=== PATIENT | female | born 1945 | race Caucasian/White ===

== ENCOUNTER 2016-06-11 08:23 | Observation (INO) | payer MEDICARE ==
[2016-06-11] MEDS ORDERED: ASPIRIN 81 MG TABLET, CHEWABLE PO ONE (09:11)
[2016-06-11 10:10] LABS: ABSOLUTE BASOPHILS # (AUTO) 0.1 10^3/uL (0.0-0.2); ABSOLUTE EOSINOPHILS # (AUTO) 0.3 10^3/uL (0.0-0.6); ABSOLUTE LYMPHOCYTES (AUTO) 1.6 10^3/uL (0.5-4.7); ABSOLUTE MONOCYTES (AUTO) 0.4 10^3/uL (0.1-1.4); ABSOLUTE NEUT (AUTO) 3.9 10^3/uL (1.7-8.2); BASOPHILS % (AUTO) 0.9 % (0-2); HEMATOCRIT 35.3 % (36.0-47.0); HEMOGLOBIN 11.9 g/dL (12.0-15.5); HGB HCT DIFFERENCE 0.4; LYMPHOCYTES % (AUTO) 25.2 % (13-45); MEAN CORPUSCULAR HEMOGLOBIN 30.1 pg (27.0-33.4); MEAN CORPUSCULAR HGB CONC 33.7 g/dL (32.0-36.0); MEAN CORPUSCULAR VOLUME 89 fl (80-97); MONOCYTES % (AUTO) 6.3 % (3-13); RED BLOOD COUNT 3.95 10^6/uL (3.72-5.28); RED CELL DISTRIBUTION WIDTH 13.8 % (11.5-14.0); SEGMENTED NEUTROPHILS % (AUTO) 62.6 % (42-78); WHITE BLOOD COUNT 6.2 10^3/uL (4.0-10.5)
[2016-06-11 10:24] LABS: ALANINE AMINOTRANSFERASE 32 U/L (9-52); ALBUMIN 3.8 g/dL (3.5-5.0); ALKALINE PHOSPHATASE 78 U/L (38-126); ANION GAP 12 (5-19); ASPARTATE AMINO TRANSFERASE 30 U/L (14-36); BILIRUBIN,TOTAL 0.4 mg/dL (0.2-1.3); BLOOD UREA NITROGEN 14 mg/dL (7-20); CALCIUM 8.8 mg/dL (8.4-10.2); CARBON DIOXIDE 27 mmol/L (22-30); CHLORIDE 106 mmol/L (98-107); CREATINE KINASE 48 U/L (30-135); CREATININE RESULT 1.03 mg/dL (0.52-1.25); GLUCOSE 160 mg/dL (75-110); POTASSIUM 4.3 mmol/L (3.6-5.0); SODIUM 144.9 mmol/L (137-145); TOTAL PROTEIN 6.8 g/dL (6.3-8.2)
[2016-06-11 10:36] LABS: CREATINE KINASE MB 0.69 ng/mL (<4.55); TROPONIN I 0.013 ng/mL
--- NOTE | 2016-06-11 11:02 | ER Document Report ---
ED General - General Chief Complaint: Palpitations Stated Complaint: CHEST PAIN Mode of Arrival: Ambulatory Information source: Patient Notes: Patient presents to the emergency department with complaints of chest pain. Patient reports she was walking up with right shoulder pain at 6:30. She reports at that time she felt her heart beating very hard she began to sweat profusely and became nauseated. She denies fever vomiting diarrhea. She denies history of cardiac disease but reports that she has had this symptom before and has scheduled an appointment with Dr. Bates in [place] next Wednesday. Patient is a diabetic, with history of high cholesterol, HTN. TRAVEL OUTSIDE OF THE [place] IN LAST 30 DAYS: No - HPI Onset: This morning Onset/Duration: Sudden Severity: Mild - shoulder pain very minimal Associated symptoms: Nausea, Sweating Exacerbated by: Denies Relieved by: Denies Similar symptoms previously: Yes Recently seen / treated by doctor: No - Related Data Allergies/Adverse Reactions: No Known Allergies Allergy (Verified 07/04/14 10:23) Home Medications: Current Home Medications Aspirin [Aspirin EC] 81 mg PO DAILY 06/11/16 [History] Metoprolol Succinate [Toprol Xl 50 mg Tab.sr] 50 mg PO DAILY 06/11/16 [History] Omeprazole 20 mg PO DAILY 06/11/16 [History] Past Medical History - General Information source: Patient Last Menstrual Period: susana - Social History Smoking Status: Never Smoker Chew tobacco use (# tins/day): No Frequency of alcohol use: None Drug Abuse: None Lives with: Alone Family History: Reviewed & Not Pertinent Patient has suicidal ideation: No Patient has homicidal ideation: No - Past Medical History Cardiac Medical History: Reports: Hx Hypercholesterolemia, Hx Hypertension Denies: Hx Atrial Fibrillation, Hx Congestive Heart Failure, Hx Coronary Artery Disease, Hx Heart Attack Pulmonary Medical History: Reports: Hx Pneumonia Denies: Hx Asthma, Hx Bronchitis, Hx COPD, Hx Tuberculosis Neurological Medical History: Denies: Hx Cerebrovascular Accident, Hx Migraine, Hx Seizures Endocrine Medical History: Reports: Hx Diabetes Mellitus Type 1, Hx Diabetes Mellitus Type 2 Renal/ Medical History: Denies: Hx Peritoneal Dialysis Musculoskeltal Medical History: Denies Hx Arthritis, Denies Hx Gout, Denies Hx Multiple Sclerosis, Denies Hx Muscular Dystrophy Traumatic Medical History: Denies: Hx Traumatic Brain Injury Past Surgical History: Reports: Hx Bowel Surgery, Hx Breast Surgery, Hx Orthopedic Surgery - left arm, collar bone. Denies: Hx Appendectomy, Hx Section, Hx Cholecystectomy, Hx Coronary Artery Bypass Graft, Hx Gastric Bypass Surgery, Hx Herniorrhaphy, Hx Hysterectomy, Hx Mastectomy, Hx Pacemaker, Hx Tonsillectomy, Hx Tubal Ligation - Immunizations Hx Diphtheria, Pertussis, Tetanus Vaccination: - unsure Hx Pneumococcal Vaccination: 03/31/11 Review of Systems - Review of Systems Notes: Review HPI for review of systems., All other systems negative Physical Exam - Vital signs Vitals: Temp Pulse Resp BP Pulse Ox 97.5 F 56 L 20 149/54 H 97 06/11/16 08:40 06/11/16 08:40 06/11/16 08:40 06/11/16 08:40 06/11/16 08:40 - Notes Notes: PHYSICAL EXAMINATION: GENERAL: Patient looks good, nontoxic looking, Well-appearing and in no acute distress smiles easily, INAJA HEAD: Atraumatic, normocephalic. EYES: Pupils equal round extraocular movements intact, sclera anicteric, conjunctiva are normal. ENT: nares patent, oropharynx clear without exudates. Moist mucous membranes. NECK: Normal range of motion, supple without lymphadenopathy LUNGS: CTAB and equal. No wheezes rales or rhonchi. HEART: Regular rate and rhythm without murmurs ABDOMEN: Soft, no tenderness. No guarding, no rebound EXTREMITIES: Normal range of motion, no pitting edema. No cyanosis. NEUROLOGICAL: Cranial nerves grossly intact. Normal sensory/motor exams. PSYCH: Normal mood, normal affect. SKIN: Warm, Dry, normal turgor, no rashes or lesions noted Course - Re-evaluation Re-evalutation: 06/11/16 11:00 Dr. Amos consult ed for admission. Patient admitted to telemetry for chest pain. Patient updated on plan of care. She verbalized understanding no distress denies chest pain at this time - Vital Signs Vital signs: Temp Pulse Resp BP Pulse Ox 97.9 F 56 L 13 127/56 H 98 06/11/16 13:29 06/11/16 08:40 06/11/16 15:02 06/11/16 15:02 06/11/16 15:02 - Laboratory Result Diagrams: 06/11/16 09:36 06/11/16 09:36 Laboratory results interpreted by me: 06/11/16 06/11/16 06/11/16 09:36 09:36 13:00 Hgb 11.9 L Hct 35.3 L Est GFR (Non-Af Amer) 53 L Glucose 160 H Urine Blood SMALL H - Diagnostic Test Radiology reviewed: Image reviewed, Reports reviewed - IMPRESSION: CARDIAC ENLARGEMENT. MILD VASCULAR CONGESTION. - EKG Interpretation by Me EKG shows normal: Sinus rhythm Rate: Bradycardia When compared to previous EKG there are: No significant change Discharge - Discharge Clinical Impression: Chest pain Qualifiers: Chest pain type: unspecified Qualified Code(s): R07.9 - Chest pain, unspecified Condition: Stable Disposition: ADMITTED INPATIENT Admitting Provider: Hospitalist - [facility] Unit Admitted: Telemetry
[2016-06-11 13:41] LABS: APPEARANCE,URINE CLEAR; BILIRUBIN,URINE NEGATIVE (NEGATIVE); GLUCOSE, URINE NEGATIVE (NEGATIVE); KETONES,URINE NEGATIVE (NEGATIVE); LEUKOCYTE ESTERASE,URINE NEGATIVE (NEGATIVE); NITRITE,URINE NEGATIVE (NEGATIVE); PROTEIN,URINE NEGATIVE (NEGATIVE); URINE SPECIFIC GRAVITY 1.006; UROBILINOGEN,URINE NEGATIVE mg/dL (<2.0)
[2016-06-11] MEDS ORDERED: ACETAMINOPHEN 325 MG TABLET PO PRN (13:45)
[2016-06-11] MEDS ORDERED: ONDANSETRON HCL INJ/PF 4 MG/2 ML SDV IV PRN (13:53)
[2016-06-11] MEDS ORDERED: NITROGLYCERIN 0.4 MG/TAB 25 TAB/BOTTLE SL PRN (13:55)
[2016-06-11] MEDS ORDERED: DEXTROSE 50%-WATER 25 GM/50 ML DISP.SYRIN IV PRN ×2 (13:56)
[2016-06-11] MEDS ORDERED: GLUCAGON,HUMAN RECOMB 1 MG INJ IM PRN (13:56)
[2016-06-11] MEDS ORDERED: INSULIN REG, HUMAN 100 UNIT/ML 3 ML VIAL (PYX) SUBCUT PRN (13:56)
[2016-06-11] MEDS ORDERED: DEXTROSE 40% GEL 15 GM TUBE PO PRN ×2 (13:56)
--- NOTE | 2016-06-11 14:09 | PDOC H&P ---
History of Present Illness Admission Date/PCP: 06/11/16 11:08 RONEN VILLASEÑOR PA-C Patient complains of: Chest pain History of Present Illness: CECY RUIZ is a 71 year old female, diabetes mellitus, hypertension, hypercholesterolemia presents to the hospital with chest pain upon waking up this morning. Earlier today she woke up with shoulder pain on the right side. Patient has been dealing with arthritic pains in the shoulder for quite a while. Patient was having a lot of discomfort and eventually patient started to feel lightheaded with some sweating. This was subsequently followed by palpitation and chest tightness on the precordium without radiation. Patient also aspirated and partially relieved the symptoms. Patient went to the emergency room for evaluation. She had a recent stress test performed by his conveyor line battery charger last year. She was then referred for observation. The patient's chest pain eventually resolved. Past Medical History Past Medical History: Medications reconciliation pending verification from the patient's pharmacist Cardiac Medical History: Reports: Hyperlipidema, Hypertension Denies: Atrial Fibrillation, Congestive Heart Failure, Coronary Artery Disease, Myocardial Infarction Pulmonary Medical History: Reports: Pneumonia Denies: Asthma, Bronchitis, Chronic Obstructive Pulmonary Disease (COPD), Tuberculosis Neurological Medical History: Denies: Migraine, Seizures Endocrine Medical History: Reports: Diabetes Mellitus Type 1, Diabetes Mellitus Type 2 Musculoskeltal Medical History: Denies: Arthritis, Gout Traumatic Medical History: Denies: Traumatic Brain Injury Hematology: Denies: Anemia Past Surgical History Past Surgical History: Reports: Orthopedic Surgery - left arm, collar bone Denies: Appendectomy, Section, Cholecystectomy, Coronary Artery Bypass Graft, Gastric Bypass Surgery, Herniorrhaphy, Hysterectomy, Mastectomy, Pacemaker, Tonsillectomy, Tubal Ligation Social History Lives with: Alone Smoking Status: Never Smoker Frequency of Alcohol Use: None Hx Recreational Drug Use: No Drugs: None Hx Prescription Drug Abuse: No Family History Family History: DM Parental Family History Reviewed: Yes Children Family History Reviewed: Yes Sibling(s) Family History Reviewed.: Yes Medication/Allergy Home Medications: Metoprolol Tartrate [Lopressor 25 mg Tablet] 50 mg PO BID 11/08/12 Aspirin [Aspirin 81 mg Chewable Tablet] 1 tab PO DAILY 07/04/14 Glimepiride [Amaryl] 3 tab PO QHS 07/04/14 Simvastatin [Zocor 20 mg Tablet] 1 tab PO QHS 07/04/14 Vitamin D3/Vitamin K2 [D3 + K2 Dots 1,000 Units Tab] 1 tab PO DAILY 07/04/14 Omeprazole 20 mg PO DAILY 06/11/16 Allergies/Adverse Reactions: No Known Allergies Allergy (Verified 07/04/14 10:23) Review of Systems Constitutional: ABSENT: chills, fever(s), headache(s), weight gain, weight loss Eyes: ABSENT: visual disturbances Ears: ABSENT: hearing changes Nose, Mouth, and Throat: ABSENT: mouth pain, sore throat Cardiovascular: PRESENT: chest pain, palpitations. ABSENT: dyspnea on exertion , edema, orthropnea Respiratory: ABSENT: cough, hemoptysis, sputum Gastrointestinal: PRESENT: nausea. ABSENT: abdominal pain, bloating, constipation, diarrhea, hematemesis, hematochezia, melena, vomiting Genitourinary: ABSENT: dysuria, hematuria Musculoskeletal: ABSENT: joint swelling Integumentary: ABSENT: pruritus, rash, wounds Neurological: PRESENT: dizziness - More on lightheadedness. ABSENT: abnormal gait, abnormal speech, confusion, focal weakness, syncope Psychiatric: ABSENT: anxiety, depression, homidical ideation, suicidal ideation Endocrine: ABSENT: cold intolerance, heat intolerance, polydipsia, polyuria Hematologic/Lymphatic: ABSENT: easy bleeding, easy bruising Physical Exam Vital Signs: Temp Pulse Resp BP Pulse Ox 97.9 F 56 L 19 132/62 H 98 06/11/16 13:29 06/11/16 08:40 06/11/16 13:04 06/11/16 13:04 06/11/16 13:04 General appearance: PRESENT: no acute distress, well-developed, well-nourished Head exam: PRESENT: atraumatic, normocephalic Eye exam: PRESENT: conjunctiva pink, EOMI, PERRLA. ABSENT: scleral icterus Ear exam: PRESENT: normal external ear exam. ABSENT: drainage Mouth exam: PRESENT: moist, neck supple, tongue midline Throat exam: ABSENT: post pharyngeal erythema, tonsillar erythema Neck exam: ABSENT: carotid bruit, JVD, lymphadenopathy, thyromegaly Respiratory exam: PRESENT: clear to auscultation faby. ABSENT: rales, rhonchi, wheezes Cardiovascular exam: PRESENT: RRR, systolic murmur - Left sternal border. ABSENT: diastolic murmur, rubs Pulses: PRESENT: normal dorsalis pedis pul Vascular exam: PRESENT: normal capillary refill GI/Abdominal exam: PRESENT: normal bowel sounds, soft. ABSENT: distended, guarding, mass, organolmegaly, rebound, tenderness Rectal exam: PRESENT: deferred Extremities exam: PRESENT: full ROM. ABSENT: calf tenderness, clubbing, pedal edema Neurological exam: PRESENT: alert, awake, oriented to person, oriented to place , oriented to time, oriented to situation Psychiatric exam: PRESENT: appropriate affect, normal mood. ABSENT: homicidal ideation, suicidal ideation Skin exam: PRESENT: dry, intact, warm. ABSENT: cyanosis, rash Results Laboratory Results: 06/11/16 13:00 Urine Color STRAW Urine Appearance CLEAR Urine pH 5.0 Ur Specific [place] 1.006 Urine Protein NEGATIVE Urine Glucose (UA) NEGATIVE Urine Ketones NEGATIVE Urine Blood SMALL H Urine Nitrite NEGATIVE Ur Leukocyte Esterase NEGATIVE Urine WBC (Auto) 1 Urine RBC (Auto) 0 06/11/16 13:00 Troponin I 0.016 Impressions: Chest X-Ray 06/11/16 09:11 IMPRESSION: CARDIAC ENLARGEMENT. MILD VASCULAR CONGESTION. Assessment & Plan - Diagnosis (1) Chest pain Qualifiers: Chest pain type: unspecified Qualified Code(s): R07.9 - Chest pain, unspecified Is this a current diagnosis for this admission?: Yes (2) Hypercholesterolemia Is this a current diagnosis for this admission?: Yes (3) Diabetes mellitus type 2, controlled Qualifiers: Diabetes mellitus complication status: with unspecified complications Diabetes mellitus jail insulin use: without jail use Qualified Code(s): E11.8 - Type 2 diabetes mellitus with unspecified complications Is this a current diagnosis for this admission?: Yes (4) Hypertension Qualifiers: Hypertension type: essential hypertension Qualified Code(s): I10 - Essential (primary) hypertension Is this a current diagnosis for this admission?: Yes - Time Time Spent: 30 to 50 Minutes Anticipated discharge: Home Within: within 24 hours - Plan Summary Plan Summary: Patient will be admitted to observation. I will put the patient on aspirin and nitroglycerin. We will obtain serial cardiac enzymes. If negative patient can be discharged home. Patient have a cardiology appointment in 1 week in [place]. She will be on sliding scale insulin and her diabetic medication will be continued. She will be on supplemental oxygen and DVT prophylaxis.
[2016-06-11] MEDS: NITROGLYCERIN 2% OINTMENT 1 GM PACKET TP SCH (18:19)
[2016-06-11] MEDS: DOCUSATE SODIUM 100 MG CAPSULE PO SCH (18:19)
[2016-06-11] MEDS ORDERED: GLIMEPIRIDE 4 MG TABLET PO SCH (22:00)
[2016-06-11] MEDS ORDERED: SIMVASTATIN PO SCH (22:00)
[2016-06-11] MEDS ORDERED: GLIMEPIRIDE PO SCH (22:00)
[2016-06-11] MEDS ORDERED: SIMVASTATIN 10 MG TABLET PO SCH (22:00)
[2016-06-11] MEDS: METOPROLOL TARTRATE 50 MG TABLET PO SCH (22:29)
[2016-06-12] MEDS: NITROGLYCERIN 2% OINTMENT 1 GM PACKET TP SCH ×2 (00:19→06:37)
[2016-06-12] MEDS ORDERED: LANSOPRAZOLE 30 MG TAB.RAP.DR PO SCH (06:00)
[2016-06-12] MEDS ORDERED: ENOXAPARIN SODIUM INJ 40 MG/0.4 ML DISP.SYRIN SUBCUT SCH (08:00)
[2016-06-12] MEDS: DOCUSATE SODIUM 100 MG CAPSULE PO SCH (09:02)
[2016-06-12] MEDS: METOPROLOL TARTRATE 50 MG TABLET PO SCH (09:02)
[2016-06-12] MEDS ORDERED: VITAMIN K2 PO SCH (10:00)
[2016-06-12] MEDS ORDERED: CHOLECALCIFEROL (D3) 1,000 UNIT TABLET PO SCH (10:00)
[2016-06-12] MEDS ORDERED: VITAMIN D3 PO SCH (10:00)
[2016-06-12] MEDS ORDERED: ASPIRIN 81 MG TABLET, CHEWABLE PO SCH (10:00)
[2016-06-12 13:34] VITALS: BP 121/43
--- NOTE | 2016-06-12 13:38 | PDOC DISCHARGE SUMMARY ---
General - Admit/Disc Date/PCP Admission Date/Primary Care Provider: 06/11/16 13:45 RONEN VILLASEÑOR PA-C Discharge Date: 06/12/16 - Discharge Diagnosis (1) Chest pain Is this a current diagnosis for this admission?: Yes (2) Hypercholesterolemia Is this a current diagnosis for this admission?: Yes (3) Diabetes mellitus type 2, controlled Is this a current diagnosis for this admission?: Yes (4) Hypertension Is this a current diagnosis for this admission?: Yes - Additional Information Resuscitation Status: Full Code Discharge Diet: Cardiac - low-fat low-salt Discharge Activity: Activity As Tolerated, Balance Activity w/Rest Home Medications: Glimepiride [Amaryl] 3 mg PO QHS 07/04/14 Simvastatin [Zocor 20 mg Tablet] 20 mg PO QHS 07/04/14 Vitamin D3/Vitamin K2 [D3 + K2 Dots 1,000 Units Tab] 1 tab PO DAILY 07/04/14 Aspirin [Aspirin EC] 81 mg PO DAILY 06/11/16 Metoprolol Succinate [Toprol Xl 50 mg Tab.sr] 50 mg PO DAILY 06/11/16 Omeprazole 20 mg PO DAILY 06/11/16 Nitroglycerin [Nitrostat 0.4 mg (1/150 Gr) Tabs 25/Bottle] 1 tab SL Q5MP PRN #2 bottle 06/12/16 Additional Information: Return to the emergency room if symptoms recur. History of Present Illness Patient complains of: Chest pain History of Present Illness: CECY RUIZ is a 71 year old female, diabetes mellitus, hypertension, hypercholesterolemia presents to the hospital with chest pain upon waking up this morning. Earlier today she woke up with shoulder pain on the right side. Patient has been dealing with arthritic pains in the shoulder for quite a while. Patient was having a lot of discomfort and eventually patient started to feel lightheaded with some sweating. This was subsequently followed by palpitation and chest tightness on the precordium without radiation. Patient also aspirated and partially relieved the symptoms. Patient went to the emergency room for evaluation. She had a recent stress test performed by his block paver last year. She was then referred for observation. The patient's chest pain eventually resolved. Hospital Course Hospital Course: The patient was admitted to telemetry. The patient was placed on aspirin and nitroglycerin as well as oxygen. Patient has been chest pain-free all throughout. Serial cardiac enzymes were obtained and were negative. EKGs did not reveal any evolutionary changes. There is anterior T-wave abnormalities which were old and likewise first-degree AV block which were likewise old findings. The patient remains stable and wanted to go home and continue workup on an outpatient basis. Patient reports that she already has an appointment with her block paver in 5 days. The rest of the hospital stay is unremarkable. She was advised to return to the emergency room if symptoms recur. Physical Exam Vital Signs: Temp Pulse Resp BP Pulse Ox 97.9 F 52 L 18 128/50 H 100 06/12/16 07:56 06/12/16 07:56 06/12/16 07:56 06/12/16 07:56 06/12/16 07:56 Intake & Output 06/11/16 06/12/16 06/13/16 06:59 06:59 06:59 Intake Total 0 Balance 0 Weight 89 kg General appearance: PRESENT: no acute distress, cooperative Head exam: PRESENT: normocephalic Eye exam: PRESENT: EOMI, PERRLA Mouth exam: PRESENT: moist, neck supple Neck exam: ABSENT: JVD Respiratory exam: PRESENT: clear to auscultation faby. ABSENT: crackles, rales, rhonchi, wheezes Cardiovascular exam: PRESENT: RRR. ABSENT: gallop GI/Abdominal exam: PRESENT: normal bowel sounds, soft. ABSENT: distended, tenderness Extremities exam: PRESENT: other - Nonpitting edema Neurological exam: PRESENT: alert, awake, oriented to situation Skin exam: PRESENT: dry, warm. ABSENT: cyanosis Results Laboratory Results: 06/11/16 06/11/16 06/11/16 14:38 14:38 19:12 Creatine Kinase 41 41 Troponin I 0.015 06/11/16 06/12/16 19:12 01:34 Creatine Kinase Troponin I < 0.012 < 0.012 Impressions: Chest X-Ray 06/11/16 09:11 IMPRESSION: CARDIAC ENLARGEMENT. MILD VASCULAR CONGESTION. Qualifiers PATEINT BEING DISCHARGED WITH ANY OF THE FOLLOWING DIAGNOSIS?: No Plan Discharge Plan: Follow-up with primary care physician in one week to 2 weeks. Follow-up with block paver in 5 days. Return to the emergency room if symptoms recur. Time Spent: Less than 30 Minutes
--- NOTE | 2016-06-12 14:51 | EKG REPORT ---
SEVERITY:- ABNORMAL ECG - SINUS BRADYCARDIA LEFT AXIS DEVIATION ABNORMAL T, CONSIDER ISCHEMIA, ANTERIOR LEADS : Confirmed by: Yomi Diallo 12-Jun-2016 14:50:11
== END 2016-06-12 13:55 | disposition home or self-care (01) ==
LOC: ER 08:23 → EH 11:08 → UNDOADMOB 11:08 → EH 13:45 → 4S 06-12 01:15
DX: R07.9 Chest pain, unspecified (principal); E78.00 Pure hypercholesterolemia, unspecified; E11.9 Type 2 diabetes mellitus without complications; I10 Essential (primary) hypertension; Z79.84 Long term (current) use of oral hypoglycemic drugs; E78.5 Hyperlipidemia, unspecified
CPT/HCPCS: 93005; 99285; 36415 ×2; 82553; 82962 ×2; 82550; 85025; 80053; 81001; 84484 ×2; 71010; 93010; G0378 ×3; A9270 ×14; J1650; J3490 ×2; J1815

== ENCOUNTER 2016-06-23 06:37 | Day surgery (SDC) | payer MEDICARE ==
[2016-06-23] MEDS ORDERED: NA PHOS,M-B/NA PHOS,DI-BA (ADULT) 133 ML ENEMA PR ONE (07:09)
[2016-06-23] MEDS ORDERED: ONDANSETRON HCL INJ/PF 4 MG/2 ML SDV ONE (07:35)
[2016-06-23] MEDS ORDERED: NALOXONE HCL INJ/PF 0.4 MG/1 ML SDV ONE (07:35)
[2016-06-23] MEDS ORDERED: FLUMAZENIL INJ 0.5 MG/5 ML VIAL IV ONE (07:36)
[2016-06-23] MEDS ORDERED: FENTANYL CITRATE INJ/PF 100 MCG/2 ML AMPUL ONE (07:36)
[2016-06-23] MEDS ORDERED: MIDAZOLAM 2 MG/2 ML INJ ONE (07:36)
[2016-06-23] MEDS ORDERED: GLYCOPYRROLATE INJ 0.4 MG/2 ML VIAL ONE (07:36)
[2016-06-23] MEDS ORDERED: PROMETHAZINE HCL INJ 25 MG/1 ML VIAL ONE (07:36)
[2016-06-23] MEDS ORDERED: EPINEPHRINE INJ 1 MG/10 ML DISP.SYRIN ONE (07:37)
[2016-06-23] MEDS ORDERED: GLUCAGON,HUMAN RECOMB 1 MG INJ ONE (07:37)
[2016-06-23 07:40] LABS: HEMATOCRIT 35.7 % (36.0-47.0); HEMOGLOBIN 11.8 g/dL (12.0-15.5); HGB HCT DIFFERENCE -0.3; MEAN CORPUSCULAR VOLUME 91 fl (80-97); RED BLOOD COUNT 3.92 10^6/uL (3.72-5.28); RED CELL DISTRIBUTION WIDTH 13.8 % (11.5-14.0); WHITE BLOOD COUNT 7.1 10^3/uL (4.0-10.5)
--- NOTE | 2016-06-23 08:56 | Operative Report ---
Operative Report DATE OF SURGERY: 06/23/16 PREOPERATIVE DIAGNOSIS: History of colon polyps POSTOPERATIVE DIAGNOSIS: History of colon polyps, sigmoid diverticulosis, inadequate bowel prep. OPERATION: Flexible sigmoidoscopy SURGEON: ILANA BALBUENA ANESTHESIA: Moderate Sedation TISSUE REMOVED OR ALTERED: None COMPLICATIONS: None ESTIMATED BLOOD LOSS: none INTRAOPERATIVE FINDINGS: Multiple sigmoid diverticulosis. Inadequate bowel prep with solid and liquid stool throughout the sigmoid and left colon. PROCEDURE: Informed consent was obtained. Patient was brought to the endoscopy suite IV sedation with Versed and fentanyl was administered digital rectal exam revealed no palpable perianal masses. Endoscope was passed via the patient's anus the bowel prep was inadequate with solid and liquid stool throughout the sigmoid and the left colon. Scope was passed to the splenic flexure but I encountered more solid stool therefore the procedure was stopped with plans for having the patient undergo a different bowel prep and rescheduling of her colonoscopy. Visualization was not adequate due to the amount of stool in the colon however no large obstructive lesions were seen in the left colon nor the sigmoid colon nor the rectum. There were multiple large diverticuli of the sigmoid colon. Patient tolerated procedure well with no apparent complications and was taken to the recovery area in stable condition. Sigmoid diverticulosis. Inadequate bowel prep. Will have the patient undergo a different bowel prep and reschedule her for a colonoscopy.
[2016-06-23 10:14] VITALS: BP 125/52
== END 2016-06-23 09:45 | disposition home or self-care (01) ==
LOC: END 06:37
PROVIDERS: ATTEND Surgery
PROC: 0DJD8ZZ Inspection of Lower Intestinal Tract, Via Natural or Artificial Opening Endoscopic (ICD-10-PCS; principal; 2016-06-23 08:45)
DX: K57.30 Diverticulosis of large intestine without perforation or abscess without bleeding (principal); Z86.010 Personal history of colon polyps; E11.9 Type 2 diabetes mellitus without complications; I10 Essential (primary) hypertension; K21.9 Gastro-esophageal reflux disease without esophagitis; M19.90 Unspecified osteoarthritis, unspecified site; R01.1 Cardiac murmur, unspecified; H91.90 Unspecified hearing loss, unspecified ear; Z79.899 Other long term (current) drug therapy; Z79.82 Long term (current) use of aspirin
CPT/HCPCS: 45330; 36415; 82962; 85027; J2250; J3010; A9270; J0171; J1610; J2310; J2405; J2550; J3490

== ENCOUNTER 2016-08-18 09:06 | Day surgery (SDC) | payer MEDICARE ==
[2016-08-18] MEDS ORDERED: NALOXONE HCL INJ/PF 0.4 MG/1 ML SDV ONE (09:50)
[2016-08-18] MEDS ORDERED: PROMETHAZINE HCL INJ 25 MG/1 ML VIAL ONE (09:50)
[2016-08-18] MEDS ORDERED: ONDANSETRON HCL INJ/PF 4 MG/2 ML SDV ONE (09:50)
[2016-08-18] MEDS ORDERED: GLYCOPYRROLATE INJ 0.4 MG/2 ML VIAL ONE (09:51)
[2016-08-18] MEDS ORDERED: FLUMAZENIL INJ 0.5 MG/5 ML VIAL IV ONE (09:52)
[2016-08-18] MEDS ORDERED: FENTANYL CITRATE INJ/PF 100 MCG/2 ML AMPUL ONE (09:52)
[2016-08-18] MEDS ORDERED: EPINEPHRINE INJ 1 MG/10 ML DISP.SYRIN ONE (09:52)
[2016-08-18] MEDS ORDERED: GLUCAGON,HUMAN RECOMB 1 MG INJ ONE (09:52)
[2016-08-18 09:56] LABS: HEMATOCRIT 34.7 % (36.0-47.0); HEMOGLOBIN 11.5 g/dL (12.0-15.5); HGB HCT DIFFERENCE -0.2; MEAN CORPUSCULAR HEMOGLOBIN 29.6 pg (27.0-33.4); MEAN CORPUSCULAR HGB CONC 33.2 g/dL (32.0-36.0); MEAN CORPUSCULAR VOLUME 89 fl (80-97); RED BLOOD COUNT 3.89 10^6/uL (3.72-5.28); RED CELL DISTRIBUTION WIDTH 13.5 % (11.5-14.0); WHITE BLOOD COUNT 7.4 10^3/uL (4.0-10.5)
[2016-08-18 10:14] LABS: ANION GAP 13 (5-19); BLOOD UREA NITROGEN 15 mg/dL (7-20); CALCIUM 9.6 mg/dL (8.4-10.2); CARBON DIOXIDE 28 mmol/L (22-30); CHLORIDE 103 mmol/L (98-107); CREATININE RESULT 1.13 mg/dL (0.52-1.25); GLUCOSE 143 mg/dL (75-110); POTASSIUM 4.4 mmol/L (3.6-5.0); SODIUM 143.7 mmol/L (137-145)
[2016-08-18] MEDS: MIDAZOLAM 2 MG/2 ML INJ ONE ×2 (10:22→10:26)
--- NOTE | 2016-08-18 10:46 | Operative Report ---
Operative Report DATE OF SURGERY: 08/18/16 PREOPERATIVE DIAGNOSIS: History of colon polyps POSTOPERATIVE DIAGNOSIS: Poor bowel prep OPERATION: Flexible sigmoidoscopy. SURGEON: ILANA BALBUENA ANESTHESIA: Moderate Sedation TISSUE REMOVED OR ALTERED: None COMPLICATIONS: None ESTIMATED BLOOD LOSS: none INTRAOPERATIVE FINDINGS: Solid stool in the rectum and the sigmoid colon and the descending colon precluding adequate visualization of the colon PROCEDURE: Informed consent was obtained. Patient was brought to the endoscopy suite. IV sedation with Versed and fentanyl was administered. Digital rectal exam revealed no palpable perianal masses. Endoscope was passed via the patient's anus. The rectum was partially filled with the solid stool. The scope was able to be passed into the sigmoid colon where I encounter more stool and diverticuli. The scope was passed to the descending colon where encountered more solid stool. At this point I stopped the procedure due to inadequate bowel prep. The parts of the sigmoid colon and the rectum that I did visualize the was all unremarkable other than scattered diverticuli of the sigmoid colon. Patient tolerated procedure well with no apparent complications. Inadequate bowel prep. Will have the patient stay on clear liquids today and have her take another gallon of GoLYTELY and will plan to attempt another colonoscopy tomorrow.
--- NOTE | 2016-08-18 10:51 | PDOC DISCHARGE SUMMARY ---
Discharge Summary (SDC) - Discharge Final Diagnosis: Inadequate bowel prep. Date of Surgery: 08/18/16 Discharge Date: 08/18/16 Condition: Good Treatment or Instructions: Flexible sigmoidoscopy. Colonoscopy unable to be performed due to inadequate bowel prep. May discharge patient home when met discharge criteria. Have patient stay on clear liquids today. Nothing by mouth post midnight except for medications. Have patient take gallon of GoLYTELY this evening. Patient to return tomorrow for colonoscopy. Please schedule patient for colonoscopy for tomorrow morning. Prescriptions: Peg 3350/Na Sulf,Bicarb,Cl/KCl [Golytely Solution 4000 ml] 4,000 ml PO DAILY #1 bottle Discharge Diet: Clear Liquids - Stay on clear liquids today. Nothing by mouth after midnight except for medications. 1 gallon GoLYTELY this evening. Discharge Activity: Activity As Tolerated
[2016-08-18 11:48] VITALS: BP 133/53
== END 2016-08-18 12:00 | disposition home or self-care (01) ==
LOC: END 09:06
PROVIDERS: ATTEND Surgery
PROC: 0DJD8ZZ Inspection of Lower Intestinal Tract, Via Natural or Artificial Opening Endoscopic (ICD-10-PCS; principal; 2016-08-18 10:15)
DX: K57.30 Diverticulosis of large intestine without perforation or abscess without bleeding (principal); R11.2 Nausea with vomiting, unspecified; T81.89XA Other complications of procedures, not elsewhere classified, initial encounter; Y83.8 Other surgical procedures as the cause of abnormal reaction of the patient, or of later complication, without mention of misadventure at the time of the procedure; Y92.530 Ambulatory surgery center as the place of occurrence of the external cause; Z86.010 Personal history of colon polyps; I10 Essential (primary) hypertension; E78.5 Hyperlipidemia, unspecified; E10.9 Type 1 diabetes mellitus without complications; Z79.82 Long term (current) use of aspirin; Z79.899 Other long term (current) drug therapy
CPT/HCPCS: 45330; 36415; 82962; 85027; 80048; J2250; J3010; J0171; J1610; J2310; J2405; J2550; J3490

== ENCOUNTER 2016-08-19 09:11 | Day surgery (SDC) | payer MEDICARE ==
[2016-08-19] MEDS ORDERED: PROMETHAZINE HCL INJ 25 MG/1 ML VIAL ONE (11:14)
[2016-08-19] MEDS ORDERED: ONDANSETRON HCL INJ/PF 4 MG/2 ML SDV ONE (11:14)
[2016-08-19] MEDS ORDERED: NALOXONE HCL INJ/PF 0.4 MG/1 ML SDV ONE (11:14)
[2016-08-19] MEDS ORDERED: GLUCAGON,HUMAN RECOMB 1 MG INJ ONE (11:15)
[2016-08-19] MEDS ORDERED: EPINEPHRINE INJ 1 MG/10 ML DISP.SYRIN ONE (11:15)
[2016-08-19] MEDS ORDERED: FLUMAZENIL INJ 0.5 MG/5 ML VIAL IV ONE (11:15)
[2016-08-19] MEDS ORDERED: GLYCOPYRROLATE INJ 0.4 MG/2 ML VIAL ONE (11:15)
[2016-08-19] MEDS ORDERED: FENTANYL CITRATE INJ/PF 100 MCG/2 ML AMPUL ONE (11:15)
[2016-08-19] MEDS: MIDAZOLAM 2 MG/2 ML INJ ONE ×2 (11:29→11:33)
--- NOTE | 2016-08-19 11:56 | Operative Report ---
Operative Report DATE OF SURGERY: 08/19/16 PREOPERATIVE DIAGNOSIS: History of colon polyps. POSTOPERATIVE DIAGNOSIS: History of colon polyps OPERATION: Flexible sigmoidoscopy. SURGEON: ILANA BALBUENA ANESTHESIA: Moderate Sedation TISSUE REMOVED OR ALTERED: None COMPLICATIONS: None ESTIMATED BLOOD LOSS: none INTRAOPERATIVE FINDINGS: Still with poor prep with liquid thick stool throughout the colon, multiple large diverticuli throughout the colon PROCEDURE: Informed consent was obtained. Patient was brought to the endoscopy suite. IV sedation with Versed and fentanyl was administered. Digital rectal exam revealed no palpable perianal masses. Endoscope was passed via the patient's anus it was fed to probable bleed the descending colon. There was thick liquid stool throughout the colon making visualization very difficult. Furthermore she had multiple very large diverticuli that made the procedure very difficult with difficulty being able to see the lumen versus diverticuli especially with the thick liquid stool. With the bowel prep not getting better as I went more proximally into the colon, and the hazard that I was encountering with the diverticuli, I did not feel it safe to proceed with the current bowel prep. Procedure was stopped the scope was withdrawn. I did not see any obvious large masses but the visualization was poor. Assessment: Multiple large diverticuli of the colon. Combine with still a poor prep made for too hazardous of a colonoscopy. Will have her go 1 more day of the clear liquids with a GoLYTELY and reschedule her for colonoscopy tomorrow.
--- NOTE | 2016-08-19 11:59 | PDOC DISCHARGE SUMMARY ---
Discharge Summary (SDC) - Discharge Final Diagnosis: Diverticulosis of the colon. Inadequate bowel prep. Date of Surgery: 08/19/16 Discharge Date: 08/19/16 Condition: Good Treatment or Instructions: Attempted colonoscopy. May discharge patient home when met discharge criteria. We scheduled for colonoscopy tomorrow. Stay on clear liquids today. Taken another bottle of GoLYTELY this evening. Prescriptions: Peg 3350/Na Sulf,Bicarb,Cl/KCl [Golytely Solution 4000 ml] 4,000 ml PO DAILY #1 bottle Discharge Diet: Clear Liquids Discharge Activity: Activity As Tolerated Report the Following to Your Physician Immediately: Increase in Pain, Fever over 101 Degrees, Unusual Bleeding
[2016-08-19 12:38] VITALS: BP 153/55
== END 2016-08-19 12:42 | disposition home or self-care (01) ==
LOC: END 09:11
PROVIDERS: ATTEND Surgery
PROC: 0DJD8ZZ Inspection of Lower Intestinal Tract, Via Natural or Artificial Opening Endoscopic (ICD-10-PCS; principal; 2016-08-19 10:00)
DX: K57.30 Diverticulosis of large intestine without perforation or abscess without bleeding (principal); Z86.010 Personal history of colon polyps; E11.9 Type 2 diabetes mellitus without complications; I10 Essential (primary) hypertension; K21.9 Gastro-esophageal reflux disease without esophagitis; M19.90 Unspecified osteoarthritis, unspecified site; R01.1 Cardiac murmur, unspecified; H91.90 Unspecified hearing loss, unspecified ear; Z79.82 Long term (current) use of aspirin; Z79.899 Other long term (current) drug therapy
CPT/HCPCS: 45330; 82962; J2250; J3010; J1610; J0171; J2310; J2405; J2550; J3490

== ENCOUNTER 2016-08-20 09:50 | Observation (INO) | payer MEDICARE ==
[2016-08-20] MEDS ORDERED: ONDANSETRON HCL INJ/PF 4 MG/2 ML SDV ONE ×3 (10:38→15:33)
[2016-08-20] MEDS ORDERED: PROMETHAZINE HCL INJ 25 MG/1 ML VIAL ONE (10:38)
[2016-08-20] MEDS ORDERED: NALOXONE HCL INJ/PF 0.4 MG/1 ML SDV ONE (10:38)
[2016-08-20] MEDS ORDERED: FLUMAZENIL INJ 0.5 MG/5 ML VIAL IV ONE (10:39)
[2016-08-20] MEDS ORDERED: GLYCOPYRROLATE INJ 0.4 MG/2 ML VIAL ONE (10:39)
[2016-08-20] MEDS ORDERED: GLUCAGON,HUMAN RECOMB 1 MG INJ ONE (10:40)
[2016-08-20] MEDS ORDERED: EPINEPHRINE INJ 1 MG/10 ML DISP.SYRIN ONE (10:40)
[2016-08-20] MEDS: MIDAZOLAM 2 MG/2 ML INJ ONE ×3 (11:16→11:37)
[2016-08-20] MEDS: FENTANYL CITRATE INJ/PF 100 MCG/2 ML AMPUL ONE ×4 (11:18→11:42)
--- NOTE | 2016-08-20 12:35 | PDOC DISCHARGE SUMMARY ---
Discharge Summary (SDC) - Discharge Final Diagnosis: Diverticulosis of the colon. History of colon polyps. Date of Surgery: 08/20/16 Discharge Date: 08/20/16 Condition: Good Treatment or Instructions: Underwent colonoscopy. Inadequate visualization of the colon however. Please ordered double contrast barium enema through radiology today. Follow-up with me in 1-2 weeks. Discharge Diet: As Tolerated Discharge Activity: Activity As Tolerated Report the Following to Your Physician Immediately: Increase in Pain, Fever over 101 Degrees, Unusual Bleeding
--- NOTE | 2016-08-20 12:36 | Operative Report ---
Operative Report DATE OF SURGERY: 08/20/16 PREOPERATIVE DIAGNOSIS: History of Colon polyps POSTOPERATIVE DIAGNOSIS: History of colon polyps, diverticulosis of the colon. OPERATION: Colonoscopy SURGEON: ILANA BALBUENA ANESTHESIA: Moderate Sedation TISSUE REMOVED OR ALTERED: None COMPLICATIONS: None ESTIMATED BLOOD LOSS: none INTRAOPERATIVE FINDINGS: Multiple large diverticuli of the sigmoid and left colon. Markedly markedly markedly redundant colon precluding good visualization of the colon. PROCEDURE: Informed consent was obtained. Patient was brought to the endoscopy suite. IV sedation with Versed and fentanyl was administered. Digital rectal exam revealed no palpable perianal masses. Endoscope was passed via the patient's anus it was fed to the cecum. The procedure was extremely difficult due to the marked redundancies of her colon as well as multiple large diverticuli in the left and sigmoid colon. After multiple technical measures the scope was able to be passed to the cecum. However due to the marked redundancies of her colon adequately visualization was not able to be obtained. No obvious masses were identified. No obstructive lesions were seen. Multiple large diverticuli was encountered in the left and the sigmoid colon. The rectum appeared normal. Patient tolerated procedure well with no apparent complications and was taken to the recovery area in stable condition. Assessment: No obvious abnormalities other than extensive diverticulosis noted. However I am not confident at all that I have visualize the colon adequately. Her marked redundancies preclude adequate visualization of her colon. Her bowel prep was finally adequate at this time. I will order a double contrast barium enema. Follow-up with the patient after this study.
[2016-08-20] MEDS ORDERED: ONDANSETRON HCL INJ/PF 4 MG/2 ML SDV IV ONE ×2 (13:00→16:00)
[2016-08-20] MEDS ORDERED: GLUCAGON,HUMAN RECOMB 1 MG INJ IM PRN (16:27)
[2016-08-20] MEDS ORDERED: DEXTROSE 40% GEL 15 GM TUBE PO PRN ×2 (16:27)
[2016-08-20] MEDS ORDERED: ONDANSETRON HCL INJ/PF 4 MG/2 ML SDV IV PRN (16:27)
[2016-08-20] MEDS ORDERED: DEXTROSE 50%-WATER 25 GM/50 ML DISP.SYRIN IV PRN ×2 (16:27)
[2016-08-20] MEDS ORDERED: NORMAL SALINE 1000 ML 1,000 ML IV PRN (16:27)
[2016-08-20] MEDS ORDERED: (PENDING PHARMACY ID) (Cholecalciferol (Vitamin D3) [Vitamin D3] 50,000 UNIT) PO PRN (16:32)
[2016-08-20] MEDS ORDERED: NITROGLYCERIN 0.4 MG/TAB 25 TAB/BOTTLE SL PRN (16:32)
--- NOTE | 2016-08-20 16:39 | PDOC H&P ---
History of Present Illness Admission Date/PCP: RONEN VILLASEÑOR PA-C Patient complains of: Nausea History of Present Illness: CECY RUIZ is a 71 year old female who underwent colonoscopy today followed by double contrast barium enema. She had the a lot of difficulty obtaining adequate bowel prep for colonoscopy and has been on clear liquids for the past 5 days with multiple doses of GoLYTELY. This was her third colonoscopy attempt this week due to inadequate bowel prep. Her bowel prep was finally adequate this time however due to the marked redundancies of her bowel it was not adequate visualization of the colon therefore she underwent the double contrast barium enema today. We did not want to reschedule her for double contrast barium enema because it was so difficult to obtain adequate prep. She has the been having nausea and vomiting after her procedures today although it has the markedly improved. With the patient's generalized weakness the due to the difficulties of this week and her nausea, will admit the patient for observation and IV fluids. Patient denies any abdominal pain. Past Medical History Cardiac Medical History: Reports: Hyperlipidema, Hypertension Denies: Atrial Fibrillation, Congestive Heart Failure, Coronary Artery Disease, Myocardial Infarction Pulmonary Medical History: Reports: Pneumonia Denies: Asthma, Bronchitis, Chronic Obstructive Pulmonary Disease (COPD), Tuberculosis Neurological Medical History: Denies: Migraine, Seizures Endocrine Medical History: Reports: Diabetes Mellitus Type 1, Diabetes Mellitus Type 2 Musculoskeltal Medical History: Denies: Arthritis, Gout Psychiatric Medical History: Reports: Depression Traumatic Medical History: Denies: Traumatic Brain Injury Hematology: Denies: Anemia Past Surgical History Past Surgical History: Reports: Orthopedic Surgery - left arm, collar bone Denies: Appendectomy, Section, Cholecystectomy, Coronary Artery Bypass Graft, Gastric Bypass Surgery, Herniorrhaphy, Hysterectomy, Mastectomy, Pacemaker, Tonsillectomy, Tubal Ligation Social History Smoking Status: Unknown if Ever Smoked Frequency of Alcohol Use: None Hx Recreational Drug Use: No Drugs: None Hx Prescription Drug Abuse: No Family History Family History: Reviewed & Not Pertinent Parental Family History Reviewed: No Children Family History Reviewed: No Sibling(s) Family History Reviewed.: No Medication/Allergy Home Medications: Glimepiride [Amaryl] 3 mg PO QHS 07/04/14 Simvastatin [Zocor 20 mg Tablet] 20 mg PO QHS 07/04/14 Aspirin [Aspirin EC] 81 mg PO DAILY 06/11/16 Metoprolol Succinate [Toprol Xl 50 mg Tab.sr] 25 mg PO DAILY 06/11/16 Omeprazole 20 mg PO DAILY 06/11/16 Nitroglycerin [Nitrostat 0.4 mg (1/150 Gr) Tabs 25/Bottle] 1 tab SL Q5MP PRN #2 bottle 06/12/16 Calcium Carb & Citrate/Vit D3 [Calcium + D3 ER Tablet] 1 each PO DAILY 08/17/16 Cholecalciferol (Vitamin D3) [Vitamin D3] 50,000 unit PO ASDIR PRN 08/17/16 Ibandronate Sodium [Boniva] 150 mg PO ASDIR PRN 08/17/16 Losartan Potassium [Cozaar 100 mg Tablet] 100 mg PO DAILY 08/17/16 Ferrous Sulfate [Iron] 325 mg PO DAILY 08/18/16 Allergies/Adverse Reactions: No Known Allergies Allergy (Verified 08/20/16 10:14) Physical Exam Vital Signs: Temp Pulse Resp BP Pulse Ox 97.3 F 47 L 16 140/50 H 93 08/20/16 13:10 08/20/16 13:10 08/20/16 13:10 08/20/16 13:10 08/20/16 13:10 Intake & Output 08/19/16 08/20/16 08/21/16 06:59 06:59 06:59 Intake Total 750 Balance 750 Weight 77.11 kg General appearance: PRESENT: no acute distress, cooperative Respiratory exam: PRESENT: clear to auscultation faby Cardiovascular exam: PRESENT: RRR GI/Abdominal exam: PRESENT: other - Soft, mildly distended with no significant tenderness to palpation. Extremities exam: PRESENT: +2 edema - Bilateral lower extremities. Results Impressions: Barium Enema w/ Air Contrast, therapeutic 08/20/16 13:08 IMPRESSION: Limited study due to redundant loops of colon. No annular constricting lesions or large polypoid masses. Colonic diverticulosis. Assessment & Plan - Diagnosis (1) Nausea & vomiting Qualifiers: Vomiting type: unspecified Is this a current diagnosis for this admission?: YesPlan: Postprocedure nausea. Will admit the patient for IV fluids and observation. If she feels better will advance her diet tonight. Will likely discharge patient home tomorrow.
[2016-08-20] MEDS ORDERED: GLIMEPIRIDE PO SCH (22:00)
[2016-08-20] MEDS ORDERED: SIMVASTATIN 10 MG TABLET PO SCH (22:00)
[2016-08-20] MEDS ORDERED: GLIMEPIRIDE 1 MG TABLET PO SCH (22:00)
[2016-08-21] MEDS ORDERED: ENOXAPARIN SODIUM INJ 30 MG/0.3 ML DISP.SYRIN SUBCUT SCH (08:00)
--- NOTE | 2016-08-21 08:56 | PDOC PROGRESS REPORT ---
Subjective Progress Note for:: 08/21/16 Subjective:: feels well. no dizziness. tolerating diet well. no abdominal pain Physical Exam Vital Signs: Temp Pulse Resp BP Pulse Ox 98.1 F 49 L 20 147/51 H 100 08/21/16 08:31 08/21/16 08:31 08/21/16 08:31 08/21/16 08:31 08/21/16 08:31 Intake & Output 08/20/16 08/21/16 08/22/16 06:59 06:59 06:59 Intake Total 1497 Balance 1497 Weight 77.11 kg General appearance: PRESENT: no acute distress, cooperative Respiratory exam: PRESENT: clear to auscultation faby Cardiovascular exam: PRESENT: RRR - hr 60 GI/Abdominal exam: PRESENT: other - soft, nd ntp Results Impressions: Barium Enema w/ Air Contrast, therapeutic 08/20/16 13:08 IMPRESSION: Limited study due to redundant loops of colon. No annular constricting lesions or large polypoid masses. Colonic diverticulosis. Assessment & Plan - Diagnosis (1) Nausea & vomiting Qualifiers: Vomiting type: unspecified Is this a current diagnosis for this admission?: YesPlan: resolved. pt looks good. d/c home
[2016-08-21 09:02] VITALS: BP 147/63
--- NOTE | 2016-08-21 09:08 | DISCHARGE SUMMARY E ---
Discharge Summary NAME: CECY RUIZ : 1945 AGE: 71Y ADMITTED: 08/20/2016 DISCHARGED: 08/21/2016 DISCHARGE DIAGNOSIS: Postprocedure nausea and vomiting. HOSPITAL COURSE: The patient was admitted for observation after her colonoscopy and double contrast barium enema. She had some lightheadedness and some nausea and vomiting. She did well in the hospital. She was tolerating a diet well and was feeling quite well with no further episodes of nausea or vomiting. Her abdominal exam looked good. Patient is now being discharged to home in good condition. Of note, her heart rate did run low with a heart rate around 49-56 but at the time of discharge she was asymptomatic. She is on a beta leon. Her blood pressure looked good with pressures running anywhere between 112/50 to 147/51. Patient is now being discharged to home in good condition. She will follow up with me next week. Of note, her barium enema demonstrated multiple large diverticuli of the descending and sigmoid colon, markedly redundant colon, but no suspicious lesions. This study was done after a colonoscopy due to the fact that adequate visualization was not able to be obtained due to her anatomy during the colonoscopy. The colonoscopy findings were consistent with the barium enema findings. Patient may resume all of her home medications. She may resume her home diet as well. DICTATING PHYSICIAN: ESEQUIEL BALBUENA M.D. [id number] Y#: [id number] ID: [id number] JOB#: [id number] ACCT: [id number] cc:ESEQUIEL BALBUENA M.D. >
[2016-08-21] MEDS ORDERED: ASPIRIN 81 MG TABLET, ENT COATED PO SCH (10:00)
[2016-08-21] MEDS ORDERED: FERROUS SULFATE 325 MG TABLET PO SCH (10:00)
[2016-08-21] MEDS ORDERED: METOPROLOL SUCCINATE 50 MG TAB.SR.24H PO SCH (10:00)
[2016-08-21] MEDS ORDERED: LANSOPRAZOLE 15 MG TAB.RAP.DR PO SCH (10:00)
[2016-08-21] MEDS ORDERED: (PENDING PHARMACY ID) (Calcium Carb & Citrate/Vit D3 [Calcium + D3 Er Tablet] 1 EACH) PO SCH (10:00)
[2016-08-21] MEDS ORDERED: LOSARTAN POTASSIUM 50 MG TABLET PO SCH (10:00)
[2016-08-21] MEDS ORDERED: (PENDING PHARMACY ID) (Ferrous Sulfate [Iron] 325 MG) PO SCH (10:00)
== END 2016-08-21 11:37 | disposition home or self-care (01) ==
LOC: END 09:50 → 4W 16:27
PROVIDERS: ADMIT Surgery; ATTEND Surgery
PROC: 0DJD8ZZ Inspection of Lower Intestinal Tract, Via Natural or Artificial Opening Endoscopic (ICD-10-PCS; principal; 2016-08-20 10:30)
DX: R11.2 Nausea with vomiting, unspecified (principal); K57.30 Diverticulosis of large intestine without perforation or abscess without bleeding; Z86.010 Personal history of colon polyps; I10 Essential (primary) hypertension; E11.9 Type 2 diabetes mellitus without complications
CPT/HCPCS: 45378; 82962 ×2; 74280; G0378 ×2; G0379; A9270 ×2; J2250; J3010; J3490; J2405; J0171; J1610; J2310; J2550

== ENCOUNTER 2016-12-31 07:21 | Day surgery (SDC) | payer MEDICARE ==
[~2016-12-31 07:21] MED LIST: KETOROLAC TROMETHAMINE 0.45% 4 DROP/0.4 ML DROPERETTE OS PRN; MIDAZOLAM 2 MG/2 ML INJ ONE
[2016-12-31] MEDS ORDERED: EPINEPHRINE INJ/PF 1 MG/1 ML AMPULE ONE (07:44)
[2016-12-31] MEDS ORDERED: LIDOCAINE 1% INJ-PF (10 MG/ML) 30 ML SDV ONE (07:45)
[2016-12-31] MEDS ORDERED: CHONDR SU A NA/HYALUR INTRAOC KIT (SURGICARE) ONE (07:45)
[2016-12-31] MEDS: TROPICAMIDE 1% OPH SOLN 3 ML OS PRN ×3 (07:55→08:15)
[2016-12-31] MEDS: CYCLOPENTOLATE 0.2%/PHENYLEPHRINE 1% OPH SOLN 2 ML OS PRN ×3 (07:55→08:15)
[2016-12-31] MEDS: BESIFLOXACIN HCL 0.6% OPH SUSP 5 ML BOTTLE OS PRN ×3 (07:56→09:02)
[2016-12-31] MEDS: TETRACAINE HCL 0.5% OPH SOLN 2 ML OS PRN ×3 (07:57→08:30)
[2016-12-31] MEDS ORDERED: MIDAZOLAM 2 MG/2 ML INJ ONE (08:18)
--- NOTE | 2017-01-01 12:58 | [facility] OPERATIVE REPORT E ---
[facility] Operative Report NAME: CECY RUIZ AGE: 71Y DATE OF SURGERY: 12/31/2016 ROOM: PREOPERATIVE DIAGNOSIS: CATARACT, LEFT EYE. POSTOPERATIVE DIAGNOSIS: CATARACT, LEFT EYE. OPERATION: Cataract extraction with intraocular lens implant of the left eye. SURGEON: IVETH SCHAFFER M.D. ANESTHESIA: Topical. PROCEDURE: After obtaining appropriate consent, the patient's left eye was prepped and draped in sterile fashion as well as the surgeon in a sterile manner and cataract surgery was started. First a paracentesis blade was used to make a small side-port incision. Viscoelastic was used to inflate the anterior chamber. Next a 2.4 mm incision was made with the paracentesis blade. A continuous capsulorrhexis incision was made using a cystotome and Utrata forceps. Following this hydrodissection was carried out to make the lens fully loose and mobile and it was rotated 90 degrees. Following this, a cxegbz-bto-ielnjwk technique was used to phacoemulsify the lens with a CDE of 11.19. The remaining cortex was removed with irrigation/aspiration. Provisc was instilled into the capsular bag to inflate the bag. A SN60WF, 20.0 diopter lens was placed. The remaining viscoelastic material was removed with irrigation/aspiration. Following this, a 10-0 nylon suture was used to close the incision and it was found to be watertight. Vigamox was instilled in the eye and a protective shield was placed over the eye. The patient returned to the postoperative recovery in stable condition. DICTATING PHYSICIAN: IVETH SCHAFFER M.D. 1211M [id number] PHY#: [id number] ID: [id number] JOB#: [id number] ACCT: [id number] cc:IVETH SCHAFFER M.D. >
--- NOTE | 2017-01-01 12:58 | [facility] DISCHARGE SUMMARY E ---
[facility] Discharge Summary NAME: CECY RUIZ AGE: 71Y ADMITTED: 12/31/2016 DISCHARGED: 12/31/2016 HOSPITAL COURSE: This is a 71-year-old female who underwent cataract extraction of her left eye. DIAGNOSIS: Cataract, left eye. INDICATIONS: She underwent surgery because she was having glare from headlights at night making it difficult to drive. DISCHARGE INSTRUCTIONS: She should be on a regular diet. No bending at her waist. No heavy lifting. She should use her Besivance, Ilevro, and Durezol at 3 p.m. and 8 p.m. and sleep with a rigid shield. I will see her for her 1 day postoperative tomorrow. DICTATING PHYSICIAN: IVETH SCHAFFER M.D. [id number] [id number] PHY#: [id number] ID: [id number] JOB#: [id number] ACCT: [id number] cc:IVETH SCHAFFER M.D. >
== END 2016-12-31 09:52 | disposition home or self-care (01) ==
LOC: SC 07:21
PROVIDERS: ATTEND Internal Medicine
PROC: 08RK3JZ Replacement of Left Lens with Synthetic Substitute, Percutaneous Approach (ICD-10-PCS; principal; 2016-12-31 08:30)
DX: H25.813 Combined forms of age-related cataract, bilateral (principal); E11.3291 Type 2 diabetes mellitus with mild nonproliferative diabetic retinopathy without macular edema, right eye; H04.123 Dry eye syndrome of bilateral lacrimal glands; H43.813 Vitreous degeneration, bilateral; E11.9 Type 2 diabetes mellitus without complications; I10 Essential (primary) hypertension; K21.9 Gastro-esophageal reflux disease without esophagitis; E78.00 Pure hypercholesterolemia, unspecified; G43.109 Migraine with aura, not intractable, without status migrainosus; D64.9 Anemia, unspecified; R01.1 Cardiac murmur, unspecified; Z79.82 Long term (current) use of aspirin; Z79.1 Long term (current) use of non-steroidal anti-inflammatories (NSAID); Z79.899 Other long term (current) drug therapy; Z79.84 Long term (current) use of oral hypoglycemic drugs
CPT/HCPCS: 82962; 66984; V2632; J2250; J3490 ×2; A9270; J0171; 142

== ENCOUNTER 2017-01-21 08:30 | Day surgery (SDC) | payer MEDICARE ==
[~2017-01-21 08:30] MED LIST changes: -KETOROLAC TROMETHAMINE 0.45% 4 DROP/0.4 ML DROPERETTE OS PRN; +LIDOCAINE 3.5% OPH GEL/PF 1 ML/TUBE OD PRN; -MIDAZOLAM 2 MG/2 ML INJ ONE
[2017-01-21] MEDS: CYCLOPENTOLATE 0.2%/PHENYLEPHRINE 1% OPH SOLN 2 ML OD PRN ×3 (09:13→09:33)
[2017-01-21] MEDS: TETRACAINE HCL 0.5% OPH SOLN 2 ML OD PRN ×4 (09:13→09:46)
[2017-01-21] MEDS: KETOROLAC TROMETHAMINE 0.45% 4 DROP/0.4 ML DROPERETTE OD PRN ×2 (09:13→09:14)
[2017-01-21] MEDS: TROPICAMIDE 1% OPH SOLN 3 ML OD PRN ×3 (09:13→09:33)
[2017-01-21] MEDS: BESIFLOXACIN HCL 0.6% OPH SUSP 5 ML BOTTLE OD PRN ×3 (09:14→10:08)
[2017-01-21] MEDS ORDERED: CHONDR SU A NA/HYALUR INTRAOC KIT (SURGICARE) ONE (09:24)
[2017-01-21] MEDS ORDERED: EPINEPHRINE INJ/PF 1 MG/1 ML AMPULE ONE (09:24)
[2017-01-21] MEDS ORDERED: LIDOCAINE 1% INJ-PF (10 MG/ML) 30 ML SDV ONE (09:24)
[2017-01-21] MEDS ORDERED: MIDAZOLAM 2 MG/2 ML INJ ONE (09:34)
--- NOTE | 2017-01-21 22:22 | [facility] OPERATIVE REPORT E ---
[facility] Operative Report NAME: CECY RUIZ AGE: 71Y DATE OF SURGERY: 01/21/2017 ROOM: PREOPERATIVE DIAGNOSIS: CATARACT, RIGHT EYE. POSTOPERATIVE DIAGNOSIS: CATARACT, RIGHT EYE. OPERATION: Cataract extraction with intraocular lens implant of the right eye. SURGEON: IVETH SCHAFFER M.D. ANESTHESIA: Topical. PROCEDURE: After obtaining appropriate consent, the patient's right eye was prepped and draped in sterile fashion as well as the surgeon in a sterile manner and cataract surgery was started. First a paracentesis blade was used to make a small side-port incision. Viscoelastic was used to inflate the anterior chamber. Next a 2.4 mm incision was made with the paracentesis blade. A continuous capsulorrhexis incision was made using a cystotome and Utrata forceps. Following this hydrodissection was carried out to make the lens fully loose and mobile and it was rotated 90 degrees. Following this, a lronyw-mhp-vjftshy technique was used to phacoemulsify the lens with a CDE of 8.78. The remaining cortex was removed with irrigation/aspiration. Provisc was instilled into the capsular bag to inflate the bag. A SN60WF, 19.0 diopter lens was placed. The remaining viscoelastic material was removed with irrigation/aspiration. Following this, a 10-0 nylon suture was used to close the incision and it was found to be watertight. Vigamox was instilled in the eye and a protective shield was placed over the eye. The patient returned to the postoperative recovery in stable condition. DICTATING PHYSICIAN: IVETH SCHAFFER M.D. [id number] PHY#: [id number] ID: [id number] JOB#: [id number] ACCT: [id number] cc:IVETH SCHAFFER M.D. >
--- NOTE | 2017-01-21 22:27 | DISCHARGE SUMMARY E ---
Discharge Summary NAME: CECY RUIZ : 1945 AGE: 71Y ADMITTED: 01/21/2017 DISCHARGED: This is a 71-year-old female who underwent cataract extraction of the right eye. DIAGNOSIS: Cataract, right eye. HOSPITAL COURSE: She underwent surgery because she was having difficulty reading and watching TV. DISCHARGE INSTRUCTIONS: 1. She should be on a regular diet. 2. No bending at the waist. 3. No heavy lifting. 4. She should use her Besivance, Ilevro, and Durezol at 3 p.m. and 8 p.m. and sleep with a rigid shield. 5. I will see her for her 1 day postoperative tomorrow. DICTATING PHYSICIAN: IVETH SCHAFFER M.D. [id number] Y#: [id number] ID: [id number] JOB#: [id number] ACCT: [id number] cc:IVETH SCHAFFER M.D. >
== END 2017-01-21 10:45 | disposition home or self-care (01) ==
LOC: SC 08:30
PROVIDERS: ATTEND Internal Medicine
PROC: 08RJ3JZ Replacement of Right Lens with Synthetic Substitute, Percutaneous Approach (ICD-10-PCS; principal; 2017-01-21 10:00)
DX: H25.811 Combined forms of age-related cataract, right eye (principal); Z96.1 Presence of intraocular lens; Z98.42 Cataract extraction status, left eye; I10 Essential (primary) hypertension; E11.9 Type 2 diabetes mellitus without complications; I49.9 Cardiac arrhythmia, unspecified; R01.1 Cardiac murmur, unspecified; Z79.82 Long term (current) use of aspirin; Z79.899 Other long term (current) drug therapy
CPT/HCPCS: 66984; 82962; V2632; J2250; J3490 ×2; A9270; J0171; 142

== ENCOUNTER 2017-06-04 11:32 | Emergency (ER) | payer MEDICARE, OTHER ==
[2017-06-04] MEDS ORDERED: ASPIRIN 81 MG TABLET, CHEWABLE PO ONE (13:22)
--- NOTE | 2017-06-04 13:23 | ER Document Report ---
ED Medical Screen (RME) - General Chief Complaint: Chest Pain Stated Complaint: STOMACH RIB BACK PAIN Time Seen by Provider: 06/04/17 13:18 Mode of Arrival: Ambulatory Information source: Patient Notes: 72-year-old female who is to have a stress test next few days presents with complaints of chest pain abdominal pain and the nasal infection. I have greeted and performed a rapid initial assessment of this patient. A comprehensive ED assessment and evaluation of the patient, analysis of test results and completion of the medical decision making process will be conducted by additional ED providers. PHYSICAL EXAMINATION: GENERAL: Well-appearing, well-nourished and in no acute distress. HEAD: Atraumatic, normocephalic. EYES: Pupils equal round extraocular movements intact, conjunctiva are normal. ENT: Dry scab left nostril with erythema NECK: Normal range of motion LUNGS: No respiratory distress Musculoskeletal: Normal range of motion NEUROLOGICAL: Normal speech, normal gait. PSYCH: Normal mood, normal affect. SKIN: Warm, Dry, normal turgor, no rashes or lesions noted. Inverted T waves noted similar to previous study from one year ago TRAVEL OUTSIDE OF THE [place] IN LAST 30 DAYS: No - Related Data Allergies/Adverse Reactions: kiwi Allergy (Verified 01/19/17 14:30) Facial edema and rash Home Medications: Current Home Medications Losartan Potassium [Cozaar 50 mg Tablet] 50 mg PO DAILY 06/04/17 [History] Omeprazole Magnesium [Prilosec Otc] 20 mg PO DAILY 06/04/17 [History] Past Medical History - Past Medical History Cardiac Medical History: Reports: Hx Hypercholesterolemia, Hx Hypertension Denies: Hx Atrial Fibrillation, Hx Congestive Heart Failure, Hx Coronary Artery Disease, Hx Heart Attack Pulmonary Medical History: Reports: Hx Pneumonia Denies: Hx Asthma, Hx Bronchitis, Hx COPD, Hx Tuberculosis Neurological Medical History: Denies: Hx Cerebrovascular Accident, Hx Migraine, Hx Seizures Endocrine Medical History: Reports: Hx Diabetes Mellitus Type 1, Hx Diabetes Mellitus Type 2 Renal/ Medical History: Denies: Hx Peritoneal Dialysis GI Medical History: Denies: Hx Hepatitis, Hx Hiatal Hernia, Hx Ulcer Musculoskeltal Medical History: Denies Hx Arthritis, Denies Hx Gout, Denies Hx Multiple Sclerosis, Denies Hx Muscular Dystrophy Psychiatric Medical History: Reports: Hx Depression Traumatic Medical History: Denies: Hx Traumatic Brain Injury Infectious Medical History: Denies: Hx Hepatitis Past Surgical History: Reports: Hx Bowel Surgery, Hx Breast Surgery, Hx Orthopedic Surgery - left arm, collar bone. Denies: Hx Appendectomy, Hx Section, Hx Cholecystectomy, Hx Coronary Artery Bypass Graft, Hx Gastric Bypass Surgery, Hx Herniorrhaphy, Hx Hysterectomy, Hx Mastectomy, Hx Open Heart Surgery, Hx Pacemaker, Hx Tonsillectomy, Hx Tubal Ligation - Immunizations Hx Diphtheria, Pertussis, Tetanus Vaccination: No - unsure Physical Exam - Vital signs Vitals: Temp Pulse Resp BP Pulse Ox 98.5 F 76 18 186/77 H 96 06/04/17 11:54 06/04/17 11:54 06/04/17 11:54 06/04/17 11:54 06/04/17 11:54 Course - Vital Signs Vital signs: Temp Pulse Resp BP Pulse Ox 98.5 F 76 18 186/77 H 96 06/04/17 11:54 06/04/17 11:54 06/04/17 11:54 06/04/17 11:54 06/04/17 11:54
[2017-06-04 14:07] LABS: ABSOLUTE LYMPHOCYTES (AUTO) 0.6 10^3/uL (0.5-4.7); ABSOLUTE MONOCYTES (AUTO) 0.4 10^3/uL (0.1-1.4); ABSOLUTE NEUT (AUTO) 7.7 10^3/uL (1.7-8.2); BASOPHILS % (AUTO) 0.4 % (0-2); EOSINOPHILS % (AUTO) 0.5 % (0-6); HEMATOCRIT 38.6 % (36.0-47.0); LYMPHOCYTES % (AUTO) 6.5 % (13-45); MEAN CORPUSCULAR HEMOGLOBIN 30.2 pg (27.0-33.4); MEAN CORPUSCULAR HGB CONC 33.7 g/dL (32.0-36.0); MEAN CORPUSCULAR VOLUME 90 fl (80-97); MONOCYTES % (AUTO) 4.4 % (3-13); PLATELET COUNT 194 10^3/uL (150-450); RED BLOOD COUNT 4.31 10^6/uL (3.72-5.28); RED CELL DISTRIBUTION WIDTH 13.6 % (11.5-14.0); SEGMENTED NEUTROPHILS % (AUTO) 88.2 % (42-78); TOTAL CELLS COUNTED % (AUTO) 100 %; WHITE BLOOD COUNT 8.8 10^3/uL (4.0-10.5)
--- NOTE | 2017-06-04 14:13 | RADIOLOGY REPORT (SQ) ---
EXAM DESCRIPTION: CHEST SINGLE VIEW COMPLETED DATE/TIME: 06/04/2017 2:03 pm REASON FOR STUDY: chest pain COMPARISON: 06/11/2016. EXAM PARAMETERS: NUMBER OF VIEWS: One view. TECHNIQUE: Single frontal radiographic view of the chest acquired. RADIATION DOSE: NA LIMITATIONS: None. FINDINGS: LUNGS AND PLEURA: No opacities, masses or pneumothorax. No pleural effusion. MEDIASTINUM AND HILAR STRUCTURES: No masses. Contour normal. HEART AND VASCULAR STRUCTURES: Mild cardiomegaly. Normal vasculature. BONES: No acute findings. HARDWARE: None in the chest. OTHER: No other significant finding. IMPRESSION: MILD CARDIOMEGALY. OTHERWISE NO ACUTE RADIOGRAPHIC FINDING IN THE CHEST. TECHNICAL DOCUMENTATION: JOB ID: [id number] [employer]- All Rights Reserved
[2017-06-04 14:20] LABS: ALANINE AMINOTRANSFERASE 109 U/L (9-52); ALBUMIN 4.2 g/dL (3.5-5.0); ALKALINE PHOSPHATASE 149 U/L (38-126); ANION GAP 12 (5-19); ASPARTATE AMINO TRANSFERASE 191 U/L (14-36); BILIRUBIN,DIRECT 0.6 mg/dL (0.0-0.4); BILIRUBIN,TOTAL 1.1 mg/dL (0.2-1.3); BLOOD UREA NITROGEN 15 mg/dL (7-20); CALCIUM 9.9 mg/dL (8.4-10.2); CARBON DIOXIDE 28 mmol/L (22-30); CHLORIDE 104 mmol/L (98-107); CREATINE KINASE 37 U/L (30-135); GLUCOSE 168 mg/dL (75-110); POTASSIUM 4.5 mmol/L (3.6-5.0); SODIUM 143.7 mmol/L (137-145); TOTAL PROTEIN 6.8 g/dL (6.3-8.2)
[2017-06-04 14:32] LABS: CREATINE KINASE MB 0.83 ng/mL (<4.55); TROPONIN I 0.022 ng/mL
[2017-06-04] MEDS ORDERED: ONDANSETRON HCL INJ/PF 4 MG/2 ML SDV IV ONE (14:45)
--- NOTE | 2017-06-04 14:50 | ER Document Report ---
ED General - General Chief Complaint: Chest Pain Stated Complaint: STOMACH RIB BACK PAIN Time Seen by Provider: 06/04/17 13:18 Mode of Arrival: Ambulatory Notes: The patient is a 72-year-old female, past medical history hypertension, diabetes , presents with 2 days of nausea, dysuria and right posterior rib pain. She said that she has cardiac angina symptoms for the past several months and is scheduled for a stress test in [address] Bates at [facility]. She was worried today because her right back pain would not resolve. SHe is also having redness and cracking of her left nostril after she has been wiping it multiple times this winter. She is using Neosporin cream. Patient denies vomiting, diarrhea, fevers, rash, hematuria, shortness of breath, numbness, tingling, fevers or exertional chest pain. TRAVEL OUTSIDE OF THE [place] IN LAST 30 DAYS: No - Related Data Allergies/Adverse Reactions: kiwi Allergy (Verified 01/19/17 14:30) Facial edema and rash Home Medications: Current Home Medications Losartan Potassium [Cozaar 50 mg Tablet] 50 mg PO DAILY 06/04/17 [History] Omeprazole Magnesium [Prilosec Otc] 20 mg PO DAILY 06/04/17 [History] Past Medical History - General Information source: Patient - Social History Smoking Status: Never Smoker Chew tobacco use (# tins/day): No Frequency of alcohol use: None Drug Abuse: None Family History: Reviewed & Not Pertinent Patient has suicidal ideation: No Patient has homicidal ideation: No - Past Medical History Cardiac Medical History: Reports: Hx Hypercholesterolemia, Hx Hypertension Denies: Hx Atrial Fibrillation, Hx Congestive Heart Failure, Hx Coronary Artery Disease, Hx Heart Attack Pulmonary Medical History: Reports: Hx Pneumonia Denies: Hx Asthma, Hx Bronchitis, Hx COPD, Hx Tuberculosis Neurological Medical History: Denies: Hx Cerebrovascular Accident, Hx Migraine, Hx Seizures Endocrine Medical History: Reports: Hx Diabetes Mellitus Type 1, Hx Diabetes Mellitus Type 2 Renal/ Medical History: Denies: Hx Peritoneal Dialysis GI Medical History: Denies: Hx Hepatitis, Hx Hiatal Hernia, Hx Ulcer Musculoskeltal Medical History: Denies Hx Arthritis, Denies Hx Gout, Denies Hx Multiple Sclerosis, Denies Hx Muscular Dystrophy Psychiatric Medical History: Reports: Hx Depression Traumatic Medical History: Denies: Hx Traumatic Brain Injury Infectious Medical History: Denies: Hx Hepatitis Past Surgical History: Reports: Hx Bowel Surgery, Hx Breast Surgery, Hx Orthopedic Surgery - left arm, collar bone. Denies: Hx Appendectomy, Hx Section, Hx Cholecystectomy, Hx Coronary Artery Bypass Graft, Hx Gastric Bypass Surgery, Hx Herniorrhaphy, Hx Hysterectomy, Hx Mastectomy, Hx Open Heart Surgery, Hx Pacemaker, Hx Tonsillectomy, Hx Tubal Ligation - Immunizations Hx Diphtheria, Pertussis, Tetanus Vaccination: No - unsure Hx Pneumococcal Vaccination: 03/31/11 Review of Systems - Review of Systems Notes: REVIEW OF SYSTEMS: CONSTITUTIONAL: -fevers, -chills EENT: -eye pain, -difficulty swallowing, -nasal congestion CARDIOVASCULAR: +chest pain, -syncope. RESPIRATORY: -cough, -SOB GASTROINTESTINAL: -abdominal pain, +nausea, -vomiting, -diarrhea GENITOURINARY: +dysuria, -hematuria MUSCULOSKELETAL: +back pain, -neck pain SKIN: -rash or skin lesions. HEMATOLOGIC: -easy bruising or bleeding. LYMPHATIC: -swollen, enlarged glands. NEUROLOGICAL: -altered mental status or loss of consciousness, -headache, - neurologic symptoms PSYCHIATRIC: -anxiety, -depression. ALL OTHER SYSTEMS REVIEWED AND NEGATIVE. Physical Exam - Vital signs Vitals: Temp Pulse Resp BP Pulse Ox 98.5 F 76 18 186/77 H 96 06/04/17 11:54 06/04/17 11:54 06/04/17 11:54 06/04/17 11:54 06/04/17 11:54 - Notes Notes: PHYSICAL EXAMINATION: GENERAL: Well-appearing, well-nourished and in no acute distress. HEAD: Atraumatic, normocephalic. EYES: Pupils equal round and reactive to light, extraocular movements intact, sclera anicteric, conjunctiva are normal. ENT: nares patent, oropharynx clear without exudates. Moist mucous membranes. Mild erythema and dried skin at distal tip of left nostril. NECK: Normal range of motion, supple without lymphadenopathy LUNGS: Breath sounds clear to auscultation bilaterally and equal. No wheezes rales or rhonchi. HEART: Regular rate and rhythm without murmurs ABDOMEN: Soft, nontender, normoactive bowel sounds. No guarding, no rebound. No masses appreciated. EXTREMITIES: Normal range of motion, no pitting or edema. No cyanosis. NEUROLOGICAL: Cranial nerves grossly intact. Normal speech, normal gait. Normal sensory and motor exams. PSYCH: Normal mood, normal affect. SKIN: Warm, Dry, normal turgor, no rashes or lesions noted. Course - Re-evaluation Re-evalutation: Patient's chest pain is ongoing for several months and she has a stress test scheduled in [place] in 3 days. EKGs did not show any acute changes and 2 sets of troponins are also negative. Patient with right flank pain and no acute changes on CT scan other than marked constipation. She has LFT elevation and right upper quadrant ultrasound ordered, which showed GB sludge and mild distention. No RUQ tenderness and negative Taurus's sign. On final reevaluation, patient feels much better and is having no symptoms at this time. Instructed her to follow-up with her primary care physician for further evaluation and treatment. Also provided her with GI and surgery follow-up with very strict return precautions, especially about cholecystitis. Told her that she must follow-up for her stress test and to return at any time. - Vital Signs Vital signs: Temp Pulse Resp BP Pulse Ox 98.5 F 76 27 H 144/50 H 94 06/04/17 11:54 06/04/17 11:54 06/04/17 18:01 06/04/17 18:01 06/04/17 18:01 - Laboratory Result Diagrams: 06/04/17 13:39 06/04/17 13:39 Laboratory results interpreted by me: 06/04/17 06/04/17 06/04/17 13:39 13:39 15:23 Seg Neutrophils % 88.2 H Lymphocytes % 6.5 L Est GFR (Non-Af Amer) 56 L Glucose 168 H Direct Bilirubin 0.6 H AST 191 H ALT 109 H Alkaline Phosphatase 149 H Urine Protein 30 H Urine Glucose (UA) 50 H Urine Blood MODERATE H Urine Urobilinogen 4.0 H - Diagnostic Test Radiology reviewed: Image reviewed, Reports reviewed Radiology results interpreted by me: CT A/P: marked constipation, no other acute findings RUQ US: GB sludge, mild distention, no stones or CBD dilation - EKG Interpretation by Me EKG shows normal: Sinus rhythm, [place], Intervals, QRS Complexes When compared to previous EKG there are: No significant change Additional EKG results interpreted by me: Old T-wave changes in anterior leads Discharge - Discharge Clinical Impression: Flank pain, Elevated LFTs Hematuria Qualifiers: Hematuria type: unspecified type Qualified Code(s): R31.9 - Hematuria, unspecified Chest pain Qualifiers: Chest pain type: unspecified Qualified Code(s): R07.9 - Chest pain, unspecified Condition: Stable Disposition: HOME, SELF-CARE Additional Instructions: Follow-up with your product support representative for further evaluation and treatment of your chest pain as scheduled this week. Your liver blood tests are also elevated today and your ultrasound shows possible gallbladder sludge, but no evidence of acute gallbladder infection. Eat a low-fat diet and return to the ER if you have worsening pain. Continue to stay hydrated and return to the ER if you have any new concerns. CHEST PAIN OF UNCLEAR CAUSE: The exact cause of your chest pain isn't clear. Fortunately, there is no evidence of a dangerous medical condition. Further testing may be required to find the source of the pain. Most often, we find that this pain is coming from the chest wall -- the muscles or rib joints in the chest. But chest pain can come from the lung and lung lining, the esophagus, the heart valves or heart lining, and even the stomach or gallbladder. Rest. Eat lightly until the pain is gone. We may prescribe medicine for pain and inflammation. You should call the physician immediately if the pain radiates to the shoulder, jaw or arms; if you start to run a fever or develop a cough; or if you develop shortness of breath, or other new or alarming symptoms. NORMAL EXAM AND WORKUP: At this time, your examination and workup show no significant abnormality. No significant abnormal physical findings were noted. All laboratory, EKG, and imaging (x-ray, CT scans, ultrasound) studies that were ordered show no significant abnormality. Although your examination and all studies that were ordered showed no significant abnormal finding, there are no examinations and no studies that are 100% accurate. There is always the possibility that some abnormality could exist and not be detected with physical examination or within the limits and capabilities of laboratory and other studies. You should return or follow up as you were instructed on your visit today for further evaluation if your symptoms do not resolve. CHEST WALL PAIN: Your chest pain may be coming from the chest wall. This is often caused by straining the muscles or joints in the chest during physical activity, direct trauma, coughing, or vigorous vomiting. Persons with arthritis are especially prone to this type of pain, due to inflammation of the cartilage joints near the breast bone. Occasionally, no cause can be found. Rest from strenuous physical activity. This kind of chest pain is usually made worse by movement of the chest. Depending on the symptoms, we may prescribe medicine for pain, muscle relaxation, and antiinflammatory effects. If the pain is new, and seems to be due to muscle strain, cold packs can help. Otherwise, apply gentle warmth to the painful area for 15 minutes every hour or two. You should call contact the doctor immediately if things change. Further evaluation is needed if you develop a fever or cough, if the nature of the pain changes, or if you become short of breath. ANGINA EPISODE: Your physician has diagnosed the pain you experienced as an episode of angina. Angina occurs when a portion of the heart muscle temporarily lacks oxygen. It does not cause any permanent heart damage, but serves as a warning. Hospitalization is not necessary now. Evaluation of your cardiac condition , and medical therapy for angina will be necessary. It's important you be sure to keep all appointments and take medication exactly as prescribed. Angina is usually treated with a type of "nitrate" medication. This is available as ointment, pills, or sublingual (under the tongue) tablets. Depending on your clinical situation, other medications may be added to help control angina. These may include beta blockers or calcium blockers. If episodes of angina are occurring with increased frequency, or if chest pain lasts longer than 15 minutes or does not respond to nitroglycerin, you must seek emergency medical care immediately. ASPIRIN: Aspirin has been shown to have a beneficial effect on blood circulation by reducing the clotting effect of platelets in the blood. These beneficial effects can be achieved by taking just a single baby (81 mg) aspirin a day. It is recommended that any person over the age of forty take a single baby aspirin every day for heart and brain circulation, unless you are allergic to aspirin or have some significant bleeding disorder. It is strongly recommended that people who have proven cardiac or blood circulation disturbances should take a baby aspirin every day. NITRATES: Nitroglycerin and related longer-acting nitrate medications are used to prevent or treat attacks of angina. These medicines dilate blood vessels, decreasing the work of the heart, and improving its supply of oxygen. Many different forms are available, including sublingual tablets (used under the tongue), sprays, skin patches, and long-acting pills. If the particular form of medication you have been given is not working well for you, contact your doctor. Long-acting forms: Take exactly as prescribed. Sudden stopping of medication can provoke increased attacks. Sublingual tabs or spray: A headache will usually occur with use. Sit or lie while waiting for the pain to go away. If angina doesn't respond to three doses (five minutes apart), call for emergency assistance. FOLLOW-UP CARE: If you have been referred to a physician for follow-up care, call the physician s office for an appointment as you were instructed or within the next two days. If you experience worsening or a significant change in your symptoms, notify the physician immediately or return to the Emergency Department at any time for re-evaluation. Flank Pain We weren't able to prove an exact cause for your flank pain. Pain in the flank can be caused by a muscle strain or spasm. Sometimes a kidney stone causes pain, but can't be found on our tests. Infection in the kidney should be evident on a urine test. Early shingles can occasionally cause flank pain, without the rash that proves the diagnosis. On rare occasions, disease of the pancreas, aorta, spleen, or colon can create pain in the flank. At this time, there's no evidence of a dangerous condition, and it seems safe for you to be at home. If the pain goes away and does not come back, no further testing will be needed. If pain persists, or becomes more severe, we may need to repeat some tests or order additional new testing. Blood in the urine, urgency to urinate frequently, and pain that radiates to the groin can indicate a kidney stone. Fever may mean that the pain is due to infection, either of the kidney or the colon (diverticulitis). If your pain is early shingles, you should develop an eruption of blisters in the painful area within a few days. Call the doctor or return if you have pain that is spreading or becoming more severe, pain that does not resolve with time, fever, or any other new symptoms. Forms: Elevated Blood Pressure Referrals: LAY RODRIGUEZ MD [GERONTOLOGY AIDE] - Follow up as needed PATRICIO BERGER MD [ACTIVE STAFF] - Follow up as needed
[2017-06-04 15:47] LABS: APPEARANCE,URINE CLEAR; BILIRUBIN,URINE NEGATIVE (NEGATIVE); COLOR,URINE YELLOW; GLUCOSE, URINE 50 mg/dL (NEGATIVE); KETONES,URINE NEGATIVE (NEGATIVE); LEUKOCYTE ESTERASE,URINE NEGATIVE (NEGATIVE); NITRITE,URINE NEGATIVE (NEGATIVE); PROTEIN,URINE 30 mg/dL (NEGATIVE); URINE SPECIFIC GRAVITY 1.012
--- NOTE | 2017-06-04 16:14 | RADIOLOGY REPORT (SQ) ---
EXAM DESCRIPTION: U/S ABDOMEN LIMITED W/O DOP COMPLETED DATE/TIME: 06/04/2017 3:56 pm REASON FOR STUDY: elevated LFTs, RUQ tenderness COMPARISON: None. TECHNIQUE: Dynamic and static grayscale images acquired of the abdomen and recorded on PACS. Additio nal selected color Doppler and spectral images recorded. LIMITATIONS: None. FINDINGS: PANCREAS: No masses. Visualized pancreatic duct normal caliber. LIVER: No masses. Echotexture normal. LIVER VASCULATURE: Normal directional flow of the main portal vein and hepatic veins. GALLBLADDER: Mildly distended. Mild sludge. ULTRASOUND-DETECTED ANDERSEN'S SIGN: Negative. INTRAHEPATIC DUCTS AND COMMON DUCT: CBD and intrahepatic ducts normal caliber. No filling defects. INFERIOR VENA CAVA: Normal flow. AORTA: No aneurysm. RIGHT KIDNEY: Normal size. Normal echogenicity. No solid or suspicious masses. No hydronephrosis. No calcifications. PERITONEAL AND RIGHT PLEURAL SPACE: No ascites or effusions. OTHER: No other significant findings. IMPRESSION: Mildly distended gallbladder with sludge. TECHNICAL DOCUMENTATION: JOB ID: [id number] [employer]- All Rights Reserved
--- NOTE | 2017-06-04 16:30 | RADIOLOGY REPORT (SQ) ---
EXAM DESCRIPTION: CT LTD RENAL STONE PROTOCOL ON COMPLETED DATE/TIME: 06/04/2017 4:19 pm REASON FOR STUDY: right flank pain, hematuria COMPARISON: 12/18/2013 TECHNIQUE: CT scan of the abdomen and pelvis performed without intravenous or oral contrast. Images reviewed with lung, soft tissue, and bone windows. Reconstructed coronal and sagittal MPR images revi ewed. All images stored on PACS. All CT scanners at this facility use dose modulation, iterative reconstruction, and/or weight based d osing when appropriate to reduce radiation dose to as low as reasonably achievable (ALARA). [facility]: Dose Right [facility]: CareDose [facility]: Dose Right [facility]: Teradose 4D [facility]: Smart Vestiage RADIATION DOSE: CT Rad equipment meets quality standard of care and radiation dose reduction techniq ues were employed. CTDIvol: 9.5 mGy. DLP: 501 mGy-cm.mGy. LIMITATIONS: Beam hardening artifact from prior oral contrast in the colon. FINDINGS: LOWER CHEST: No significant findings. No nodules or infiltrates. NON-CONTRASTED LIVER, SPLEEN, ADRENALS: Evaluation limited by lack of IV contrast. No identified sign ificant masses. PANCREAS: No masses. No peripancreatic inflammatory changes. GALLBLADDER: No identified stones by CT criteria. No inflammatory changes to suggest cholecystitis. RIGHT KIDNEY AND URETER: No suspicious masses. Assessment limited by lack of IV contrast. No signif icant calcifications. No hydronephrosis or hydroureter. LEFT KIDNEY AND URETER: No suspicious masses. Assessment limited by lack of IV contrast. No signifi cant calcifications. No hydronephrosis or hydroureter. AORTA AND RETROPERITONEUM: No aneurysm. No retroperitoneal masses or adenopathy. BOWEL AND PERITONEAL CAVITY: No obvious masses or inflammatory changes. No free fluid. Marked consti pation. APPENDIX: Normal PELVIS, BLADDER, AND ABDOMINAL WALL:No abnormal masses. No free fluid. Bladder normal. BONES: L3-4 degenerative disc. OTHER: No other significant finding. IMPRESSION: NO SIGNIFICANT OR ACUTE PROCESS IN THE ABDOMEN OR PELVIS. Marked constipation. COMMENT: Quality ID # [id number]: Final reports with documentation of one or more dose reduction techniques (e.g., Automated exposure control, adjustment of the mA and/or kV according to patient size, use of iterative reconstruction technique) TECHNICAL DOCUMENTATION: JOB ID: [id number]- All Rights Reserved
[2017-06-04 18:38] VITALS: BP 144/50
--- NOTE | 2017-06-05 11:36 | EKG REPORT ---
SEVERITY:- ABNORMAL ECG - SINUS RHYTHM BORDERLINE LEFT AXIS DEVIATION CONSIDER ANTERIOR INFARCT ABNORMAL T, CONSIDER ISCHEMIA, ANT-LAT LEADS : Confirmed by: Yomi Diallo 05-Jun-2017 11:36:04
--- NOTE | 2017-06-05 11:37 | EKG REPORT ---
SEVERITY:- ABNORMAL ECG - SINUS RHYTHM LEFT AXIS DEVIATION ABNORMAL T, CONSIDER ISCHEMIA, ANTERIOR LEADS : Confirmed by: Yomi Diallo 05-Jun-2017 11:36:31
[2017-06-06 07:38] LABS: HEPATITIS A AB IGM Negative (Negative); HEPATITIS B CORE AB IGM Negative (Negative); HEPATITS B SURFACE ANTIGEN Negative (Negative)
[2017-06-06 08:16] LABS: HEPATITIS C VIRUS ANTIBODY 0.1 s/co ratio (0.0-0.9)
== END 2017-06-04 19:34 | disposition home or self-care (01) ==
LOC: ER 11:32
DX: R07.9 Chest pain, unspecified (principal); R31.9 Hematuria, unspecified; R10.9 Unspecified abdominal pain; R79.89 Other specified abnormal findings of blood chemistry; R07.81 Pleurodynia; M54.9 Dorsalgia, unspecified; I10 Essential (primary) hypertension; E11.9 Type 2 diabetes mellitus without complications; R11.0 Nausea; R30.0 Dysuria; Z79.899 Other long term (current) drug therapy
CPT/HCPCS: 93005; 99285; 96374; 36415; 82553; 82550; 83690; 85025; 80053; 81001; 84484; 80074; 71045; 76705; 76380; 93010; J2405

== ENCOUNTER 2017-07-03 12:00 | Emergency (ER) | payer OTHER ==
[2017-07-03] MEDS ORDERED: ONDANSETRON 4 MG TAB.RAPDIS PO ONE (12:21)
[2017-07-03] MEDS ORDERED: NORMAL SALINE 500 ML IV ONE (12:22)
--- NOTE | 2017-07-03 12:43 | ER Document Report ---
ED Medical Screen (RME) - General Chief Complaint: Flu Symptoms Stated Complaint: VOMITING Time Seen by Provider: 07/03/17 12:21 Mode of Arrival: Ambulatory Information source: Patient TRAVEL OUTSIDE OF THE [place] IN LAST 30 DAYS: No - HPI Patient complains to provider of: vomiting Notes: 07/03/17 12:43 Vomiting this morning several times and unable to keep anything down. She is lightheaded. She states she did not have any fevers she did get the flu shot. She does have a monitor and storage bin tender she has been wearing for 30 days. History of diabetes, hypercholesterolemia, hypertension and wears CPAP at night. 07/03/17 12:44 07/03/17 12:45 I have greeted and performed a rapid initial assessment of this patient. A comprehensive ED assessment and evaluation of the patient, analysis of test results and completion of the medical decision making process will be conducted by additional ED providers. PHYSICAL EXAMINATION: GENERAL:ill appearing, well-nourished and in no acute distress. HEAD: Atraumatic, normocephalic. EYES: Pupils equal round extraocular movements intact, conjunctiva are normal. ENT: Nares patent NECK: Normal range of motion LUNGS: No respiratory distress lungs clear to auscultation bilaterally Musculoskeletal: Normal range of motion NEUROLOGICAL: Normal speech, normal gait. PSYCH: Normal mood, normal affect. SKIN: Warm, Dry, normal turgor, no rashes or lesions noted. - Related Data Allergies/Adverse Reactions: kiwi Allergy (Verified 07/03/17 12:02) Facial edema and rash Past Medical History - Social History Chew tobacco use (# tins/day): No Frequency of alcohol use: Rare Drug Abuse: None - Past Medical History Cardiac Medical History: Reports: Hx Hypercholesterolemia, Hx Hypertension Denies: Hx Atrial Fibrillation, Hx Congestive Heart Failure, Hx Coronary Artery Disease, Hx Heart Attack Pulmonary Medical History: Reports: Hx Pneumonia Denies: Hx Asthma, Hx Bronchitis, Hx COPD, Hx Tuberculosis Neurological Medical History: Denies: Hx Cerebrovascular Accident, Hx Migraine, Hx Seizures Endocrine Medical History: Reports: Hx Diabetes Mellitus Type 1, Hx Diabetes Mellitus Type 2 Renal/ Medical History: Denies: Hx Peritoneal Dialysis GI Medical History: Denies: Hx Hepatitis, Hx Hiatal Hernia, Hx Ulcer Musculoskeltal Medical History: Denies Hx Arthritis, Denies Hx Gout, Denies Hx Multiple Sclerosis, Denies Hx Muscular Dystrophy Psychiatric Medical History: Reports: Hx Depression Traumatic Medical History: Denies: Hx Traumatic Brain Injury Infectious Medical History: Denies: Hx Hepatitis Past Surgical History: Reports: Hx Bowel Surgery, Hx Breast Surgery, Hx Orthopedic Surgery - left arm, collar bone. Denies: Hx Appendectomy, Hx Section, Hx Cholecystectomy, Hx Coronary Artery Bypass Graft, Hx Gastric Bypass Surgery, Hx Herniorrhaphy, Hx Hysterectomy, Hx Mastectomy, Hx Open Heart Surgery, Hx Pacemaker, Hx Tonsillectomy, Hx Tubal Ligation - Immunizations Hx Diphtheria, Pertussis, Tetanus Vaccination: No - unsure Physical Exam - Vital signs Vitals: Temp Pulse Resp BP Pulse Ox 97.9 F 83 16 144/70 H 97 07/03/17 12:10 07/03/17 12:10 07/03/17 12:10 07/03/17 12:10 07/03/17 12:10 Course - Vital Signs Vital signs: Temp Pulse Resp BP Pulse Ox 97.9 F 83 16 144/70 H 97 07/03/17 12:10 07/03/17 12:10 07/03/17 12:10 07/03/17 12:10 07/03/17 12:10
[2017-07-03 12:55] LABS: ABSOLUTE EOSINOPHILS # (AUTO) 0.1 10^3/uL (0.0-0.6); ABSOLUTE LYMPHOCYTES (AUTO) 0.4 10^3/uL (0.5-4.7); ABSOLUTE MONOCYTES (AUTO) 0.2 10^3/uL (0.1-1.4); ABSOLUTE NEUT (AUTO) 6.8 10^3/uL (1.7-8.2); BASOPHILS % (AUTO) 0.2 % (0-2); EOSINOPHILS % (AUTO) 1.1 % (0-6); HEMOGLOBIN 13.7 g/dL (12.0-15.5); LYMPHOCYTES % (AUTO) 5.4 % (13-45); MEAN CORPUSCULAR HEMOGLOBIN 30.6 pg (27.0-33.4); MEAN CORPUSCULAR HGB CONC 34.2 g/dL (32.0-36.0); MEAN CORPUSCULAR VOLUME 89 fl (80-97); MONOCYTES % (AUTO) 2.9 % (3-13); PLATELET COUNT 193 10^3/uL (150-450); RED BLOOD COUNT 4.48 10^6/uL (3.72-5.28); RED CELL DISTRIBUTION WIDTH 13.5 % (11.5-14.0); SEGMENTED NEUTROPHILS % (AUTO) 90.4 % (42-78); TOTAL CELLS COUNTED % (AUTO) 100 %; WHITE BLOOD COUNT 7.6 10^3/uL (4.0-10.5)
[2017-07-03 13:13] LABS: ALANINE AMINOTRANSFERASE 21 U/L (9-52); ALBUMIN 4.4 g/dL (3.5-5.0); ALKALINE PHOSPHATASE 100 U/L (38-126); ANION GAP 13 (5-19); ASPARTATE AMINO TRANSFERASE 18 U/L (14-36); BILIRUBIN,DIRECT 0.2 mg/dL (0.0-0.4); BILIRUBIN,TOTAL 0.7 mg/dL (0.2-1.3); BLOOD UREA NITROGEN 16 mg/dL (7-20); CALCIUM 9.4 mg/dL (8.4-10.2); CARBON DIOXIDE 27 mmol/L (22-30); CHLORIDE 103 mmol/L (98-107); GLUCOSE 219 mg/dL (75-110); POTASSIUM 4.5 mmol/L (3.6-5.0); SODIUM 143.4 mmol/L (137-145)
[2017-07-03 13:27] LABS: A TYPE INFLUENZA AG NEGATIVE (NEGATIVE); B INFLUENZA AG NEGATIVE (NEGATIVE)
--- NOTE | 2017-07-03 13:36 | ER Document Report ---
ED General - General Chief Complaint: Flu Symptoms Stated Complaint: VOMITING Time Seen by Provider: 07/03/17 12:21 Mode of Arrival: Ambulatory Information source: Patient Notes: Patient is a 72-year-old female who presents today with the onset around 2:45 in the morning of multiple episodes of nonbilious nonbloody vomiting. She denies any diarrhea, abdominal pain, fevers, body aches, or congestion. Patient is wearing a heart monitor to check for some intermittent palpitations. She denies any palpitations today. Patient does state only on review of systems that she had to 1-2 second transient episodes of some left chest "pressure" in between the vomiting episodes. TRAVEL OUTSIDE OF THE [place] IN LAST 30 DAYS: No - HPI Onset: Other - See above Onset/Duration: Gradual Quality of pain: Other - See above Severity: Moderate Pain Level: Denies Associated symptoms: Other - See above Exacerbated by: Denies Relieved by: Denies Similar symptoms previously: No Recently seen / treated by doctor: Yes - Related Data Allergies/Adverse Reactions: kiwi Allergy (Verified 07/03/17 12:02) Facial edema and rash Past Medical History - General Information source: Patient - Social History Smoking Status: Never Smoker Cigarette use (# per day): No Chew tobacco use (# tins/day): No Smoking Education Provided: No Frequency of alcohol use: Rare Drug Abuse: None Family History: Reviewed & Not Pertinent Patient has suicidal ideation: No Patient has homicidal ideation: No - Past Medical History Cardiac Medical History: Reports: Hx Hypercholesterolemia, Hx Hypertension Denies: Hx Atrial Fibrillation, Hx Congestive Heart Failure, Hx Coronary Artery Disease, Hx Heart Attack Pulmonary Medical History: Reports: Hx Pneumonia Denies: Hx Asthma, Hx Bronchitis, Hx COPD, Hx Tuberculosis Neurological Medical History: Denies: Hx Cerebrovascular Accident, Hx Migraine, Hx Seizures Endocrine Medical History: Reports: Hx Diabetes Mellitus Type 1, Hx Diabetes Mellitus Type 2 Renal/ Medical History: Denies: Hx Peritoneal Dialysis GI Medical History: Denies: Hx Hepatitis, Hx Hiatal Hernia, Hx Ulcer Musculoskeltal Medical History: Denies Hx Arthritis, Denies Hx Gout, Denies Hx Multiple Sclerosis, Denies Hx Muscular Dystrophy Psychiatric Medical History: Reports: Hx Depression Traumatic Medical History: Denies: Hx Traumatic Brain Injury Infectious Medical History: Denies: Hx Hepatitis Past Surgical History: Reports: Hx Bowel Surgery, Hx Breast Surgery, Hx Orthopedic Surgery - left arm, collar bone. Denies: Hx Appendectomy, Hx Section, Hx Cholecystectomy, Hx Coronary Artery Bypass Graft, Hx Gastric Bypass Surgery, Hx Herniorrhaphy, Hx Hysterectomy, Hx Mastectomy, Hx Open Heart Surgery, Hx Pacemaker, Hx Tonsillectomy, Hx Tubal Ligation - Immunizations Hx Diphtheria, Pertussis, Tetanus Vaccination: No - unsure Hx Pneumococcal Vaccination: 03/31/11 Review of Systems - Review of Systems Constitutional: denies: Fever EENT: denies: Eye discharge, Nose discharge Cardiovascular: denies: Palpitations Respiratory: denies: Short of breath Gastrointestinal: Vomiting. denies: Abdomen distended, Diarrhea Genitourinary: denies: Dysuria Musculoskeletal: denies: Leg swelling Skin: Other - no hives. denies: Rash Neurological/Psychological: Other - no slurred speech -: Yes All other systems reviewed and negative Physical Exam - Vital signs Vitals: Temp Pulse Resp BP Pulse Ox 97.9 F 83 16 144/70 H 97 07/03/17 12:10 07/03/17 12:10 07/03/17 12:10 07/03/17 12:10 07/03/17 12:10 Notes: Reviewed vital signs and nursing note as charted by RN. CONSTITUTIONAL: Alert and oriented and responds appropriately to questions. Well -appearing; well-nourished HEAD: Normocephalic; atraumatic EYES: PERRL CARD: Regular rate and rhythm; 4 out of 6 holosystolic murmur heard best at the left sternal apex RESP: Normal chest excursion without splinting or tachypnea; breath sounds clear and equal bilaterally; no wheezes, no rhonchi, no rales ABD/GI: Normal bowel sounds; non-distended; soft, non-tender to deep palpation of all 4 quadrants of the abdomen. No palpable masses or abdominal bruits BACK: The back appears normal and is non-tender to palpation, there is no CVA tenderness EXT: Normal ROM in all joints; non-tender to palpation; no edema SKIN: No acute lesions noted NEURO: Moves all extremities equally; Motor and sensory function intact PSYCH: The patient's mood and manner are appropriate. Grooming and personal hygiene are appropriate. Course - Re-evaluation Re-evalutation: 07/03/17 13:36 Given the above history and physical examination we will obtain basic labs, and EKG, troponin, provide fluids and Zofran, and reassess. Patient currently has no chest or abdominal pain. Patient currently is afebrile. is concerned because the patient ate [place] food last evening and he is worried about possible food poisoning. EKG shows a heart of 76, normal sinus rhythm, left axis deviation, minimal LVH, inverted T waves in leads V2 and V3 as well as 3, no obvious ST elevation or depression 07/03/17 15:02 Labs as recorded. Patient still denies any abdominal pain. Feels "much better ". X-ray of the abdomen is recorded showing widespread stool without any obvious air-fluid levels or signs of bowel obstruction. Initial troponin is unremarkable. 07/03/17 17:57 Repeat troponin as recorded. Patient still denies any tenderness to the abdomen. She denies any chest pain at this time. 2 troponins are unremarkable. EKG as recorded above. Patient has no tenderness to repeat abdominal examination. Given the above history, physical, repeat labs, no vomiting here at this facility, vital signs stable, I believe is reasonable to discharge the patient home at this time with strict return precautions and follow-up. - Vital Signs Vital signs: Temp Pulse Resp BP Pulse Ox 98.9 F 63 18 119/48 L 96 07/03/17 16:37 07/03/17 16:37 07/03/17 16:37 07/03/17 16:37 07/03/17 16:37 - Laboratory Result Diagrams: 07/03/17 12:43 07/03/17 12:43 Laboratory results interpreted by me: 07/03/17 07/03/17 12:43 12:43 Seg Neutrophils % 90.4 H Lymphocytes % 5.4 L Monocytes % 2.9 L Absolute Lymphocytes 0.4 L Est GFR (Non-Af Amer) 54 L Glucose 219 H Discharge - Discharge Clinical Impression: Vomiting Qualifiers: Vomiting type: unspecified Vomiting Intractability: non-intractable Nausea presence: with nausea Qualified Code(s): R11.2 - Nausea with vomiting, unspecified Chest pain Qualifiers: Chest pain type: unspecified Qualified Code(s): R07.9 - Chest pain, unspecified Condition: Good Disposition: HOME, SELF-CARE Additional Instructions: Come back immediately with any repeat episodes of vomiting, any and all chest discomfort, abdominal pain or discomfort, fevers, shortness of breath, or any other acute problems. Please make sure that you follow-up with your primary care physician as we have discussed Prescriptions: Ondansetron [Zofran Odt 4 mg Tablet] 1 tab PO Q6H #15 tab.rapdis Referrals: RONEN VILLASEÑOR PA-C [Primary Care Provider] - Follow up as needed
[2017-07-03] MEDS ORDERED: ONDANSETRON HCL INJ/PF 4 MG/2 ML SDV IV ONE (13:44)
--- NOTE | 2017-07-03 14:40 | RADIOLOGY REPORT (SQ) ---
EXAM DESCRIPTION: ACUTE ABDOMEN SERIES COMPLETED DATE/TIME: 07/03/2017 2:30 pm REASON FOR STUDY: 19, vomiting COMPARISON: None. NUMBER OF VIEWS: Three views. TECHNIQUE: Frontal chest, supine abdomen and upright/decubitus abdomen radiographic images acquired. LIMITATIONS: None. FINDINGS: CHEST: Chronic interstitial changes. FREE AIR: None. No abnormal gas collections. BOWEL GAS PATTERN: Abundant fecal material throughout the colon. Diverticula in the sigmoid colon. CALCIFICATIONS: No suspicious calcifications. HARDWARE: None in the abdomen. SOFT TISSUES: No gross mass or suggestion of organomegaly. BONES: No acute fracture. No worrisome bone lesions. OTHER: No other significant finding. IMPRESSION: Fecal retention. Diverticulosis. TECHNICAL DOCUMENTATION: JOB ID: [id number] [facility]- All Rights Reserved
--- NOTE | 2017-07-03 17:31 | EKG REPORT ---
SEVERITY:- ABNORMAL ECG - SINUS RHYTHM LEFT AXIS DEVIATION = LAFB LEFT VENTRICULAR HYPERTROPHY VS OLD ANTERIOR MO, CLINICAL CORRELATION NEEDED. ABNORMAL T, CONSIDER ISCHEMIA, ANTERIOR LEADS : Confirmed by: Compa Richardson MD 03-Jul-2017 17:31:00
[2017-07-03] MEDS ORDERED: ASPIRIN 325 MG TABLET PO ONE (19:06)
[2017-07-03] MEDS ORDERED: LIDOCAINE 2% VISCOUS SOLN 20 ML UDCUP PO ONE (19:07)
[2017-07-03] MEDS ORDERED: MAG HYDROX/AL HYDROX/SIMETH SUSP 30 ML UDCUP PO ONE (19:07)
[2017-07-03] MEDS ORDERED: METOCLOPRAMIDE HCL ORAL SOLN 10 MG/10 ML UDCUP PO ONE (19:07)
[2017-07-03 19:48] VITALS: BP 116/51
--- NOTE | 2017-07-04 08:31 | EKG REPORT ---
SEVERITY:- ABNORMAL ECG - SINUS RHYTHM FIRST DEGREE AV BLOCK LEFT AXIS DEVIATION ABNORMAL T, CONSIDER ISCHEMIA, ANTERIOR AND INFERIOR LEADS , MIN. SENIOR CONSULTANT TIME FROM 2014 : Confirmed by: Compa Richardson MD 04-Jul-2017 08:31:19
== END 2017-07-03 19:42 | disposition home or self-care (01) ==
LOC: ER 12:00
DX: R11.2 Nausea with vomiting, unspecified (principal); R07.9 Chest pain, unspecified; E78.00 Pure hypercholesterolemia, unspecified; I10 Essential (primary) hypertension; E11.9 Type 2 diabetes mellitus without complications
CPT/HCPCS: 93005; 99284; 96361; 96374; 36415; 85025; 80053; 84484; 87804; 74022; 93010; A9270 ×3; J3490; J2405; J7040; S0119

== ENCOUNTER 2017-07-05 07:47 | Emergency (ER) | payer OTHER ==
[2017-07-05] MEDS ORDERED: ONDANSETRON HCL INJ/PF 4 MG/2 ML SDV IV ONE (08:02)
[2017-07-05] MEDS ORDERED: NORMAL SALINE 1000 ML 1,000 ML IV ONE (08:02)
--- NOTE | 2017-07-05 08:10 | ER Document Report ---
ED General Pain - General Stated Complaint: BLOOD SUGAR PROBLEM Time Seen by Provider: 07/05/17 08:01 TRAVEL OUTSIDE OF THE [place] IN LAST 30 DAYS: No - HPI Patient complains to provider of: hypoglycemia Notes: Elderly diabetic female presents with episode of hypoglycemia this morning and altered mental status that is now resolved. Patient has been fighting some gastroenteritis over the whole weekend with nausea vomiting diarrhea. Patient was not eating oral intake but continued to take her glipizide. Patient denies all symptoms outside of some mild nausea - Related Data Allergies/Adverse Reactions: kiwi Allergy (Verified 07/03/17 12:02) Facial edema and rash Past Medical History - Social History Smoking Status: Unknown if Ever Smoked Family History: Reviewed & Not Pertinent - Past Medical History Cardiac Medical History: Reports: Hx Hypercholesterolemia, Hx Hypertension Denies: Hx Atrial Fibrillation, Hx Congestive Heart Failure, Hx Coronary Artery Disease, Hx Heart Attack Pulmonary Medical History: Reports: Hx Pneumonia Denies: Hx Asthma, Hx Bronchitis, Hx COPD, Hx Tuberculosis Neurological Medical History: Denies: Hx Cerebrovascular Accident, Hx Migraine, Hx Seizures Endocrine Medical History: Reports: Hx Diabetes Mellitus Type 1, Hx Diabetes Mellitus Type 2 Renal/ Medical History: Denies: Hx Peritoneal Dialysis GI Medical History: Denies: Hx Hepatitis, Hx Hiatal Hernia, Hx Ulcer Musculoskeltal Medical History: Denies Hx Arthritis, Denies Hx Gout, Denies Hx Multiple Sclerosis, Denies Hx Muscular Dystrophy Psychiatric Medical History: Reports: Hx Depression Traumatic Medical History: Denies: Hx Traumatic Brain Injury Infectious Medical History: Denies: Hx Hepatitis Past Surgical History: Reports: Hx Bowel Surgery, Hx Breast Surgery, Hx Orthopedic Surgery - left arm, collar bone. Denies: Hx Appendectomy, Hx Section, Hx Cholecystectomy, Hx Coronary Artery Bypass Graft, Hx Gastric Bypass Surgery, Hx Herniorrhaphy, Hx Hysterectomy, Hx Mastectomy, Hx Open Heart Surgery, Hx Pacemaker, Hx Tonsillectomy, Hx Tubal Ligation - Immunizations Hx Diphtheria, Pertussis, Tetanus Vaccination: No - unsure Hx Pneumococcal Vaccination: 03/31/11 Review of Systems - Review of Systems Constitutional: No symptoms reported EENT: No symptoms reported Cardiovascular: No symptoms reported Respiratory: No symptoms reported Gastrointestinal: Diarrhea, Nausea, Vomiting Genitourinary: No symptoms reported Female Genitourinary: No symptoms reported Musculoskeletal: No symptoms reported Skin: No symptoms reported Hematologic/Lymphatic: No symptoms reported Neurological/Psychological: No symptoms reported Physical Exam - Vital signs Interpretation: Normal - General General appearance: Appears well, Alert - HEENT Head: Normocephalic, Atraumatic Eyes: Normal Pupils: PERRL - Respiratory Respiratory status: No respiratory distress Chest status: Nontender Breath sounds: Normal Chest palpation: Normal - Cardiovascular Rhythm: Regular Heart sounds: Normal auscultation Murmur: No - Abdominal Inspection: Normal Distension: No distension Bowel sounds: Normal Tenderness: Nontender Organomegaly: No organomegaly - Back Back: Normal, Nontender - Extremities General upper extremity: Normal inspection, Nontender, Normal color, Normal ROM , Normal temperature General lower extremity: Normal inspection, Nontender, Normal color, Normal ROM , Normal temperature, Normal weight bearing. No: Lee's sign - Neurological Neuro grossly intact: Yes Cognition: Normal Orientation: AAOx4 [place] Coma Scale Eye Opening: Spontaneous [place] Coma Scale Verbal: Oriented [place] Coma Scale Motor: Obeys Commands [place] Coma Scale Total: 15 Speech: Normal Motor strength normal: LUE, RUE, LLE, RLE Sensory: Normal - Psychological Associated symptoms: Normal affect, Normal mood - Skin Skin Temperature: Warm Skin Moisture: Dry Skin Color: Normal Course - Re-evaluation Re-evalutation: 07/05/17 08:09 Well-appearing female no acute distress resolved hypoglycemia. Patient had been continuing to take her diabetic medication without enough oral intake. Given fluid resuscitation and antiemetics. 07/05/17 10:32 Well-appearing female not eating drinking appropriately. All labs unremarkable. Patient feels much improved fluid resuscitation given. Patient was given prescription for oral antiemetics and loperamide. Patient scheduled to see her family doctor at 5 PM today. I encouraged her to keep that appointment. Return if anything changes - Laboratory Result Diagrams: 07/05/17 08:45 07/05/17 08:45 Laboratory results interpreted by me: 07/05/17 07/05/17 07/05/17 08:45 08:45 09:30 Hct 35.6 L Seg Neutrophils % 79.6 H Lymphocytes % 11.5 L Potassium 3.3 L Est GFR ( Amer) 58 L Est GFR (Non-Af Amer) 48 L Glucose 60 L POC Glucose 58 L Calcium 8.0 L Urine Blood Urine Urobilinogen 07/05/17 10:00 Hct Seg Neutrophils % Lymphocytes % Potassium Est GFR ( Amer) Est GFR (Non-Af Amer) Glucose POC Glucose Calcium Urine Blood SMALL H Urine Urobilinogen 2.0 H - Diagnostic Test Radiology reviewed: Reports reviewed - EKG Interpretation by Me Additional EKG results interpreted by me: 07/05/17 08:43 Normal sinus rhythm 56 bpm, no ST elevations or depressions, normal QRS. Discharge - Discharge Clinical Impression: Hypoglycemia Disposition: HOME, SELF-CARE Prescriptions: Ondansetron [Zofran Odt 4 mg Tablet] 1 - 2 tab PO Q4HP PRN #10 tab.rapdis PRN Reason: Loperamide HCl [Loperamide] 2 mg PO Q6H #15 capsule Referrals: HARJEET CARROLL MD [Primary Care Provider] - Follow up as needed
[2017-07-05 09:07] LABS: ABSOLUTE EOSINOPHILS # (AUTO) 0.1 10^3/uL (0.0-0.6); ABSOLUTE LYMPHOCYTES (AUTO) 0.8 10^3/uL (0.5-4.7); ABSOLUTE MONOCYTES (AUTO) 0.5 10^3/uL (0.1-1.4); ABSOLUTE NEUT (AUTO) 5.8 10^3/uL (1.7-8.2); BASOPHILS % (AUTO) 0.4 % (0-2); EOSINOPHILS % (AUTO) 1.3 % (0-6); HEMATOCRIT 35.6 % (36.0-47.0); LYMPHOCYTES % (AUTO) 11.5 % (13-45); MEAN CORPUSCULAR HEMOGLOBIN 30.2 pg (27.0-33.4); MEAN CORPUSCULAR HGB CONC 33.8 g/dL (32.0-36.0); MEAN CORPUSCULAR VOLUME 89 fl (80-97); MONOCYTES % (AUTO) 7.2 % (3-13); PLATELET COUNT 173 10^3/uL (150-450); RED BLOOD COUNT 3.98 10^6/uL (3.72-5.28); RED CELL DISTRIBUTION WIDTH 13.7 % (11.5-14.0); SEGMENTED NEUTROPHILS % (AUTO) 79.6 % (42-78); TOTAL CELLS COUNTED % (AUTO) 100 %; WHITE BLOOD COUNT 7.2 10^3/uL (4.0-10.5)
[2017-07-05 09:19] LABS: ANION GAP 9 (5-19); BLOOD UREA NITROGEN 17 mg/dL (7-20); CARBON DIOXIDE 26 mmol/L (22-30); CHLORIDE 105 mmol/L (98-107); GLUCOSE 60 mg/dL (75-110); POTASSIUM 3.3 mmol/L (3.6-5.0); SODIUM 140.1 mmol/L (137-145)
--- NOTE | 2017-07-05 09:50 | EKG REPORT ---
SEVERITY:- ABNORMAL ECG - SINUS RHYTHM LEFT AXIS DEVIATION CONSIDER ANTERIOR INFARCT BORDERLINE T ABNORMALITIES, DIFFUSE LEADS : Confirmed by: Yomi Diallo 05-Jul-2017 09:50:08
[2017-07-05 10:15] LABS: APPEARANCE,URINE CLEAR; BILIRUBIN,URINE NEGATIVE (NEGATIVE); COLOR,URINE YELLOW; GLUCOSE, URINE NEGATIVE (NEGATIVE); KETONES,URINE NEGATIVE (NEGATIVE); LEUKOCYTE ESTERASE,URINE NEGATIVE (NEGATIVE); NITRITE,URINE NEGATIVE (NEGATIVE); PROTEIN,URINE NEGATIVE (NEGATIVE)
[2017-07-05 12:21] VITALS: BP 138/45
== END 2017-07-05 12:30 | disposition home or self-care (01) ==
LOC: ER 07:47
DX: E11.649 Type 2 diabetes mellitus with hypoglycemia without coma (principal); R19.7 Diarrhea, unspecified; R11.2 Nausea with vomiting, unspecified; E78.00 Pure hypercholesterolemia, unspecified; I10 Essential (primary) hypertension
CPT/HCPCS: 93005; 99285; 96374; 36415; 82962; 85025; 80048; 81001; 93010; J2405

== ENCOUNTER 2017-10-24 05:20 | Emergency (ER) | payer OTHER ==
--- NOTE | 2017-10-24 05:55 | RADIOLOGY REPORT (SQ) ---
EXAM DESCRIPTION: XR CHEST 2 VIEWS CLINICAL HISTORY: 72 years Female, sob COMPARISON: 1.5.18 FINDINGS: Adequate lung volume, clear parenchyma, prominent interstitium, normal cardiac silhouette, and intact bony thorax. IMPRESSION: No acute cardiopulmonary findings.
[2017-10-24] MEDS ORDERED: IPRATROPIUM/ALBUTEROL 0.5-2.5 MG/3 ML AMPUL NEB ONE (06:45)
[2017-10-24 07:40] LABS: HEMATOCRIT 35.6 % (36.0-47.0); HEMOGLOBIN 12.1 g/dL (12.0-15.5); MEAN CORPUSCULAR HEMOGLOBIN 30.6 pg (27.0-33.4); MEAN CORPUSCULAR VOLUME 90 fl (80-97); PLATELET COUNT 188 10^3/uL (150-450); RED BLOOD COUNT 3.97 10^6/uL (3.72-5.28); RED CELL DISTRIBUTION WIDTH 14.1 % (11.5-14.0); WHITE BLOOD COUNT 5.5 10^3/uL (4.0-10.5)
[2017-10-24 07:56] LABS: ANION GAP 11 (5-19); BLOOD UREA NITROGEN 14 mg/dL (7-20); CALCIUM 9.5 mg/dL (8.4-10.2); CARBON DIOXIDE 29 mmol/L (22-30); CHLORIDE 109 mmol/L (98-107); GLUCOSE 96 mg/dL (75-110); POTASSIUM 5.1 mmol/L (3.6-5.0); SODIUM 149.2 mmol/L (137-145)
--- NOTE | 2017-10-24 08:38 | EKG REPORT ---
SEVERITY:- ABNORMAL ECG - SINUS RHYTHM LEFT AXIS DEVIATION LEFT VENTRICULAR HYPERTROPHY ABNORMAL T, PROBABLE ISCHEMIA, ANTERIOR LEADS , UNCHANGED FROM 07/05/17 EKG : Confirmed by: Compa Richardson MD 24-Oct-2017 08:38:21
[2017-10-24] MEDS ORDERED: ALBUTEROL SULFATE HFA (90 MCG/PUFF) 8 GM MDI (1 MDI/ER DISP) IH ONE (09:38)
--- NOTE | 2017-10-24 09:45 | ER Document Report ---
ED General - General Chief Complaint: Shortness Of Breath Stated Complaint: SHORTNESS OF BREATH Time Seen by Provider: 10/24/17 06:37 TRAVEL OUTSIDE OF THE [place] IN LAST 30 DAYS: No - HPI Patient complains to provider of: Shortness of breath Notes: Patient coming in for shortness of breath ongoing for last few days. Patient denies any recent travel denies any fevers chills nausea vomiting diarrhea denies any chest pain or abdominal pain. Patient states having postnasal drainage and cough causing shortness of breath. Denies a history of smoking denies any medications taken at home for her symptoms. - Related Data Allergies/Adverse Reactions: kiwi Allergy (Verified 10/24/17 06:34) Facial edema and rash Past Medical History - Social History Smoking Status: Never Smoker Frequency of alcohol use: None Drug Abuse: None Family History: Reviewed & Not Pertinent Patient has suicidal ideation: No Patient has homicidal ideation: No - Past Medical History Cardiac Medical History: Reports: Hx Hypercholesterolemia, Hx Hypertension Denies: Hx Atrial Fibrillation, Hx Congestive Heart Failure, Hx Coronary Artery Disease, Hx Heart Attack Pulmonary Medical History: Reports: Hx Pneumonia Denies: Hx Asthma, Hx Bronchitis, Hx COPD, Hx Tuberculosis Neurological Medical History: Denies: Hx Cerebrovascular Accident, Hx Migraine, Hx Seizures Endocrine Medical History: Reports: Hx Diabetes Mellitus Type 1, Hx Diabetes Mellitus Type 2 Renal/ Medical History: Denies: Hx Peritoneal Dialysis GI Medical History: Denies: Hx Hepatitis, Hx Hiatal Hernia, Hx Ulcer Musculoskeltal Medical History: Denies Hx Arthritis, Denies Hx Gout, Denies Hx Multiple Sclerosis, Denies Hx Muscular Dystrophy Psychiatric Medical History: Reports: Hx Depression Traumatic Medical History: Denies: Hx Traumatic Brain Injury Infectious Medical History: Denies: Hx Hepatitis Past Surgical History: Reports: Hx Bowel Surgery, Hx Breast Surgery, Hx Orthopedic Surgery - left arm, collar bone. Denies: Hx Appendectomy, Hx Section, Hx Cholecystectomy, Hx Coronary Artery Bypass Graft, Hx Gastric Bypass Surgery, Hx Herniorrhaphy, Hx Hysterectomy, Hx Mastectomy, Hx Open Heart Surgery, Hx Pacemaker, Hx Tonsillectomy, Hx Tubal Ligation - Immunizations Hx Diphtheria, Pertussis, Tetanus Vaccination: No - unsure Hx Pneumococcal Vaccination: 03/31/11 Review of Systems - Review of Systems Constitutional: No symptoms reported EENT: No symptoms reported Cardiovascular: No symptoms reported Respiratory: Cough, Short of breath, Wheezing Gastrointestinal: No symptoms reported Genitourinary: No symptoms reported Female Genitourinary: No symptoms reported Musculoskeletal: No symptoms reported Skin: No symptoms reported Hematologic/Lymphatic: No symptoms reported Neurological/Psychological: No symptoms reported -: Yes All other systems reviewed and negative Physical Exam - Vital signs Vitals: Temp Pulse Resp BP Pulse Ox 98.5 F 51 L 24 H 145/48 H 97 10/24/17 05:28 10/24/17 05:28 10/24/17 05:28 10/24/17 05:28 10/24/17 05:28 Interpretation: Normal - General General appearance: Appears well, Alert - HEENT Head: Normocephalic, Atraumatic Eyes: Normal Conjunctiva: Normal Cornea: Normal Pupils: PERRL Pharynx: Post nasal drainage Neck: Normal - Respiratory Respiratory status: No respiratory distress Chest status: Nontender Breath sounds: Wheezing Chest palpation: Normal - Cardiovascular Rhythm: Regular Heart sounds: Normal auscultation Murmur: No - Abdominal Inspection: Normal Distension: No distension Bowel sounds: Normal Tenderness: Nontender Organomegaly: No organomegaly - Back Back: Normal, Nontender - Extremities General upper extremity: Normal inspection, Nontender, Normal color, Normal ROM , Normal temperature General lower extremity: Normal inspection, Nontender, Normal color, Normal ROM , Normal temperature, Normal weight bearing. No: Lee's sign - Neurological Neuro grossly intact: Yes Cognition: Normal Orientation: AAOx4 [place] Coma Scale Eye Opening: Spontaneous [place] Coma Scale Verbal: Oriented [place] Coma Scale Motor: Obeys Commands [place] Coma Scale Total: 15 Speech: Normal Motor strength normal: LUE, RUE, LLE, RLE Sensory: Normal - Psychological Associated symptoms: Normal affect, Normal mood - Skin Skin Temperature: Warm Skin Moisture: Dry Skin Color: Normal Course - Re-evaluation Re-evalutation: 10/24/17 14:42 Patient coming in for cough shortness of breath EKG does not show any acute changes with a negative troponin. Patient's chest x-ray did not show any signs of pneumonia. More likely patient has underlying bronchitis due to postnasal drip. Patient was recommended to start an H2 leon. Patient was given bronchodilator therapy here in ER states improvement of her symptoms. Patient will be discharged home to follow-up with her primary care physician 10/24/17 14:43 Laboratory studies showed hypernatremia more likely due to underlying dehydration patient was encouraged to drink more water. Patient states she drinks a lot of crystal light - Vital Signs Vital signs: Temp Pulse Resp BP Pulse Ox 98.5 F 54 L 20 160/60 H 96 10/24/17 05:28 10/24/17 09:55 10/24/17 09:55 10/24/17 09:55 10/24/17 09:55 - Laboratory Result Diagrams: 10/24/17 07:11 10/24/17 07:11 Laboratory results interpreted by me: 10/24/17 10/24/17 07:11 07:11 Hct 35.6 L RDW 14.1 H Sodium 149.2 H Potassium 5.1 H Chloride 109 H Est GFR (Non-Af Amer) 53 L Discharge - Discharge Clinical Impression: Bronchitis with wheezing, Sinus drainage, Hypernatremia due to dehydration Disposition: HOME, SELF-CARE Instructions: Bronchitis With Bronchospasm (Wheezing) ([facility]) Additional Instructions: Chest x-ray today does not show any signs of pneumonia. Laboratory studies also not show any signs of significant pathology. Your cardiac studies not showing signs cardiac ischemia. I do believe your symptoms is caused by some postnasal drainage which is inflaming her lungs causing the cough and causing the shortness of breath. The care will be to decrease the postnasal drainage I would recommend starting a antihistamine Zyrtec as prescribed. Also using the inhaler that we gave you or the inhaler as prescribed 2 puffs every 4 hours for shortness of breath. He may try [id number] cough medication I will also recommend using honey for cough elevate the head of your bed increase the humidity in your house with humidifier or by boiling water or by getting to a hot shower. If you develop a fever return to the ER for further evaluation Prescriptions: Albuterol Sulfate [Proair HFA Inhalation Aerosol 8.5 gm MDI] 2 puff IH Q4H PRN # 1 mdi PRN Reason: Cetirizine HCl [Zyrtec] 10 mg PO DAILY #30 tablet Forms: Return to Work
[2017-10-24 10:04] VITALS: BP 160/60
== END 2017-10-24 10:02 | disposition home or self-care (01) ==
LOC: ER 05:20
DX: J40 Bronchitis, not specified as acute or chronic (principal); E87.0 Hyperosmolality and hypernatremia; E86.0 Dehydration; R09.82 Postnasal drip; E78.00 Pure hypercholesterolemia, unspecified; I10 Essential (primary) hypertension
CPT/HCPCS: 93005; 94640; 99285; 36415; 85027; 80048; 84484; 71046; 93010; J3490; A9270; J7620

== ENCOUNTER → 2018-05-10 | Outpatient (CLI) | payer OTHER ==
--- NOTE | 2018-05-10 12:20 | WOMENS IMAGING REPORT ---
EXAM DESCRIPTION: BONE DENSITY HIP/SPINE COMPLETED DATE/TIME: 05/10/2018 11:18 am REASON FOR STUDY: BONE DENSITY TEST/M81.0 M81.0 AGE-RELATED OSTEOPOROSIS W/O CURRENT PATHOLOGICAL F RAC Z12.31 ENCNTR SCREEN MAMMOGRAM FOR MALIGNANT NEOPLASM OF MARTHA COMPARISON: None. TECHNIQUE: Dual-Energy X-ray Absorptiometry (DEXA) of the AP Spine and Hip. LIMITATIONS: None. FINDINGS: LUMBAR SPINE: The bone mineral density (BMD) measured from L1-L4 in the AP projection correlates with a T-score of -0.6, which is normal as defined by the World Health Organization. HIP: The bone mineral density (BMD) measured in the left hip correlates with a T-score of -0.5, which is n ormal as defined by the World Health Organization. IMPRESSION: 1. LUMBAR SPINE: NORMAL. 2. HIP: NORMAL. COMMENT: The World Health Organization defines low BMD as follows: T-score: Normal: Greater than -1.0 Osteopenia: Between -1.0 and -2.5 Osteoporosis: Less than -2.5 without fractures Established osteoporosis: Less than -2.5 with fractures In general, you may wish to consider: Diagnosis Treatment Follow-up DEXA Normal BMD Prevention 2-3 years Osteopenia Prevention/Therapy 1-2 years Osteoporosis Therapy Yearly TECHNICAL DOCUMENTATION: JOB ID: [id number] All Rights Reserved Reading location - IP/workstation name: [email or web address]
--- NOTE | 2018-05-10 16:13 | WOMENS IMAGING REPORT ---
EXAM DESCRIPTION: BILAT SCREENING MAMMO W/CAD COMPLETED DATE/TIME: 05/10/2018 11:18 am REASON FOR STUDY: BILATERAL SCREENING MAMMO/Z12.31 M81.0 AGE-RELATED OSTEOPOROSIS W/O CURRENT PATHO LOGICAL FRAC Z12.31 ENCNTR SCREEN MAMMOGRAM FOR MALIGNANT NEOPLASM OF MARTHA COMPARISON: Multiple since 2009 TECHNIQUE: Standard craniocaudal and mediolateral oblique views of each breast recorded using digita l acquisition. LIMITATIONS: None. FINDINGS: Findings present which are benign by mammographic criteria. No suspicious masses, calcifi cations or architectural distortion. Pertinent benign findings: Benign bilateral breast parenchymal calcifications Read with the assistance of CAD. .[facility] - R2 Cenova Version 1.3 .[facility] - R2 Cenova Version 1.3 .[facility] - R2 Cenova Version 2.4 .[facility] - R2 Cenova Version 2.4 .[facility] - R2 Skydiving Instructor Version 9.2 Benign mammographic findings may include one or more of the following: Smooth masses, popcorn/rim/co arse calcifications, asymmetries, post-procedure changes, and lesions with long-standing stability. IMPRESSION: BENIGN MAMMOGRAPHIC FINDINGS. BIRADS 2 BREAST DENSITY: b. There are scattered areas of fibroglandular density. BIRAD: 2 BENIGN FINDING(S) RECOMMENDATION: ROUTINE SCREENING Please continue yearly bilateral screening tomosynthesis/mammography April 2019 COMMENT: The patient has been notified of the results by letter per [place] requirements. Additional no tification policies are in place for contacting patient with suspicious or incomplete findings. Quality ID #[id number]: The [employer] recommends an annual screening mammogram for women aged 40 years or over. This facility utilizes a reminder system to ensure that all patients receive reminder letters, and/or direct phone calls for appointments. This includes reminders for routine scr eening mammograms, diagnostic mammograms, or other Breast Imaging Interventions when appropriate. Th is patient will be placed in the appropriate reminder system. The [employer] (A[employer]) has developed recommendations for screening MRI of the breast s in certain patient populations, to be used in conjunction with mammography. Breast MRI surveillanc e may be appropriate for women with more than 20% lifetime risk of developing breast cancer as deter mined by genetic testing, significant family history of the disease, or history of mantle radiation f or Hodgkins Disease. ACR Practice Guidelines 2008. TECHNICAL DOCUMENTATION: FINDING NUMBER: (1) ASSESSMENT: (1) JOB ID: [id number] [email or web address]- All Rights Reserved Reading location - IP/workstation name: [email or web address]
== END ==
LOC: WI 10:10
PROVIDERS: ATTEND Physician Assistant
DX: M81.0 Age-related osteoporosis without current pathological fracture (principal); Z12.31 Encounter for screening mammogram for malignant neoplasm of breast
CPT/HCPCS: 77067; 77080

== ENCOUNTER 2018-11-05 15:11 | Emergency (ER) | payer OTHER ==
[2018-11-05] MEDS ORDERED: ONDANSETRON HCL INJ/PF 4 MG/2 ML SDV IV ONE (15:37)
--- NOTE | 2018-11-05 15:39 | ER Document Report ---
ED Medical Screen (RME) - General Chief Complaint: Chest Pain Stated Complaint: CHEST PAIN Time Seen by Provider: 11/05/18 15:37 Primary Care Provider: ERICA LANGSTON PA-C [Primary Care Provider] - Follow up as needed TRAVEL OUTSIDE OF THE [place] IN LAST 30 DAYS: No - HPI Notes: 11/05/18 15:38 Patient is a 73-year-old female with a history of hypertension, type 2 diabetes, hypercholesterolemia, chronic edema to lower extremities who presents complaining of epigastric/lower sternal chest pain that began at 1430 today. Patient states that the pain does not radiate. She does have associated nausea without vomiting as well as some shortness of breath. No history of IN, DVT, PE, CVA. Denies MARION, fever, neck pain, URI, n/v/d, dysuria, back pain, or rash. I have treated and performed a rapid initial assessment of this patient. A comprehensive ED assessment and evaluation of the patient, analysis of test results and completion of medical decision making process will be conducted by additional ED providers. PHYSICAL EXAMINATION: GENERAL: Well-appearing, well-nourished and in no acute distress. A&Ox4. Answers questions appropriately. LUNGS: Breath sounds clear to auscultation bilaterally and equal. No wheezes rales or rhonchi. HEART: Regular rate and rhythm without murmurs, rubs, gallops. ABDOMEN: Soft, nondistended abdomen. No guarding, no rebound. Normal bowel sounds present. No CVA tenderness bilaterally. + mild epigastric tenderness (cannot elicit thorough abd exam w/o bed, however). Extremities: edema b/l LE's noted. No asymmetry or calf tenderness. NEUROLOGICAL: Normal speech, normal gait. PSYCH: Normal mood, normal affect. - Related Data Allergies/Adverse Reactions: kiwi Allergy (Verified 11/05/18 15:12) Facial edema and rash Past Medical History - Past Medical History Cardiac Medical History: Reports: Hx Hypercholesterolemia, Hx Hypertension Denies: Hx Atrial Fibrillation, Hx Congestive Heart Failure, Hx Coronary Artery Disease, Hx Heart Attack Pulmonary Medical History: Reports: Hx Pneumonia Denies: Hx Asthma, Hx Bronchitis, Hx COPD, Hx Tuberculosis Neurological Medical History: Denies: Hx Cerebrovascular Accident, Hx Migraine, Hx Seizures Endocrine Medical History: Reports: Hx Diabetes Mellitus Type 1, Hx Diabetes Mellitus Type 2 Renal/ Medical History: Denies: Hx Peritoneal Dialysis GI Medical History: Denies: Hx Hepatitis, Hx Hiatal Hernia, Hx Ulcer Musculoskeltal Medical History: Denies Hx Arthritis, Denies Hx Gout, Denies Hx Multiple Sclerosis, Denies Hx Muscular Dystrophy Psychiatric Medical History: Reports: Hx Depression Traumatic Medical History: Denies: Hx Traumatic Brain Injury Infectious Medical History: Denies: Hx Hepatitis Past Surgical History: Reports: Hx Bowel Surgery, Hx Breast Surgery, Hx Orthopedic Surgery - left arm, collar bone. Denies: Hx Appendectomy, Hx Section, Hx Cholecystectomy, Hx Coronary Artery Bypass Graft, Hx Gastric Bypass Surgery, Hx Herniorrhaphy, Hx Hysterectomy, Hx Mastectomy, Hx Open Heart Surgery, Hx Pacemaker, Hx Tonsillectomy, Hx Tubal Ligation - Immunizations Hx Diphtheria, Pertussis, Tetanus Vaccination: No - unsure Physical Exam - Vital signs Vitals: Temp Pulse Resp BP Pulse Ox 98.8 F 64 16 182/61 H 93 11/05/18 15:24 11/05/18 15:24 11/05/18 15:24 11/05/18 15:24 11/05/18 15:24 Course - Vital Signs Vital signs: Temp Pulse Resp BP Pulse Ox 98.8 F 64 16 182/61 H 93 11/05/18 15:24 11/05/18 15:24 11/05/18 15:24 11/05/18 15:24 11/05/18 15:24 Doctor's Discharge - Discharge Referrals: ERICA LANGSTON PA-C [Primary Care Provider] - Follow up as needed
--- NOTE | 2018-11-05 17:21 | RADIOLOGY REPORT (SQ) ---
EXAM DESCRIPTION: CHEST SINGLE VIEW COMPLETED DATE/TIME: 11/05/2018 5:13 pm REASON FOR STUDY: CP/epigastric pain COMPARISON: 10/24/2017 EXAM PARAMETERS: NUMBER OF VIEWS: One view. TECHNIQUE: Single frontal radiographic view of the chest acquired. RADIATION DOSE: NA LIMITATIONS: None. FINDINGS: LUNGS AND PLEURA: No opacities, masses or pneumothorax. No pleural effusion. MEDIASTINUM AND HILAR STRUCTURES: No masses. Contour normal. HEART AND VASCULAR STRUCTURES: Cardiomegaly. BONES: No acute findings. HARDWARE: None in the chest. OTHER: No other significant finding. IMPRESSION: Cardiomegaly without acute abnormality of the lungs in AP projection. TECHNICAL DOCUMENTATION: JOB ID: [id number] [employer]- All Rights Reserved Reading location - IP/workstation name: [email or web address]
--- NOTE | 2018-11-05 17:24 | EKG REPORT ---
SEVERITY:- ABNORMAL ECG - SINUS RHYTHM PROBABLE INFERIOR INFARCT, AGE INDETERMINATE NONSPECIFIC ST-T CHANGES ANTERIOR LEADS, CONSIDER ANTERIOR NM, AGE UNDETERMINED. : Confirmed by: Compa Richardson MD 05-Nov-2018 17:23:46
[2018-11-05 17:54] LABS: ABSOLUTE BASOPHILS # (AUTO) 0.1 10^3/uL (0.0-0.2); ABSOLUTE EOSINOPHILS # (AUTO) 0.2 10^3/uL (0.0-0.6); ABSOLUTE LYMPHOCYTES (AUTO) 1.5 10^3/uL (0.5-4.7); ABSOLUTE MONOCYTES (AUTO) 0.4 10^3/uL (0.1-1.4); BASOPHILS % (AUTO) 0.9 % (0-2); EOSINOPHILS % (AUTO) 3.2 % (0-6); HEMATOCRIT 34.1 % (36.0-47.0); HEMOGLOBIN 11.5 g/dL (12.0-15.5); LYMPHOCYTES % (AUTO) 20.2 % (13-45); MEAN CORPUSCULAR HEMOGLOBIN 30.3 pg (27.0-33.4); MEAN CORPUSCULAR HGB CONC 33.7 g/dL (32.0-36.0); MEAN CORPUSCULAR VOLUME 90 fl (80-97); MONOCYTES % (AUTO) 5.3 % (3-13); PLATELET COUNT 197 10^3/uL (150-450); RED BLOOD COUNT 3.79 10^6/uL (3.72-5.28); RED CELL DISTRIBUTION WIDTH 14.2 % (11.5-14.0); SEGMENTED NEUTROPHILS % (AUTO) 70.4 % (42-78); TOTAL CELLS COUNTED % (AUTO) 100 %; WHITE BLOOD COUNT 7.2 10^3/uL (4.0-10.5)
[2018-11-05 18:11] LABS: ALANINE AMINOTRANSFERASE 25 U/L (9-52); ALBUMIN 4.1 g/dL (3.5-5.0); ALKALINE PHOSPHATASE 89 U/L (38-126); ANION GAP 10 (5-19); ASPARTATE AMINO TRANSFERASE 21 U/L (14-36); BILIRUBIN,DIRECT 0.5 mg/dL (0.0-0.4); BILIRUBIN,TOTAL 1.1 mg/dL (0.2-1.3); BLOOD UREA NITROGEN 15 mg/dL (7-20); CALCIUM 9.1 mg/dL (8.4-10.2); CARBON DIOXIDE 27 mmol/L (22-30); CHLORIDE 107 mmol/L (98-107); GLUCOSE 172 mg/dL (75-110); LIPASE 29.4 U/L (23-300); POTASSIUM 4.1 mmol/L (3.6-5.0); SODIUM 144.3 mmol/L (137-145); TOTAL PROTEIN 6.7 g/dL (6.3-8.2)
[2018-11-05 18:21] LABS: TROPONIN I 0.014 ng/mL
--- NOTE | 2018-11-05 21:48 | ER Document Report ---
ED General - General Chief Complaint: Chest Pain Stated Complaint: CHEST PAIN Time Seen by Provider: 11/05/18 15:37 Primary Care Provider: ERICA LANGSTON PA-C [Primary Care Provider] - Follow up as needed Notes: Patient is a 73-year-old female with a history of hypertension, type 2 diabetes, hypercholesterolemia, chronic edema to lower extremities who presents complaining of epigastric/lower sternal chest pain that began at 1430 today. Patient states that the pain was a shocking, searing pain that came on abruptly while she was watching television and was associate with some right shoulder pain. Was severe when present. Lasted for approximately 30 minutes and then spontaneously resolved without intervention. No obvious exacerbating or triggering factor. 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 Last stress test was approximately 2 years ago. Currently denies any symptoms of any kind, states she feels well. TRAVEL OUTSIDE OF THE [place] IN LAST 30 DAYS: No - Related Data Allergies/Adverse Reactions: kiwi Allergy (Verified 11/05/18 15:12) Facial edema and rash Past Medical History - General Information source: Patient - Social History Smoking Status: Never Smoker Frequency of alcohol use: Rare Drug Abuse: None Lives with: Alone Family History: Reviewed & Not Pertinent Patient has suicidal ideation: No Patient has homicidal ideation: No - Past Medical History Cardiac Medical History: Reports: Hx Hypercholesterolemia, Hx Hypertension Denies: Hx Atrial Fibrillation, Hx Congestive Heart Failure, Hx Coronary Artery Disease, Hx Heart Attack Pulmonary Medical History: Reports: Hx Pneumonia Denies: Hx Asthma, Hx Bronchitis, Hx COPD, Hx Tuberculosis Neurological Medical History: Denies: Hx Cerebrovascular Accident, Hx Migraine, Hx Seizures Endocrine Medical History: Reports: Hx Diabetes Mellitus Type 1, Hx Diabetes Mellitus Type 2 Renal/ Medical History: Denies: Hx Peritoneal Dialysis GI Medical History: Denies: Hx Hepatitis, Hx Hiatal Hernia, Hx Ulcer Musculoskeletal Medical History: Denies Hx Arthritis, Denies Hx Gout, Denies Hx Multiple Sclerosis, Denies Hx Muscular Dystrophy Psychiatric Medical History: Reports: Hx Depression Traumatic Medical History: Denies: Hx Traumatic Brain Injury Infectious Medical History: Denies: Hx Hepatitis Past Surgical History: Reports: Hx Bowel Surgery, Hx Breast Surgery, Hx Orthoped ic Surgery - left arm, collar bone, TKR. Denies: Hx Appendectomy, Hx Section, Hx Cholecystectomy, Hx Coronary Artery Bypass Graft, Hx Gastric Bypass Surgery, Hx Herniorrhaphy, Hx Hysterectomy, Hx Mastectomy, Hx Open Heart Surgery, Hx Pacemaker, Hx Tonsillectomy, Hx Tubal Ligation - Immunizations Hx Diphtheria, Pertussis, Tetanus Vaccination: No - unsure Hx Pneumococcal Vaccination: 03/31/11 Review of Systems - Review of Systems Notes: Constitutional: Negative for fever. HENT: Negative for sore throat. Eyes: Negative for visual changes. Cardiovascular: Positive for chest pain. Respiratory: Negative for shortness of breath. Gastrointestinal: Negative for abdominal pain, vomiting or diarrhea. Genitourinary: Negative for dysuria. Musculoskeletal: Negative for back pain. Skin: Negative for rash. Neurological: Negative for headaches, weakness or numbness. 10 point ROS negative except as marked above and in HPI. Physical Exam - Vital signs Vitals: Temp Pulse Resp BP Pulse Ox 98.8 F 64 16 182/61 H 93 11/05/18 15:24 11/05/18 15:24 11/05/18 15:24 11/05/18 15:24 11/05/18 15:24 Interpretation: Hypertensive Notes: PHYSICAL EXAMINATION: GENERAL: Well-appearing, well-nourished and in no acute distress. HEAD: Atraumatic, normocephalic. EYES: Pupils equal round and reactive to light, extraocular movements intact, sclera anicteric, conjunctiva are normal. ENT: nares patent, oropharynx clear without exudates. Moist mucous membranes. NECK: Normal range of motion, supple without lymphadenopathy LUNGS: Breath sounds clear to auscultation bilaterally and equal. No wheezes rales or rhonchi. HEART: Regular rate and rhythm, 3 out of 6 systolic ejection murmur ABDOMEN: Soft, nontender, normoactive bowel sounds. No guarding, no rebound. No masses appreciated. EXTREMITIES: Normal range of motion, no pitting or edema. No cyanosis. NEUROLOGICAL: No focal neurological deficits. Moves all extremities spontaneously and on command. PSYCH: Normal mood, normal affect. SKIN: Warm, Dry, normal turgor, no rashes or lesions noted. Course - Re-evaluation Re-evalutation: 11/05/18 21:46 Presentation of chest pain in an otherwise well appearing patient. Low clinical suspicion for ACS given clinical history, exam, EKG without ST elevations or depressions, and negative initial troponin. Repeat troponin is pending. PE also seems unlikely given clinical history, absence of tachycardia or dyspnea. Wells score is 0. CXR without evidence of pneumothorax or pneumonia. No widened mediastinum. Aortic dissection also seems unlikely given history, symmetric pulses, CXR, and vitals. 11/05/18 23:26 Repeat troponin remains normal. Patient remains chest pain-free. I have discussed with the patient at length that her heart score is 4 putting her in the indeterminate risk category but not able to be classified as low risk. I have advised that the safest approach is for hospitalization for further troponin testing and possible stress testing. I have noted that this would be my formal recommendation. The patient states however because she is currently chest pain-free and has an appointment with her physician in less than 1 week she would prefer to go home. She understands that this is a riskier approach and that there is a non-insignificant chance that she could have an adverse cardiac event within the next several days. She states understanding of this risk. She is alert, oriented and of sound decision-making capacity. She states that she will return for any new symptoms or recurrence of chest discomfort, shortness of breath, nausea vomiting, arm or shoulder pain. This conversation was witnessed by her family member who is likewise in agreement. - Vital Signs Vital signs: Temp Pulse Resp BP Pulse Ox 98.8 F 64 19 163/71 H 95 11/05/18 15:24 11/05/18 15:24 11/05/18 19:01 11/05/18 19:01 11/05/18 19:01 - Laboratory Result Diagrams: 11/05/18 17:44 11/05/18 17:44 Laboratory results interpreted by me: 11/05/18 11/05/18 11/05/18 17:44 17:44 17:44 Hgb 11.5 L Hct 34.1 L RDW 14.2 H Est GFR (Non-Af Amer) 52 L Glucose 172 H Direct Bilirubin 0.5 H NT-Pro-B Natriuret Pep 929 H - Diagnostic Test Radiology reviewed: Image reviewed, Reports reviewed Radiology results interpreted by me: 11/05/18 21:47 Chest x-ray: No acute infiltrate or pneumothorax - EKG Interpretation by Me Additional EKG results interpreted by me: 11/05/18 21:48 Sinus rhythm, rate 59, nonspecific T wave inversions in the anterior septal leads. QTC 436. Discharge - Discharge Clinical Impression: Chest pain Qualifiers: Chest pain type: unspecified Qualified Code(s): R07.9 - Chest pain, unspecified Condition: Good Disposition: HOME, SELF-CARE Additional Instructions: You were seen today for chest pain. The exact cause of your pain is unclear. However, based on your cardiac enzyme testing, chest x-ray, and EKG it does not appear that it is from an immediately life-threatening cause at this time. Although your testing here is normal is critical that you follow-up with your primary care physician for continued evaluation of this chest pain and possible stress testing. I recommended you see your physician within the next 24-48 hours to be evaluated for consideration of a stress test. Please return to emergency department immediately if you have worsening of your chest pain, shortness of breath, vomiting, become unable to exert yourself due to pain or difficulty breathing, you pass out, or have any pain that radiates into your arms, jaw, or back. Please also return if you have any additional symptoms that are concerning to you. Referrals: ERICA LANGSTON PA-C [Primary Care Provider] - Follow up in 3-5 days
[2018-11-05 23:46] VITALS: BP 146/59
== END 2018-11-06 00:07 | disposition home or self-care (01) ==
LOC: ER 15:11
DX: R07.9 Chest pain, unspecified (principal); R10.13 Epigastric pain; I10 Essential (primary) hypertension; E11.9 Type 2 diabetes mellitus without complications; E78.00 Pure hypercholesterolemia, unspecified
CPT/HCPCS: 93005; 99285; 96374; 36415; 83690; 85025; 80053; 84484; 83880; 71045; 93010; J2405

== ENCOUNTER 2019-01-30 03:54 | Emergency (ER) | payer OTHER ==
[2019-01-30] MEDS ORDERED: METHOCARBAMOL 750 MG TABLET PO ONE (04:52)
[2019-01-30] MEDS ORDERED: KETOROLAC TROMETHAMINE 60 MG/2 ML SDV IM ONE (04:52)
--- NOTE | 2019-01-30 04:52 | ER Document Report ---
HPI - HPI Time Seen by Provider: 01/30/19 04:27 Pain Level: 4 Notes: Patient is a 73-year-old female presenting to the emergency department chief complaint of right-sided low back pain. Patient reports pain started yesterday. Patient denies any trauma or heavy lifting. She states the pain runs from her buttock area down the back of her leg. She denies any loss of control of her bowels or bladder, denies any saddle anesthesia or fevers. - REPRODUCTIVE Reproductive: DENIES: : Past Medical History - General Information source: Patient - Social History Smoking Status: Never Smoker Frequency of alcohol use: None Drug Abuse: None Family History: Reviewed & Not Pertinent - Past Medical History Cardiac Medical History: Reports: Hx Hypercholesterolemia, Hx Hypertension Denies: Hx Atrial Fibrillation, Hx Congestive Heart Failure, Hx Coronary Artery Disease, Hx Heart Attack Pulmonary Medical History: Reports: Hx Pneumonia Denies: Hx Asthma, Hx Bronchitis, Hx COPD, Hx Tuberculosis Neurological Medical History: Denies: Hx Cerebrovascular Accident, Hx Migraine, Hx Seizures Endocrine Medical History: Reports: Hx Diabetes Mellitus Type 1, Hx Diabetes Mellitus Type 2 Renal/ Medical History: Denies: Hx Peritoneal Dialysis GI Medical History: Denies: Hx Hepatitis, Hx Hiatal Hernia, Hx Ulcer Musculoskeletal Medical History: Denies Hx Arthritis, Denies Hx Gout, Denies Hx Multiple Sclerosis, Denies Hx Muscular Dystrophy Psychiatric Medical History: Reports: Hx Depression Traumatic Medical History: Denies: Hx Traumatic Brain Injury Infectious Medical History: Denies: Hx Hepatitis Past Surgical History: Reports: Hx Bowel Surgery, Hx Breast Surgery, Hx Orthopedic Surgery - left arm, collar bone, TKR. Denies: Hx Appendectomy, Hx Section, Hx Cholecystectomy, Hx Coronary Artery Bypass Graft, Hx Gastric Bypass Surgery, Hx Herniorrhaphy, Hx Hysterectomy, Hx Mastectomy, Hx Open Heart Surgery, Hx Pacemaker, Hx Tonsillectomy, Hx Tubal Ligation - Immunizations Hx Diphtheria, Pertussis, Tetanus Vaccination: No - unsure Hx Pneumococcal Vaccination: 03/31/11 Vertical Provider Document - CONSTITUTIONAL Notes: PHYSICAL EXAMINATION: GENERAL: Well-appearing, well-nourished and in no acute distress. HEAD: Atraumatic, normocephalic. EYES: Pupils equal round extraocular movements intact, conjunctiva are normal. ENT: Nares patent NECK: Normal range of motion LUNGS: No respiratory distress Musculoskeletal: Normal range of motion, tenderness to the right lumbar paraspinous region, no vertebral tenderness, step-off or deformity. No CVA tenderness. NEUROLOGICAL: Normal speech, normal gait. PSYCH: Normal mood, normal affect. SKIN: Warm, Dry, normal turgor, no rashes or lesions noted. - INFECTION CONTROL TRAVEL OUTSIDE OF THE [place] IN LAST 30 DAYS: No Course - Re-evaluation Re-evalutation: Urinalysis was unremarkable. Patient reports significant improvement of her pain after administration of Toradol and Robaxin here in the emergency department. Patient will be discharged home in stable condition at this time. - Vital Signs Vital signs: Temp Pulse Resp BP Pulse Ox 98.2 F 57 L 16 188/60 H 98 01/30/19 03:59 01/30/19 03:59 01/30/19 03:59 01/30/19 03:59 01/30/19 03:59 Discharge - Discharge Clinical Impression: Sciatica Qualifiers: Laterality: right Qualified Code(s): M54.31 - Sciatica, right side Condition: Stable Disposition: HOME, SELF-CARE Additional Instructions: Sciatica Your symptoms suggest "sciatica." The pain of sciatica typically radiates down the leg. Numbness in the foot or calf may also occur. Sciatica is caused by irritation of the sciatic nerve or its branches. The irritation can be due to a herniated disk in the spine, swelling and inflammation in the muscles surrounding the sciatic nerve, or direct injury of the nerve itself. Most cases of sciatica will resolve with medical treatment. Bed rest is usually recommended initially. Surgery is only necessary when the condition will not improve with rest and antiinflammatory medication. Muscle relaxers are often given if muscle soreness is present. A CAT scan of the back may be performed if a herniated disk is suspected. Re-examination is necessary if you develop increasing numbness, localized weakness in the foot or ankle, or if the pain does not respond to rest. Please take ibuprofen 600 mg every 6 hours for pain. Use the muscle relaxers as prescribed. Follow-up with your primary care if not improving in the next 1 to 2 days. Return to the emergency department with any new or worsening symptoms. Prescriptions: Methocarbamol [Robaxin 750 mg Tablet] 750 mg PO Q4 #30 tablet Referrals: VILLASEÑOR,RONEN, PA-C [Primary Care Provider] - Follow up as needed
[2019-01-30 05:18] LABS: APPEARANCE,URINE CLEAR; BILIRUBIN,URINE NEGATIVE (NEGATIVE); COLOR,URINE YELLOW; GLUCOSE, URINE NEGATIVE (NEGATIVE); KETONES,URINE NEGATIVE (NEGATIVE); LEUKOCYTE ESTERASE,URINE SMALL (NEGATIVE); NITRITE,URINE NEGATIVE (NEGATIVE); PROTEIN,URINE 100 mg/dL (NEGATIVE); URINE SPECIFIC GRAVITY 1.009
[2019-01-30 06:07] VITALS: BP 166/54
== END 2019-01-30 06:07 | disposition home or self-care (01) ==
LOC: ER 03:54
DX: M54.31 Sciatica, right side (principal); M54.5 Low back pain; I10 Essential (primary) hypertension
CPT/HCPCS: 99283; 96372; 81001; J1885; A9270; J3490

== ENCOUNTER 2019-02-04 09:51 | Emergency (ER) | payer OTHER ==
[2019-02-04 11:14] LABS: ABSOLUTE BASOPHILS # (AUTO) 0.1 10^3/uL (0.0-0.2); ABSOLUTE EOSINOPHILS # (AUTO) 0.4 10^3/uL (0.0-0.6); ABSOLUTE MONOCYTES (AUTO) 0.4 10^3/uL (0.1-1.4); TOTAL CELLS COUNTED % (AUTO) 100 %
--- NOTE | 2019-02-04 11:23 | RADIOLOGY REPORT (SQ) ---
EXAM DESCRIPTION: CHEST SINGLE VIEW COMPLETED DATE/TIME: 02/04/2019 11:03 am REASON FOR STUDY: bed 5 db COMPARISON: 11/05/2018 NUMBER OF VIEWS: One view. TECHNIQUE: Single frontal radiographic view of the chest acquired. LIMITATIONS: None. FINDINGS: LUNGS AND PLEURA: No opacities, masses or pneumothorax. No pleural effusion. MEDIASTINUM AND HILAR STRUCTURES: No masses. Contour normal. HEART AND VASCULAR STRUCTURES: Heart enlarged without failure. Normal vasculature. BONES: No acute findings. HARDWARE: None in the chest. OTHER: No other significant finding. IMPRESSION: HEART ENLARGED WITHOUT FAILURE. NO OTHER SIGNIFICANT RADIOGRAPHIC FINDING IN THE CHEST. TECHNICAL DOCUMENTATION: JOB ID: [id number] [employer]- All Rights Reserved Reading location - IP/workstation name: [email or web address]
[2019-02-04 11:26] LABS: ABSOLUTE LYMPHOCYTES (AUTO) 1.1 10^3/uL (0.5-4.7); ABSOLUTE NEUT (AUTO) 5.3 10^3/uL (1.7-8.2); BASOPHILS % (AUTO) 1.2 % (0-2); EOSINOPHILS % (AUTO) 5.2 % (0-6); HEMATOCRIT 33.5 % (36.0-47.0); HEMOGLOBIN 11.1 g/dL (12.0-15.5); LYMPHOCYTES % (AUTO) 15.3 % (13-45); MEAN CORPUSCULAR HEMOGLOBIN 30.2 pg (27.0-33.4); MEAN CORPUSCULAR HGB CONC 33.1 g/dL (32.0-36.0); MEAN CORPUSCULAR VOLUME 91 fl (80-97); MONOCYTES % (AUTO) 4.9 % (3-13); PLATELET COUNT 215 10^3/uL (150-450); RED BLOOD COUNT 3.67 10^6/uL (3.72-5.28); SEGMENTED NEUTROPHILS % (AUTO) 73.4 % (42-78); WHITE BLOOD COUNT 7.2 10^3/uL (4.0-10.5)
[2019-02-04 11:33] LABS: ALBUMIN 4.2 g/dL (3.5-5.0); ALKALINE PHOSPHATASE 112 U/L (38-126); ANION GAP 12 (5-19); ASPARTATE AMINO TRANSFERASE 23 U/L (14-36); BILIRUBIN,DIRECT 0.5 mg/dL (0.0-0.4); BLOOD UREA NITROGEN 20 mg/dL (7-20); CALCIUM 9.2 mg/dL (8.4-10.2); CARBON DIOXIDE 20 mmol/L (22-30); CHLORIDE 112 mmol/L (98-107); CREATINE KINASE 52 U/L (30-135); GLUCOSE 146 mg/dL (75-110); POTASSIUM 4.5 mmol/L (3.6-5.0); TOTAL PROTEIN 6.9 g/dL (6.3-8.2)
[2019-02-04 11:44] LABS: CREATINE KINASE MB 1.23 ng/mL (<4.55)
[2019-02-04 11:49] LABS: TROPONIN I < 0.012 ng/mL
[2019-02-04 12:14] LABS: APPEARANCE,URINE CLEAR; BILIRUBIN,URINE NEGATIVE (NEGATIVE); COLOR,URINE YELLOW; GLUCOSE, URINE NEGATIVE (NEGATIVE); KETONES,URINE NEGATIVE (NEGATIVE); LEUKOCYTE ESTERASE,URINE SMALL (NEGATIVE); NITRITE,URINE NEGATIVE (NEGATIVE); PROTEIN,URINE 100 mg/dL (NEGATIVE); URINE SPECIFIC GRAVITY 1.016; UROBILINOGEN,URINE NEGATIVE mg/dL (<2.0)
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
--- NOTE | 2019-02-04 13:18 | ER Document Report ---
ED General - General Chief Complaint: Breathing Difficulty Stated Complaint: DIFFICULTY BREATHING Time Seen by Provider: 02/04/19 12:12 Primary Care Provider: RONEN VILLASEÑOR PA-C [Primary Care Provider] - Follow up as needed Mode of Arrival: Ambulatory Information source: Patient, Relative - daughter TRAVEL OUTSIDE OF THE [place] IN LAST 30 DAYS: No - HPI Patient complains to provider of: shortness of breath Onset: Last week Onset/Duration: Gradual Severity: Moderate Context: 73 year old female with poor hearing arrives here with complaints of shortness of breath. She was treated for right leg pain which she said starts in her buttocks traveling down her leg 02/01 - 3 days ago. Her right leg still hurts and feels swollen. No injury. She may have had some wheezing and did have some cough earlier. No fever or chills. No chest pain. Associated symptoms: Leg swelling Exacerbated by: Denies Relieved by: Other - cpap - Related Data Allergies/Adverse Reactions: kiwi Allergy (Verified 11/05/18 15:12) Facial edema and rash Past Medical History - General Information source: Patient - Social History Smoking Status: Never Smoker Chew tobacco use (# tins/day): No Frequency of alcohol use: None Drug Abuse: None Family History: Reviewed & Not Pertinent Patient has suicidal ideation: No Patient has homicidal ideation: No - Past Medical History Cardiac Medical History: Reports: Hx Hypercholesterolemia, Hx Hypertension Denies: Hx Atrial Fibrillation, Hx Congestive Heart Failure, Hx Coronary Artery Disease, Hx Heart Attack Pulmonary Medical History: Reports: Hx Pneumonia Denies: Hx Asthma, Hx Bronchitis, Hx COPD, Hx Tuberculosis Neurological Medical History: Denies: Hx Cerebrovascular Accident, Hx Migraine, Hx Seizures Endocrine Medical History: Reports: Hx Diabetes Mellitus Type 1, Hx Diabetes Mellitus Type 2 Renal/ Medical History: Denies: Hx Peritoneal Dialysis GI Medical History: Denies: Hx Hepatitis, Hx Hiatal Hernia, Hx Ulcer Musculoskeletal Medical History: Denies Hx Arthritis, Denies Hx Gout, Denies Hx Multiple Sclerosis, Denies Hx Muscular Dystrophy Psychiatric Medical History: Reports: Hx Depression Traumatic Medical History: Denies: Hx Traumatic Brain Injury Infectious Medical History: Denies: Hx Hepatitis Past Surgical History: Reports: Hx Bowel Surgery, Hx Breast Surgery, Hx Orthopedic Surgery - left arm, collar bone, TKR. Denies: Hx Appendectomy, Hx Section, Hx Cholecystectomy, Hx Coronary Artery Bypass Graft, Hx Gastric Bypass Surgery, Hx Herniorrhaphy, Hx Hysterectomy, Hx Mastectomy, Hx Open Heart Surgery, Hx Pacemaker, Hx Tonsillectomy, Hx Tubal Ligation - Immunizations Hx Diphtheria, Pertussis, Tetanus Vaccination: No - unsure Hx Pneumococcal Vaccination: 03/31/11 Review of Systems - Review of Systems Constitutional: No symptoms reported EENT: No symptoms reported Cardiovascular: No symptoms reported Respiratory: See HPI, Cough, Short of breath, Wheezing Gastrointestinal: No symptoms reported Genitourinary: No symptoms reported Female Genitourinary: No symptoms reported Musculoskeletal: See HPI, Leg swelling Skin: No symptoms reported Hematologic/Lymphatic: No symptoms reported Neurological/Psychological: No symptoms reported Physical Exam - Vital signs Vitals: Temp Pulse Resp BP Pulse Ox 97.9 F 58 L 24 H 178/70 H 96 02/04/19 09:57 02/04/19 09:57 02/04/19 09:57 02/04/19 09:57 02/04/19 09:57 Interpretation: Normal - General General appearance: Appears well, Alert - HEENT Head: Normocephalic, Atraumatic Eyes: Normal Pupils: PERRL Pharynx: Normal Neck: Normal - Respiratory Respiratory status: No respiratory distress Chest status: Nontender Breath sounds: Normal Chest palpation: Normal - Cardiovascular Rhythm: Regular Heart sounds: Normal auscultation Murmur: No - Abdominal Inspection: Normal Distension: No distension Bowel sounds: Normal Tenderness: Nontender Organomegaly: No organomegaly - Extremities General upper extremity: Normal inspection, Nontender, Normal color, Normal ROM, Normal temperature General lower extremity: Normal inspection, Nontender, Normal color, Normal ROM, Normal temperature, Normal weight bearing. No: Lee's sign - Neurological Neuro grossly intact: Yes Cognition: Normal Orientation: AAOx4 [place] Coma Scale Eye Opening: Spontaneous [place] Coma Scale Verbal: Oriented [place] Coma Scale Motor: Obeys Commands F[place] Coma Scale Total: 15 Speech: Normal Sensory: Normal - Psychological Associated symptoms: Normal affect, Normal mood - Skin Skin Temperature: Warm Skin Moisture: Dry Skin Color: Normal Course - Vital Signs Vital signs: Temp Pulse Resp BP Pulse Ox 97.9 F 58 L 18 178/70 H 97 02/04/19 09:57 02/04/19 09:57 02/04/19 15:00 02/04/19 09:57 02/04/19 15:00 - Laboratory Result Diagrams: 02/04/19 11:00 02/04/19 11:00 Laboratory results interpreted by me: 02/04/19 02/04/19 02/04/19 11:00 11:00 11:48 RBC 3.67 L Hgb 11.1 L Hct 33.5 L RDW 15.0 H Chloride 112 H Carbon Dioxide 20 L Creatinine 1.32 H Est GFR ( Amer) 48 L Est GFR (MDRD) Non-Af 39 L Glucose 146 H Direct Bilirubin 0.5 H Urine Protein 100 H Urine Blood SMALL H Ur Leukocyte Esterase SMALL H Discharge - Discharge Clinical Impression: Cough Dyspnea Qualifiers: Dyspnea type: shortness of breath Qualified Code(s): R06.02 - Shortness of breath Condition: Good Disposition: HOME, SELF-CARE Instructions: High Blood Pressure ([facility]), Urinary Tract Infection ([facility]) Additional Instructions: Follow up with your doctor and please return here for any problems or any concerns. Prescriptions: Cephalexin Monohydrate [Keflex 500 mg Capsule] 500 mg PO TID #30 capsule Albuterol Sulfate [Proair HFA Inhalation Aerosol 8.5 gm MDI] 2 puff IH Q4H PRN #1 mdi PRN Reason: Forms: Elevated Blood Pressure Referrals: RONEN VILLASEÑOR PA-C [Primary Care Provider] - Follow up as needed
--- NOTE | 2019-02-04 14:18 | RADIOLOGY REPORT (SQ) ---
EXAM DESCRIPTION: CTA CHEST COMPLETED DATE/TIME: 02/04/2019 1:46 pm REASON FOR STUDY: Shortness of breath COMPARISON: Chest x-ray 02/04/2019, CT angiogram chest 06/04/2011. TECHNIQUE: CT scan of the chest performed using helical scanning technique with dynamic intravenous contrast injection. Images reviewed with lung, soft tissue and bone windows. Reconstructed coronal and sagittal MPR images reviewed. Additional 3 dimensional post-processing performed to develop Maximal Intensity Projection images ([place] P). All images stored on PACS. All CT scanners at this facility use dose modulation, iterative reconstruction, and/or weight based d osing when appropriate to reduce radiation dose to as low as reasonably achievable (ALARA). [facility]: Dose Right [facility]: CareDose [facility]: Dose Right [facility]: Teradose 4D [facility]: Tapjoy CONTRAST TYPE AND DOSE: contrast/concentration: Isovue 350.00 mg/ml; Total Contrast Delivered: 61.0 ml; Total Saline Delivered: 79.0 ml Contrast bolus optimized for the pulmonary arteries. Not diagnostic for the aorta. RENAL FUNCTION: Creatinine 1.32 RADIATION DOSE: CT Rad equipment meets quality standard of care and radiation dose reduction techniq ues were employed. CTDIvol: 14.3 - 19.8 mGy. DLP: 494 mGy-cm. . LIMITATIONS: There is respiratory motion artifact. FINDINGS: LUNGS AND PLEURA: There is diffuse interstitial thickening, suggestive of interstitial margoth ma. There are small bilateral pleural effusions, right more than left. No pneumothorax. Soft tissu e nodule along the medial aspect of the right middle lobe has increased in the interval measuring 1.8 x 1.3 cm (axial image 62/118), previously measured 1.1 cm. AORTA AND GREAT VESSELS: No thoracic aortic aneurysm. The main pulmonary artery is dilated. HEART: The heart is enlarged. No pericardial effusion. No significant coronary artery calcifications . PULMONARY ARTERIES: No emboli visualized in the main pulmonary arteries or the segmental branches. HILAR AND MEDIASTINAL STRUCTURES: No identified masses or abnormal nodes. Calcified lymph nodes are noted at the mediastinum and right hilum. HARDWARE: None in the chest. UPPER ABDOMEN: There is reflux of intravenous contrast into the IVC and the hepatic veins. THYROID AND OTHER SOFT TISSUES: Heterogeneous appearance of the thyroid gland with bilateral calcific ations. BONES: Multilevel degenerative changes at the spine. 3D MIPS: Confirm above findings. IMPRESSION: 1. No pulmonary emboli. 2. Cardiomegaly. Interstitial edema. Small bilateral pleural effusions. Reflux of intravenous contra st into the IVC and the hepatic veins, may be seen with right heart failure. Dilated main pulmonary artery, please correlate for pulmonary arterial hypertension. 3. Interval increase in the soft tissue nodule at the right middle lobe, neoplasm cannot be excluded . PET/CT can be obtained for further evaluation. 4. Heterogeneous thyroid gland with bilateral calcifications. Nonemergent thyroid ultrasound can be obtained for further characterisation. COMMENT: Quality ID # [id number]: Final reports with documentation of one or more dose reduction techniques (e.g., Automated exposure control, adjustment of the mA and/or kV according to patient size, use of iterative reconstruction technique) TECHNICAL DOCUMENTATION: JOB ID: [id number] 2010 [employer]- All Rights Reserved Reading location - IP/workstation name: [email or web address]
--- NOTE | 2019-02-04 14:38 | RADIOLOGY REPORT (SQ) ---
EXAM DESCRIPTION: VENOUS UNILATERAL LOWER COMPLETED DATE/TIME: 02/04/2019 2:24 pm REASON FOR STUDY: right leg pain/ swelling COMPARISON: None. TECHNIQUE: Dynamic and static finn scale and color images acquired of the right leg venous system. S elected spectral images acquired with additional compression and augmentation maneuvers. The contrala teral common femoral vein and saphenofemoral junction were also imaged. Images stored on PACS. LIMITATIONS: Edema. FINDINGS: COMMON FEMORAL: Normal phasicity, compression and augmentation. No visualized echogenic ma terial on finn scale. No defects on color images. FEMORAL: Normal compression and augmentation. No visualized echogenic material on finn scale. No defe cts on color images. POPLITEAL: Normal compression, augmentation. No visualized echogenic material on finn scale. No defec ts on color images. CALF VESSELS: Poorly visualized due to edema. No evidence of thrombus in the posterior tibial veins. GSV and SSV: Normal compression, augmentation. No visualized echogenic material on finn scale. No def ects on color images. ANY DEEP VENOUS INSUFFICIENCY: Not evaluated. ANY EVIDENCE OF POPLITEAL CYST: No. OTHER: Soft tissue edema of the calf. CONTRALATERAL COMMON FEMORAL VEIN AND SAPHENOFEMORAL JUNCTION: Normal phasicity, compression and augmentation. No visualized echogenic material on finn scale. No de fects on color images. IMPRESSION: Examination of the calf is somewhat limited by soft tissue edema. Within this limitatio n, no evidence of deep venous thrombosis in the right lower extremity. TECHNICAL DOCUMENTATION: JOB ID: [id number] [employer]- All Rights Reserved Reading location - IP/workstation name: [email or web address]
[2019-02-04 16:13] VITALS: BP 148/62
--- NOTE | 2019-02-05 18:36 | EKG REPORT ---
SEVERITY:- ABNORMAL ECG - SINUS RHYTHM LEFT VENTRICULAR HYPERTROPHY ABNORMAL T, CONSIDER ISCHEMIA, ANTERIOR LEADS : Confirmed by: Yomi Diallo 05-Feb-2019 18:35:56
== END 2019-02-04 16:13 | disposition home or self-care (01) ==
LOC: ER 09:51
DX: R06.02 Shortness of breath (principal); R06.2 Wheezing; R05 Cough; M79.89 Other specified soft tissue disorders; M79.604 Pain in right leg; I10 Essential (primary) hypertension; E11.9 Type 2 diabetes mellitus without complications; Z87.01 Personal history of pneumonia (recurrent); Z91.018 Allergy to other foods
CPT/HCPCS: 36415; 71045; 71275; 80053; 81001; 82550; 82553; 84484; 85025; 93005; 93010; 93971; 99285

== ENCOUNTER 2019-02-26 10:16 | Emergency (ER) | payer OTHER ==
[2019-02-26 10:20] VITALS: BP 189/67
[2019-02-26] MEDS ORDERED: ASPIRIN 81 MG TABLET, CHEWABLE PO ONE (10:40)
--- NOTE | 2019-02-26 10:42 | ER Document Report ---
ED Medical Screen (RME) - General Chief Complaint: Chest Pain Stated Complaint: TROUBLE BREATHING Time Seen by Provider: 02/26/19 10:40 Primary Care Provider: RONEN VILLASEÑOR PA-C [Primary Care Provider] - Follow up as needed Mode of Arrival: Ambulatory Information source: Patient Notes: Patient presents complaining of right lower chest pain that started around 6:00 this morning. Patient states she has daily palpitations and that she performs breathing exercises to help resolve this. Patient states that the exercises did not help and the pain persisted as well as shortness of breath. Patient does complain of nausea and diarrhea. No fever. hx: Hypertension, dyslipidemia, cholesterol, peripheral edema, palpitations I have greeted and performed a rapid initial assessment of this patient. A comprehensive ED assessment and evaluation of the patient, analysis of test results and completion of the medical decision making process will be conducted by additional ED providers. TRAVEL OUTSIDE OF THE [place] IN LAST 30 DAYS: No - Related Data Allergies/Adverse Reactions: kiwi Allergy (Verified 02/26/19 10:34) Facial edema and rash Past Medical History - Past Medical History Cardiac Medical History: Reports: Hx Hypercholesterolemia, Hx Hypertension Denies: Hx Atrial Fibrillation, Hx Congestive Heart Failure, Hx Coronary Artery Disease, Hx Heart Attack Pulmonary Medical History: Reports: Hx Pneumonia Denies: Hx Asthma, Hx Bronchitis, Hx COPD, Hx Tuberculosis Neurological Medical History: Denies: Hx Cerebrovascular Accident, Hx Migraine, Hx Seizures Endocrine Medical History: Reports: Hx Diabetes Mellitus Type 1, Hx Diabetes Mellitus Type 2 Renal/ Medical History: Denies: Hx Peritoneal Dialysis GI Medical History: Denies: Hx Hepatitis, Hx Hiatal Hernia, Hx Ulcer Musculoskeltal Medical History: Denies Hx Arthritis, Denies Hx Gout, Denies Hx Multiple Sclerosis, Denies Hx Muscular Dystrophy Psychiatric Medical History: Reports: Hx Depression Traumatic Medical History: Denies: Hx Traumatic Brain Injury Infectious Medical History: Denies: Hx Hepatitis Past Surgical History: Reports: Hx Bowel Surgery, Hx Breast Surgery, Hx Orthopedic Surgery - left arm, collar bone, TKR. Denies: Hx Appendectomy, Hx Section, Hx Cholecystectomy, Hx Coronary Artery Bypass Graft, Hx Gastric Bypass Surgery, Hx Herniorrhaphy, Hx Hysterectomy, Hx Mastectomy, Hx Open Heart Surgery, Hx Pacemaker, Hx Tonsillectomy, Hx Tubal Ligation - Immunizations Hx Diphtheria, Pertussis, Tetanus Vaccination: No - unsure Physical Exam - Vital signs Vitals: Temp Pulse Resp BP Pulse Ox 98.2 F 55 L 22 H 189/67 H 95 02/26/19 10:19 02/26/19 10:02/26/19 10:02/26/19 10:02/26/19 10:19 - Respiratory Respiratory status: No respiratory distress Chest status: Tender Breath sounds: Normal Course - Vital Signs Vital signs: Temp Pulse Resp BP Pulse Ox 98.2 F 55 L 22 H 189/67 H 95 02/26/19 10:19 02/26/19 10:19 02/26/19 10:02/26/19 10:02/26/19 10:19 Doctor's Discharge - Discharge Referrals: RONEN VILLASEÑOR PA-C [Primary Care Provider] - Follow up as needed
--- NOTE | 2019-02-26 12:00 | RADIOLOGY REPORT (SQ) ---
EXAM DESCRIPTION: CHEST 2 VIEWS COMPLETED DATE/TIME: 02/26/2019 11:53 am REASON FOR STUDY: cp, palpitations, sob COMPARISON: None. NUMBER OF VIEWS: Two view. TECHNIQUE: Frontal and lateral radiographic views of the chest acquired. LIMITATIONS: None. FINDINGS: LUNGS AND PLEURA: No opacities, masses or pneumothorax. No pleural effusion. MEDIASTINUM AND HILAR STRUCTURES: No masses. No contour abnormalities. HEART AND VASCULAR STRUCTURES: Heart enlarged without failure. Aorta normal for age. BONES: No acute findings. HARDWARE: None in the chest. OTHER: No other significant finding. IMPRESSION: CARDIAC ENLARGEMENT WITHOUT FAILURE. TECHNICAL DOCUMENTATION: JOB ID: [id number] [employer]- All Rights Reserved Reading location - IP/workstation name: [email or web address]
[2019-02-26 12:20] LABS: ABSOLUTE BASOPHILS # (AUTO) 0.1 10^3/uL (0.0-0.2); ABSOLUTE EOSINOPHILS # (AUTO) 0.3 10^3/uL (0.0-0.6); ABSOLUTE LYMPHOCYTES (AUTO) 1.3 10^3/uL (0.5-4.7); ABSOLUTE MONOCYTES (AUTO) 0.4 10^3/uL (0.1-1.4); ABSOLUTE NEUT (AUTO) 5.2 10^3/uL (1.7-8.2); BASOPHILS % (AUTO) 0.9 % (0-2); EOSINOPHILS % (AUTO) 4.1 % (0-6); HEMATOCRIT 32.9 % (36.0-47.0); HEMOGLOBIN 11.1 g/dL (12.0-15.5); LYMPHOCYTES % (AUTO) 17.9 % (13-45); MEAN CORPUSCULAR HEMOGLOBIN 30.5 pg (27.0-33.4); MEAN CORPUSCULAR HGB CONC 33.6 g/dL (32.0-36.0); MEAN CORPUSCULAR VOLUME 91 fl (80-97); PLATELET COUNT 214 10^3/uL (150-450); RED BLOOD COUNT 3.63 10^6/uL (3.72-5.28); RED CELL DISTRIBUTION WIDTH 14.8 % (11.5-14.0); SEGMENTED NEUTROPHILS % (AUTO) 72.1 % (42-78); TOTAL CELLS COUNTED % (AUTO) 100 %; WHITE BLOOD COUNT 7.3 10^3/uL (4.0-10.5)
[2019-02-26 12:34] LABS: ALBUMIN 4.2 g/dL (3.5-5.0); ALKALINE PHOSPHATASE 104 U/L (38-126); ANION GAP 9 (5-19); ASPARTATE AMINO TRANSFERASE 22 U/L (14-36); BILIRUBIN,DIRECT 0.2 mg/dL (0.0-0.4); BLOOD UREA NITROGEN 11 mg/dL (7-20); CALCIUM 9.1 mg/dL (8.4-10.2); CARBON DIOXIDE 28 mmol/L (22-30); CHLORIDE 106 mmol/L (98-107); GLUCOSE 182 mg/dL (75-110)
[2019-02-26 12:44] LABS: TROPONIN I 0.026 ng/mL
--- NOTE | 2019-02-26 13:18 | RADIOLOGY REPORT (SQ) ---
EXAM DESCRIPTION: U/S ABDOMEN LIMITED W/O DOP COMPLETED DATE/TIME: 02/26/2019 1:04 pm REASON FOR STUDY: R lower chest pain COMPARISON: None. TECHNIQUE: Dynamic and static grayscale images acquired of the abdomen and recorded on PACS. Additio nal selected color Doppler and spectral images recorded. LIMITATIONS: None. FINDINGS: PANCREAS: No masses. Visualized pancreatic duct normal caliber. LIVER: No masses. Echotexture normal. LIVER VASCULATURE: Normal directional flow of the main portal vein and hepatic veins. GALLBLADDER: Distended. No obvious stones. ULTRASOUND-DETECTED ANDERSEN'S SIGN: Negative. INTRAHEPATIC DUCTS AND COMMON DUCT: CBD and intrahepatic ducts normal caliber. No filling defects. INFERIOR VENA CAVA: Normal flow. AORTA: No aneurysm. RIGHT KIDNEY: Normal size. Normal echogenicity. No solid or suspicious masses. No hydronephrosis. No calcifications. PERITONEAL AND RIGHT PLEURAL SPACE: No ascites or effusions. OTHER: No other significant findings. IMPRESSION: Distended gallbladder. No obvious stones. TECHNICAL DOCUMENTATION: JOB ID: [id number] [employer]- All Rights Reserved Reading location - IP/workstation name: [email or web address]
--- NOTE | 2019-02-26 14:10 | ER Document Report ---
ED General - General Chief Complaint: Shortness Of Breath Stated Complaint: TROUBLE BREATHING Time Seen by Provider: 02/26/19 10:40 Primary Care Provider: RONEN VILLASEÑOR PA-C [NURSE PRACTITIONER] - Follow up as needed Mode of Arrival: Ambulatory TRAVEL OUTSIDE OF THE [place] IN LAST 30 DAYS: No - HPI Notes: Patient is a 73-year-old female presents emergency department for evaluation of palpitations, difficulty breathing, and upper abdominal pain. Patient states to me that she has palpitations upon waking every morning. She states that her executive business coach pursued a significant work-up, no clear etiology was found. She states that she was given "breathing exercises" that usually help her symptoms. She states this morning they did not help. She felt more short of breath and more anxious as the palpitations persisted, so she presents to the ED for further evaluation. Patient also states she has nausea. She states that started after arrival here. She has not had any emesis. She denies any abdominal pain. Normal bowel movement yesterday. On further questioning the patient states she had a recent echocardiogram. She is her primary care pr ovider this week. She states the PA and her doctor's office started her on Lasix, 20 mg every other day. The patient has chronic lower extremity edema. She always has orthopnea, states has been going on for years. She did have some PND this morning. - Related Data Allergies/Adverse Reactions: kiwi Allergy (Verified 02/26/19 10:34) Facial edema and rash Past Medical History - General Information source: Patient - Social History Smoking Status: Never Smoker Family History: Reviewed & Not Pertinent Patient has suicidal ideation: No Patient has homicidal ideation: No - Past Medical History Cardiac Medical History: Reports: Hx Hypercholesterolemia, Hx Hypertension Denies: Hx Atrial Fibrillation, Hx Congestive Heart Failure, Hx Coronary Artery Disease, Hx Heart Attack Pulmonary Medical History: Reports: Hx Pneumonia Denies: Hx Asthma, Hx Bronchitis, Hx COPD, Hx Tuberculosis Neurological Medical History: Denies: Hx Cerebrovascular Accident, Hx Migraine, Hx Seizures Endocrine Medical History: Reports: Hx Diabetes Mellitus Type 2 Renal/ Medical History: Denies: Hx Peritoneal Dialysis GI Medical History: Denies: Hx Hepatitis, Hx Hiatal Hernia, Hx Ulcer Musculoskeletal Medical History: Denies Hx Arthritis, Denies Hx Gout, Denies Hx Multiple Sclerosis, Denies Hx Muscular Dystrophy Psychiatric Medical History: Reports: Hx Depression Traumatic Medical History: Denies: Hx Traumatic Brain Injury Infectious Medical History: Denies: Hx Hepatitis Past Surgical History: Reports: Hx Bowel Surgery, Hx Breast Surgery, Hx Orthopedic Surgery - left arm, collar bone, TKR. Denies: Hx Appendectomy, Hx Section, Hx Cholecystectomy, Hx Coronary Artery Bypass Graft, Hx G astric Bypass Surgery, Hx Herniorrhaphy, Hx Hysterectomy, Hx Mastectomy, Hx Open Heart Surgery, Hx Pacemaker, Hx Tonsillectomy, Hx Tubal Ligation - Immunizations Hx Diphtheria, Pertussis, Tetanus Vaccination: No - unsure Hx Pneumococcal Vaccination: 03/31/11 Review of Systems - Review of Systems Constitutional: No symptoms reported EENT: No symptoms reported Cardiovascular: See HPI Respiratory: See HPI Gastrointestinal: See HPI Genitourinary: No symptoms reported Musculoskeletal: No symptoms reported Skin: No symptoms reported Neurological/Psychological: No symptoms reported Physical Exam - Vital signs Vitals: Temp Pulse Resp BP Pulse Ox 98.2 F 55 L 22 H 189/67 H 95 02/26/19 10:19 02/26/19 10:19 02/26/19 10:19 02/26/19 10:19 02/26/19 10:19 - Notes Notes: Vital signs reviewed, please refer to chart. Head is normocephalic, atraumatic. Pupils equal round, reactive to light. Neck is supple without meningismus. Heart is regular rate and rhythm. Lungs are clear to auscultation bilaterally. Abdomen is soft, nontender, normoactive bowel sounds throughout. Extremities without cyanosis, clubbing. Chronic appearing lymphedema to bilateral lower extremities without pitting. Posterior calves are nontender. Peripheral pulses are equal. Skin is warm and dry. Patient is awake, alert, neurological exam is nonfocal. Course - Re-evaluation Re-evalutation: 02/26/19 14:06 Patient presents emergency department for evaluation of palpitations, associated difficulty breathing, and abdominal pain. Her abdominal exam is unremarkable. Laboratory investigations revealed a mild elevation of her proBNP. This patient had a negative stress test 6 months ago. She had a recent echocardiogram which was "normal" according to her. Her telemetry actually revealed mild bradycardia. She was just started on Lasix 20 milligrams every other day. Regardless, she is oxygenating well. She has no pulmonary edema on her chest x- ray. She does not have any significant peripheral pitting edema at this time. She was just started on Lasix, and is extremely low dose every other day. I will increase her Lasix to 20 mg daily. We will also start her on potassium in an effort to offset any potential hypokalemia secondary to this Lasix. I cannot find a clear etiology of her abdominal pain. Ultrasound was unremarkable. Again laboratory investigations negative. In light of a negative stress test, unremarkable echocardiogram, I will go ahead and send the patient home. She is to follow-up with primary care as well as cardiology this week, return to the ED with worsening or new concerning symptoms of any sort. 02/26/19 15:25 Called back to the room to evaluate patient as she had continued nausea. She was treated here with Zofran. I went back and evaluated the patient. Her abdomen remained soft. Vitals unremarkable. We will send her home with Zofran. She is to follow-up with her primary doctor and executive business coach tomorrow. - Vital Signs Vital signs: Temp Pulse Resp BP Pulse Ox 98.2 F 55 L 22 H 189/67 H 98 02/26/19 10:19 02/26/19 10:19 02/26/19 10:19 02/26/19 10:02/26/19 12:13 - Laboratory Result Diagrams: 02/26/19 12:02 02/26/19 12:02 Laboratory results interpreted by me: 02/26/19 02/26/19 02/26/19 12:02 12:02 12:02 RBC 3.63 L Hgb 11.1 L Hct 32.9 L RDW 14.8 H Est GFR (MDRD) Non-Af 59 L Glucose 182 H NT-Pro-B Natriuret Pep 2020 H Discharge - Discharge Clinical Impression: Palpitations Condition: Stable Disposition: HOME, SELF-CARE Instructions: Palpitations (Irregular or Rapid Heartrate) (REPLACED BY [facility]) Additional Instructions: Increase your Lasix to 20 mg daily (that is one half tab every day). Start potassium daily as well. Follow-up with your primary care physician as well as your executive business coach this week. Return to the emergency department with worsening or new concerning symptoms of any sort. Prescriptions: Potassium Chloride 10 meq PO DAILY #14 capsule.er Referrals: RONEN VILLASEÑOR PA-C [NURSE PRACTITIONER] - Follow up as needed
[2019-02-26] MEDS ORDERED: ONDANSETRON 4 MG TAB.RAPDIS PO ONE (15:24)
[2019-02-26] MEDS ORDERED: ONDANSETRON ODT 4 MG TAB (6 TAB/ER DISP) PO PRN (15:24)
--- NOTE | 2019-02-27 00:46 | EKG REPORT ---
SEVERITY:- ABNORMAL ECG - SINUS RHYTHM LEFT ANTERIOR FASCICULAR BLOCK PROBABLE LEFT VENTRICULAR HYPERTROPHY : Confirmed by: Yomi Diallo 27-Feb-2019 00:45:33
== END 2019-02-26 15:38 | disposition home or self-care (01) ==
LOC: ER 10:16
DX: R00.2 Palpitations (principal); R06.02 Shortness of breath; R10.10 Upper abdominal pain, unspecified; F41.9 Anxiety disorder, unspecified; Z79.899 Other long term (current) drug therapy; I10 Essential (primary) hypertension; E11.9 Type 2 diabetes mellitus without complications
CPT/HCPCS: 93005; 99285; 36415; 83690; 83735; 84443; 85025; 80053; 84484; 83880; 71046; 76705; 93010; A9270 ×3; S0119

== ENCOUNTER → 2019-04-21 | Outpatient (CLI) | payer OTHER ==
--- NOTE | 2019-04-21 13:56 | RADIOLOGY REPORT (SQ) ---
EXAM DESCRIPTION: CT CHEST WITHOUT COMPLETED DATE/TIME: 04/21/2019 10:14 am REASON FOR STUDY: R91.1 SOLITARY PULMONARY NODULE, Z86.79 PERSONAL HISTORY OF OTHER DISEASES R91.1 SOLITARY PULMONARY NODULE Z86.79 PERSONAL HISTORY OF OTHER DISEASES OF THE CIRCULATORY Z87.09 PERSO NAL HISTORY OF OTHER DISEASES OF THE RESPIRATORY COMPARISON: CTs of the chest with contrast and 02/04/2019 and 06/04/2011 TECHNIQUE: CT scan performed of the chest without intravenous contrast. Images reviewed with lung, soft tissue and bone windows. Reconstructed coronal and sagittal MPR images reviewed. All images st ored on PACS. All CT scanners at this facility use dose modulation, iterative reconstruction, and/or weight based d osing when appropriate to reduce radiation dose to as low as reasonably achievable (ALARA). [facility]: Dose Right [facility]: CareDose [facility]: Dose Right [facility]: Teradose 4D [facility]: [employer] RADIATION DOSE: CT Rad equipment meets quality standard of care and radiation dose reduction techniq ues were employed. CTDIvol: 5.0 mGy. DLP: 181 mGy-cm. mGy. LIMITATIONS: No technical limitations. FINDINGS: LUNGS AND PLEURA: The trachea and main bronchi are patent. There are bilateral calcified and noncalcified pulmonary nodules that range in size from less than 1 mm to 6 mm in diameter ; direc t comparison with the CT from 02/04/2019 is limited due to the interstitial findings present on that pr ior CT, however for the most part the nodules have been present since 06/04/2011 and have demonstrated incremental growth. The elongated lobulated area along the paramediastinal pleural surface of the ri ght hemithorax (it extends from images 48 to 77 and it measures up to 12 mm in thickness) has also be en presents since 06/04/2011. There is no consolidation or ground-glass opacification. There is no pl eural effusion or pneumothorax. HILAR AND MEDIASTINAL STRUCTURES: There are calcified right hilar lymph nodes. There is no enlarged mediastinal adenopathy. HEART AND VASCULAR STRUCTURES: Evaluation is limited due to the absence of intravenous contrast. The ascending thoracic aorta measures up to 3.8 cm in transverse diameter. The heart is enlarged. The main pulmonary artery is dilated and it measures up to 3.3 cm in transverse diameter - correlate clin ically for pulmonary hypertension. There is mild to moderate atherosclerotic calcification of the ao rtic valve leaflets. There is no pericardial effusion. UPPER ABDOMEN: There is a 1.1 x 0.7 cm right adrenal nodule that is stable from 06/04/2011. THYROID AND OTHER SOFT TISSUES: Macro-calcifications in the thyroid gland. There is no enlarged supr aclavicular or axillary adenopathy. BONES: The sclerosis and irregularity of the endplates of the T4, T5, T6, T7 and T8 vertebral bodies is unchanged. There is no acute fracture. HARDWARE: None in the chest. OTHER: No other findings. IMPRESSION: 1. As stated above, there are bilateral calcified and noncalcified nodules that range in size from less than 1 mm to 6 mm in diameter ; direct comparison with the CT from 02/04/2019 is limite d due to the interstitial findings present on that prior CT, however for the most part the nodules hunter ve been present since to 06/04/2011 and have demonstrated incremental growth. The elongated lobulated a elvis along the paramediastinal pleural surface of the right hemithorax (it extends from images 48 to 7 7 and it measures up to 12 mm in thickness) has also been presents since 06/04/2011. Overall, the rela tive stability of the findings suggests an indolent process - if clinically indicated annual follow-u p CTs could be obtained to ensure continued stability of the findings. 2. Other findings as detailed above. TECHNICAL DOCUMENTATION: JOB ID: [id number] Quality ID # 436: Final reports with documentation of one or more dose reduction techniques (e.g., Au tomated exposure control, adjustment of the mA and/or kV according to patient size, use of iterative reconstruction technique) 2010 [employer]- All Rights Reserved Reading location - IP/workstation name: [email or web address]-
== END ==
LOC: RAD 09:53
PROVIDERS: ATTEND Internal Medicine Critical Care Medicine
DX: R91.1 Solitary pulmonary nodule (principal); Z86.79 Personal history of other diseases of the circulatory system; Z87.09 Personal history of other diseases of the respiratory system
CPT/HCPCS: 71250

== ENCOUNTER → 2019-07-07 | Outpatient (CLI) | payer OTHER ==
--- NOTE | 2019-07-07 14:08 | WOMENS IMAGING REPORT ---
EXAM DESCRIPTION: 3D SCREENING MAMMO BILAT COMPLETED DATE/TIME: 07/07/2019 11:21 am REASON FOR STUDY: Z12.31 ENCOUNTER FOR SCREENING MAMMOGRAM FOR MALIGNANT NEOPLASM OF BREAST Z12.31 ENCNTR SCREEN MAMMOGRAM FOR MALIGNANT NEOPLASM OF MARTHA COMPARISON: Multiple since 2009 EXAM PARAMETERS: Standard craniocaudal and mediolateral oblique views of each breast recorded using digital acquisition and breast tomosynthesis. Read with the assistance of CAD. .[facility] - [employer] Version 9.2 LIMITATIONS: None. FINDINGS: Findings present which are benign by mammographic criteria. No suspicious masses, calcific ations or architectural distortion. Pertinent benign findings: Multiple benign subcentimeter breast masses, stable. Multiple coarse dens e benign calcifications bilaterally. Benign mammographic findings may include one or more of the following: Smooth masses, popcorn/rim/coa rse calcifications, asymmetries, post-procedure changes, and lesions with long-standing stability. IMPRESSION: BENIGN MAMMOGRAPHIC FINDINGS. BIRADS 2 BREAST DENSITY: b. There are scattered areas of fibroglandular density. BIRAD: ASSESSMENT: 2 BENIGN FINDING(S) RECOMMENDATION: ROUTINE SCREENING Please continue yearly bilateral screening mammography/tomosynthesis in July 2020 COMMENT: The patient has been notified of the results by letter per [place] requirements. Additional no tification policies are in place for contacting patient with suspicious or incomplete findings. Quality ID #225: The [employer] [place] recommends an annual screening mammogram for women aged 40 years or over. This facility utilizes a reminder system to ensure that all patients receive reminder letters, and/or direct phone calls for appointments. This includes reminders for routine scr eening mammograms, diagnostic mammograms, or other Breast Imaging Interventions when appropriate. Th is patient will be placed in the appropriate reminder system. TECHNICAL DOCUMENTATION: FINDING NUMBER: (1) ASSESSMENT: (1) JOB ID: [id number] 1267 [employer]- All Rights Reserved Reading location - IP/workstation name: [email or web address]
== END ==
LOC: WI 10:35
PROVIDERS: ATTEND Physician Assistant
DX: Z12.31 Encounter for screening mammogram for malignant neoplasm of breast (principal)
CPT/HCPCS: 77063; 77067

== ENCOUNTER → 2020-02-22 | Outpatient (CLI) | payer OTHER ==
--- NOTE | 2020-02-22 15:33 | RADIOLOGY REPORT (SQ) ---
EXAM DESCRIPTION: CT CHEST WITHOUT IMAGES COMPLETED DATE/TIME: 02/22/2020 1:52 pm REASON FOR STUDY: R91.8 OTHER NONSPECIFIC ABNORMAL FINDING OF LUNG FIELD R91.8 OTHER NONSPECIFIC AB NORMAL FINDING OF LUNG FIELD COMPARISON: Multiple, most recent 04/21/2019. TECHNIQUE: CT scan performed of the chest without intravenous contrast. Images reviewed with lung, soft tissue and bone windows. Reconstructed coronal and sagittal MPR images reviewed. All images st ored on PACS. All CT scanners at this facility use dose modulation, iterative reconstruction, and/or weight based d osing when appropriate to reduce radiation dose to as low as reasonably achievable (ALARA). [facility]: Dose Right [facility]: CareDose [facility]: Dose Right [facility]: Teradose 4D [facility]: [employer] RADIATION DOSE: CT Rad equipment meets quality standard of care and radiation dose reduction techniq ues were employed. CTDIvol: 4.5 mGy. DLP: 161 mGy-cm. mGy. LIMITATIONS: No technical limitations. FINDINGS: LUNGS AND PLEURA: Scattered ground-glass and part solid nodules in both lungs measuring up to 12 by 18 mm in the middle lobe on image 69 are all stable. No enlarging nodules or infiltrate. HILAR AND MEDIASTINAL STRUCTURES: Calcified right hilar nodes. No pathologic lymph nodes. HEART AND VASCULAR STRUCTURES: No aneurysm. No pericardial effusion. UPPER ABDOMEN: Stable subcentimeter right adrenal nodule. THYROID AND OTHER SOFT TISSUES: No masses. No adenopathy. BONES: No significant finding. HARDWARE: None in the chest. OTHER: No other significant findings. IMPRESSION: Stable pulmonary nodules. TECHNICAL DOCUMENTATION: JOB ID: [id number] Quality ID # 436: Final reports with documentation of one or more dose reduction techniques (e.g., Au tomated exposure control, adjustment of the mA and/or kV according to patient size, use of iterative reconstruction technique) 2010 [employer]- All Rights Reserved Reading location - IP/workstation name: [email or web address]
== END ==
LOC: RAD 13:22
PROVIDERS: ATTEND Internal Medicine Pulmonary Disease
DX: R91.8 Other nonspecific abnormal finding of lung field (principal)
CPT/HCPCS: 71250

== ENCOUNTER → 2020-03-25 | Outpatient (CLI) | payer OTHER ==
[2020-03-25 14:08] LABS: HEMATOCRIT 32.1 % (36.0-47.0); HEMOGLOBIN 10.9 g/dL (12.0-15.5); MEAN CORPUSCULAR HEMOGLOBIN 30.6 pg (27.0-33.4); MEAN CORPUSCULAR HGB CONC 34.1 g/dL (32.0-36.0); MEAN CORPUSCULAR VOLUME 90 fl (80-97); PLATELET COUNT 185 10^3/uL (150-450); RED BLOOD COUNT 3.58 10^6/uL (3.72-5.28); RED CELL DISTRIBUTION WIDTH 14.2 % (11.5-14.0); WHITE BLOOD COUNT 5.7 10^3/uL (4.0-10.5)
[2020-03-25 14:34] LABS: ALBUMIN 4.2 g/dL (3.5-5.0); ANION GAP 10 (5-19); BLOOD UREA NITROGEN 21 mg/dL (7-20); CARBON DIOXIDE 25 mmol/L (22-30); CHLORIDE 106 mmol/L (98-107); GLUCOSE 216 mg/dL (75-110); PHOSPHORUS 3.6 mg/dL (2.5-4.5); POTASSIUM 4.8 mmol/L (3.6-5.0)
[2020-03-25 14:50] LABS: APPEARANCE,URINE CLOUDY; BILIRUBIN,URINE NEGATIVE (NEGATIVE); COLOR,URINE YELLOW; GLUCOSE, URINE NEGATIVE (NEGATIVE); KETONES,URINE NEGATIVE (NEGATIVE); LEUKOCYTE ESTERASE,URINE LARGE (NEGATIVE); NITRITE,URINE NEGATIVE (NEGATIVE); PROTEIN,URINE 30 mg/dL (NEGATIVE); URINE SPECIFIC GRAVITY 1.011; UROBILINOGEN,URINE NEGATIVE mg/dL (<2.0)
[2020-03-25 15:35] LABS: UR PRO/CREAT RATIO RESULT 0.3 mg/mg (0.0-0.2); URINE CREATININE 81.1 mg/dL (15-278); URINE PROTEIN 25.1 mg/dL (<12)
== END ==
LOC: OD 13:44
PROVIDERS: ATTEND Physician Assistant Medical
DX: N18.30 Chronic kidney disease, stage 3 unspecified (principal)
CPT/HCPCS: 36415; 80069; 81001; 82570; 83970; 84156; 85027

== ENCOUNTER 2020-04-10 00:53 | Emergency (ER) | payer OTHER ==
[2020-04-10 02:38] LABS: ABSOLUTE EOSINOPHILS # (AUTO) 0.3 10^3/uL (0.0-0.6); ABSOLUTE LYMPHOCYTES (AUTO) 2.1 10^3/uL (0.5-4.7); ABSOLUTE MONOCYTES (AUTO) 0.5 10^3/uL (0.1-1.4); ABSOLUTE NEUT (AUTO) 4.3 10^3/uL (1.7-8.2); BASOPHILS % (AUTO) 0.7 % (0-2); HEMOGLOBIN 10.5 g/dL (12.0-15.5); LYMPHOCYTES % (AUTO) 29.4 % (13-45); MEAN CORPUSCULAR HEMOGLOBIN 30.9 pg (27.0-33.4); MEAN CORPUSCULAR VOLUME 91 fl (80-97); MONOCYTES % (AUTO) 6.9 % (3-13); PLATELET COUNT 198 10^3/uL (150-450); RED CELL DISTRIBUTION WIDTH 14.6 % (11.5-14.0); TOTAL CELLS COUNTED % (AUTO) 100 %; WHITE BLOOD COUNT 7.3 10^3/uL (4.0-10.5)
[2020-04-10 02:43] LABS: APPEARANCE,URINE CLOUDY; BILIRUBIN,URINE NEGATIVE (NEGATIVE); COLOR,URINE YELLOW; GLUCOSE, URINE 50 mg/dL (NEGATIVE); KETONES,URINE NEGATIVE (NEGATIVE); LEUKOCYTE ESTERASE,URINE LARGE (NEGATIVE); NITRITE,URINE NEGATIVE (NEGATIVE); PROTEIN,URINE 30 mg/dL (NEGATIVE); URINE SPECIFIC GRAVITY 1.011
[2020-04-10 02:59] LABS: ALKALINE PHOSPHATASE 116 U/L (38-126); ANION GAP 11 (5-19); ASPARTATE AMINO TRANSFERASE 20 U/L (14-36); BILIRUBIN,DIRECT 0.2 mg/dL (0.0-0.4); BILIRUBIN,TOTAL 0.8 mg/dL (0.2-1.3); BLOOD UREA NITROGEN 17 mg/dL (7-20); CARBON DIOXIDE 25 mmol/L (22-30); CHLORIDE 105 mmol/L (98-107); GLUCOSE 238 mg/dL (75-110); TOTAL PROTEIN 6.5 g/dL (6.3-8.2)
[2020-04-10] MEDS ORDERED: NORMAL SALINE 1000 ML 1,000 ML IV ONE (08:25)
[2020-04-10] MEDS ORDERED: CEFTRIAXONE 1 GM/D5W RTU 1 GM/50 ML RTUPB IV ONE (08:25)
--- NOTE | 2020-04-10 09:00 | ER Document Report ---
ED Blood Sugar Problem - General Chief Complaint: High Blood Sugar Stated Complaint: REPORTS HIGH BLOOS SUGAR Time Seen by Provider: 04/10/20 08:12 Primary Care Provider: ILANA VILLASEÑOR MD [Primary Care Provider] - Follow up as needed Notes: HPI: 74-year-old female with past medical history as recorded including diabetes who noticed a blood sugar of 1 400 with some bilateral blurry vision yesterday. This prompted her to come to the emergency department. Patient was recently diagnosed with urinary tract infection yesterday and only took one course of antibiotics. No chest pain, cough, fevers, vomiting, abdominal pain, flank pain. Patient does not take any insulin. Patient follows a local primary care physician here. Blood sugar when she arrived as recorded. ROS: See HPI All other review of systems reviewed and otherwise negative Reviewed vital signs and nursing note as charted by RN. PHYSICAL EXAM: CONSTITUTIONAL: Alert and oriented and responds appropriately to questions. Well-appearing; well-nourished HEAD: Normocephalic; atraumatic EYES: PERRL; no nystagmus, sclerae non-icteric ENT: Normal nose; no rhinorrhea; moist mucous membranes; pharynx without lesions noted NECK: Supple without meningismus; non-tender; no cervical lymphadenopathy, no masses CARD: Regular rate and rhythm; no murmurs; symmetric distal pulses RESP: Normal chest excursion without splinting or tachypnea; breath sounds clear and equal bilaterally ABD/GI: Normal bowel sounds; non-distended; soft, non-tender BACK: The back appears normal and is non-tender to palpation EXT: Normal ROM in all joints; non-tender to palpation; no edema SKIN: No acute lesions noted NEURO: CN 2-12 intact; 5/5 bilateral upper and lower extremity strength with sensation intact to light touch PSYCH: The patient's mood and manner are appropriate. Grooming and personal hygiene are appropriate. TRAVEL OUTSIDE OF THE [place] IN LAST 30 DAYS: No - Related Data Allergies/Adverse Reactions: kiwi Allergy (Verified 04/10/20 01:23) Facial edema and rash Past Medical History - Social History Smoking Status: Never Smoker Frequency of alcohol use: None Drug Abuse: None Family History: Reviewed & Not Pertinent - Past Medical History Cardiac Medical History: Reports: Hx Hypercholesterolemia, Hx Hypertension Denies: Hx Atrial Fibrillation, Hx Congestive Heart Failure, Hx Coronary Artery Disease, Hx Heart Attack Pulmonary Medical History: Reports: Hx Pneumonia Denies: Hx Asthma, Hx Bronchitis, Hx COPD, Hx Tuberculosis Neurological Medical History: Denies: Hx Cerebrovascular Accident, Hx Migraine, Hx Seizures Endocrine Medical History: Reports: Hx Diabetes Mellitus Type 1, Hx Diabetes Mellitus Type 2 Renal/ Medical History: Denies: Hx Peritoneal Dialysis GI Medical History: Denies: Hx Hepatitis, Hx Hiatal Hernia, Hx Ulcer Musculoskeletal Medical History: Denies Hx Arthritis, Denies Hx Gout, Denies Hx Multiple Sclerosis, Denies Hx Muscular Dystrophy Psychiatric Medical History: Reports: Hx Depression Traumatic Medical History: Denies: Hx Traumatic Brain Injury Infectious Medical History: Denies: Hx Hepatitis Past Surgical History: Reports: Hx Bowel Surgery, Hx Breast Surgery, Hx Orthopedic Surgery - left arm, collar bone, TKR. Denies: Hx Appendectomy, Hx Section, Hx Cholecystectomy, Hx Coronary Artery Bypass Graft, Hx Gastric Bypass Surgery, Hx Herniorrhaphy, Hx Hysterectomy, Hx Mastectomy, Hx Open Heart Surgery, Hx Pacemaker, Hx Tonsillectomy, Hx Tubal Ligation - Immunizations Hx Diphtheria, Pertussis, Tetanus Vaccination: No - unsure Hx Pneumococcal Vaccination: 03/31/11 Physical Exam - Vital signs Vitals: Temp Pulse Resp BP Pulse Ox 98.6 F 80 17 148/71 H 96 04/10/20 01:03 04/10/20 01:03 04/10/20 01:03 04/10/20 01:03 04/10/20 01:03 Course - Re-evaluation Re-evalutation: Given the above history and physical, labs and urine analysis were ordered. Patient has no abdominal pain. Patient's blurry vision was bilateral eyes without any headache and was very transient lasting only "seconds". I do believe acute CVA, subarachnoid hemorrhage, temporal arteritis, acute angle- closure glaucoma to be unlikely. Blood sugar repeated as recorded. 04/10/20 08:58 Labs as recorded. No signs of obvious dehydration. Blood sugar as recorded here. Urine analysis as recorded here. Urine culture has been sent. I did call and speak directly to the primary care physician Dr. Fox. He is in agreement with the plan of fluids and antibiotics and he will see the patient in an expedited manner. - Vital Signs Vital signs: Temp Pulse Resp BP Pulse Ox 98.6 F 80 17 136/66 H 96 04/10/20 01:03 04/10/20 06:20 04/10/20 01:03 04/10/20 06:20 04/10/20 06:20 - Laboratory Result Diagrams: 04/10/20 02:05 04/10/20 02:05 Laboratory results interpreted by me: 04/10/20 04/10/20 04/10/20 01:31 02:05 02:05 RBC 3.40 L Hgb 10.5 L Hct 31.0 L RDW 14.6 H Est GFR ( Amer) 54 L Est GFR (MDRD) Non-Af 45 L Glucose 238 H POC Glucose 257 H Urine Protein Urine Glucose (UA) Urine Blood Urine Urobilinogen Ur Leukocyte Esterase 04/10/20 02:05 RBC Hgb Hct RDW Est GFR ( Amer) Est GFR (MDRD) Non-Af Glucose POC Glucose Urine Protein 30 H Urine Glucose (UA) 50 H Urine Blood MODERATE H Urine Urobilinogen 2.0 H Ur Leukocyte Esterase LARGE H Discharge - Discharge Clinical Impression: Hyperglycemia UTI (urinary tract infection) Qualifiers: Urinary tract infection type: site unspecified Hematuria presence: with hematuria Qualified Code(s): N39.0 - Urinary tract infection, site not specified; R31.9 - Hematuria, unspecified Condition: Good Disposition: HOME, SELF-CARE Additional Instructions: Come back immediately with any fevers, vomiting, pain, return of hazy vision, weakness or numbness, or any other acute problems. Please make sure that you take the antibiotics as prescribed and please follow-up with your primary care physician as we have helped expedite for you. Referrals: ILANA VILLASEÑOR MD [Primary Care Provider] - Follow up as needed
[2020-04-10 10:17] VITALS: BP 138/70
--- OUTSIDE RECORDS SUMMARY | 2020-04-11 17:59 | XMS REPORT ---
:1945 Author Organization [facility] Address [facility] [address] [place] [address] Care Team Providers Name Role Phone Ashkan CALLAWAY Attending Clinician Unavailable Anurga Attending Clinician Unavailable Ashkan CALLAWAY Admitting Clinician Unavailable Allergies, Adverse Reactions, Alerts This patient has no known allergies or adverse reactions. Medications Ordered Filled Start Stop Current Ordering Indication Dosage Frequency Signature Comments Components Medication Medication Date Date Medication? Clinician (SIG) Name Name Celecoxib Yes Solis Barlow 200 Twice Per (Celebrex*) 09-04 Pa-C Ferrera Day 200 Mg Cap 00:00: 00 Docusate Yes Solis Barlow 100 Twice Per Sodium 100 09-04 Pa-C Ferrera Day Mg Capsule 00:00: 00 Fondaparinu Yes Solis Barlow 2.5 Daily@08 x Sodium 09-04 Pa-C Ferrera 2.5 Mg/0.5 00:00: Ml Syringe 00 Tramadol Yes Solis Barlow 50 Every 6-8 Hcl (Ultram 09-04 Pa-C Ferrera Hours Ir Tab*) 50 00:00: Mg Tab 00 Aspirin Yes 81 At Bedtime (Ecotrin*) 81 Mg Tabec Cholecalcif Yes 1000 Once Per matilde Day (Vitamin D3*) 2,000 Unit Tablet Glimepiride Yes 3 At Bedtime (Amaryl*) 2 Mg Tab Metoprolol Yes 50 Once Per Succinate Day (Toprol Xl*) 50 Mg Tab.er.24h Omeprazole Yes 20 At Bedtime (Prilosec*) 20 Mg Capcr Simvastatin Yes 20 Once Per (Zocor*) 20 Day At Mg Tablet Bedtime Problems Condition Condition Condition Status Onset Resolution Last Treatin g Comments Name Details Category Date Date Treatment Clinician Date Status post Status Problem Active total left post total 09-01 knee knee 09:05: replacement replacemen 00 t, left Status Problem Active post total 09-01 knee 09:05: replacemen 00 t, left Procedures Procedure Date / Time Performed Performing Clinician Alfonso mcfadden Total replacement of left knee 2016-09-01 00:00:00 JANELL CALLAWAY joint OFFICE OUTPATIENT VISIT 25 MINUTES 2015-09-03 15:58:00 OFFICE OUTPATIENT VISIT 25 MINUTES 2015-01-23 07:56:00 Results Test Description Test Time Test Comments Text Results Atomic Results Result Comments Blood hemoglobin measurement (mass/volume) 2016-09-04 04:17:00 Test Item Value Reference Range Comments Blood hemoglobin measurement (mass/volume) (test code = 718-7) 8 .8 11.4-14.4 Automated blood hematocrit (volume fraction)2016-09-04 04:17:00 Test Item Value Reference Range Comments Automated blood hematocrit (volume fraction) (test 26.6 33.3-41.4 code = 4544-3) Serum sodium [id number] 04:00:00 Test Item Value Reference Range Comments Serum sodium measurement (test code = 2951-2) 138 13 7-145 Serum potassium gdxfsadbnxn5365-82-99 04:00:00 Test Item Value Reference Range Comments Serum potassium measurement (test code = 2823-3) 5.7 3.5-5.1 Chloride ser/bnrc8483-76-59 04:00:00 Test Item Value Reference Range Comments Chloride ser/plas (test code = 2075-0) 101 98-107 Carbon dioxide sgvryjtnjvg4421-73-72 04:00:00 Test Item Value Reference Range Comments Carbon dioxide measurement (test code = 95875148) 24 22-30 Serum or plasma glucose measurement (mass/volume)2016-09-02 04:00:00 Test Item Value Reference Range Comments Serum or plasma glucose measurement (mass/volume) 167 74-106 (test code = 2345-7) Serum or plasma urea nitrogen measurement (mass/volume)2016-09-02 04:00:00 Test Item Value Reference Range Comments Serum or plasma urea nitrogen measurement 26 7-17 (mass/volume) (test code = 3094-0) Serum or plasma creatinine measurement (moles/volume)2016-09-02 04:00:00 Test Item Value Reference Range Comments Serum or plasma creatinine measurement (moles/volume) 1.49 0.52-1.04 (test code = 74700-1) Blood anion wal6059-70-94 04:00:00 Test Item Value Reference Range Comments Blood anion gap (test code = 88016-2) 19 7-16 Serum or plasma calcium measurement (mass/volume)2016-09-02 04:00:00 Test Item Value Reference Range Comments Serum or plasma calcium measurement (mass/volume) 9.3 8.4-10.2 (test code = 21244-5) [id number] 09:48:[address] [address] Patient: CECY RUIZ : 1945 Sex: F Address: [address] [place] [address] [place] [address] [id number] #: [id number] [facility] SEQ #: [id number] Location: [facility] Room #: [facility] Ordering: JANELL CALLAWAY MD Diagnosis: [id number]/[id number] ------ KNEE LEFT 2 VIEWS Clinical Information: [id number]. Postop left knee arthroplasty. Postoperative radiographs demonstrate a left knee prosthesis projected in in good position. There is postoperative air in the soft tissues.There is no evidence of complication. Impression: 1. Status post left knee arthroplasty. 2.No evidence of complication. Final report electronically signed by: Faisal Cao MD Signed by: FAISAL CAO MD 09/01/16 0944 cc: FAISAL CAO MD, [facility] [id number] 09:08:00 Test Item Value Reference Range Comments POC Glucose (test code = POC Glucose) 155 74-106 [id number] 11:51:[address] [id number] Patient: CECY RUIZ : 1945 Sex: F Address: [address] [place] [address] [place] [address] [id number] Unit #: [id number] REQ SEQ #: [id number] Location: Room #: Ordering: JANELL CALLAWAY MD Diagnosis: [id number] Exam: Two-view chest x-ray Technique: Frontaland lateral views of the chest Comparison: None available Indication: Preoperative chest x-ray for left knee surgery Findings: The lungs are clear. Heart size is enlarged without evidence of pulmonary edema. No pleural effusions or focal areas of consolidation are apparent. No acute osseous abnormalities are apparent. Conclusions: 1. No radiographic evidence of acute cardiopulmonary disease. 2. Cardiomegaly. Final report electronically signed by: Roddy Rodrigues MD Signed by: RODDY RODRIGUES MD 08/12/16 5325 cc: JANELL CALLAWAY MD, MICHAEL B MDBlood leukocytes automated count (number/volume)2016-08-12 11:11:00 Test Item Value Reference Range Comments Blood leukocytes automated count (number/volume) (test 6.6 3.6-11.1 code = 6690-2) Blood erythrocytes automated count (number/volume)2016-08-12 11:11:00 Test Item Value Reference Range Comments Blood erythrocytes automated count (number/volume) 3.83 3.69-4.88 (test code = 789-8) Automated erythrocyte mean corpuscular [id number] 11:11:00 Test Item Value Reference Range Comments Automated erythrocyte mean corpuscular volume (test 89.8 79.3-94.8 code = 787-2) Automated erythrocyte mean corpuscular hemoglobin (mass per erythrocyte) 2016-08-12 11:11:00 Test Item Value Reference Range Comments Automated erythrocyte mean corpuscular hemoglobin 29.9 26.8-33.2 (mass per erythrocyte) (test code = 785-6) Automated erythrocyte mean corpuscular hemoglobin concentration measurement (mass/volume)2016-08-12 11:11:00 Test Item Value Reference Range Comments Automated erythrocyte mean corpuscular hemoglobin 33.2 33.5-35.5 concentration measurement (mass/volume) (test code = 786-4) Automated erythrocyte distribution width [id number] 11:11:00 Test Item Value Reference Range Comments Automated erythrocyte distribution width ratio (test 13.7 12.0-15.1 code = 788-0) Automated blood platelet count (count/volume)2016-08-12 11:11:00 Test Item Value Reference Range Comments Automated blood platelet count (count/volume) (test 174 165-353 code = 777-3) Automated blood platelet mean volume pdpbvkeadgp2053-14-00 11:11:00 Test Item Value Reference Range Comments Automated blood platelet mean volume measurement (test 8.8 7.5-10.6 code = 78451-5) Total bilirubin measurement (moles/volume)2016-08-12 11:11:00 Test Item Value Reference Range Comments Total bilirubin measurement (moles/volume) (test code 0.7 0.2-1.3 = 75685-7) Total protein cunwg5126-62-62 11:11:00 Test Item Value Reference Range Comments Total protein blood (test code = 2885-2) 6.5 6.3-8.2 Serum or plasma albumin measurement (mass/volume)2016-08-12 11:11:00 Test Item Value Reference Range Comments Serum or plasma albumin measurement (mass/volume) 4.0 3.5-5.0 (test code = 1751-7) Serum globulin lzyfosdnvro4214-12-16 11:11:00 Test Item Value Reference Range Comments Serum globulin measurement (test code = 862215702) 2.5 1.2-3.2 Serum or plasma albumin/globulin mass [id number] 11:11:00 Test Item Value Reference Range Comments Serum or plasma albumin/globulin mass ratio (test code 1.6 1.1-2.5 = 1759-0) Aspartate aminotransferase (AST) to alanine aminotransferase (ALT) ratio 2016-08-12 11:11:00 Test Item Value Reference Range Comments Aspartate aminotransferase (AST) to alanine 20 14-3 6 aminotransferase (ALT) ratio (test code = 1916-6) Alkaline phosphatase isoenzymes avxfkaiygvn7186-93-27 11:11:00 Test Item Value Reference Range Comments Alkaline phosphatase isoenzymes measurement (test code 79 38-126 = 87243-9) Serum or plasma alanine aminotransferase measurement (enzymatic activity/volume) 2016-08-12 11:11:00 Test Item Value Reference Range Comments Serum or plasma alanine aminotransferase measurement 24 9.0-52.0 (enzymatic activity/volume) (test code = 1742-6) Renal Function Panel (10) ([facility]: 513563) (93738)2015-09-02 00:00:00 Test Item Value Reference Range Comments Potassium, Serum ([facility]: 318408) (test code = 4.4 mEq/L 3.5-5 2823-3) Creatinine, Serum ([facility]: 228304) (test code = 1.32 mg/dl 0.6-1.4 2160-0) Albumin, Serum ([facility]: 074090) (test code = 4.3 g/dl 3. 5-5.0 1751-7) Carbon Dioxide Serum ([facility]: 513953) (test code 22 mmol/L 23.0-29.0 = 2028-9) eGFR If Africn Am ([facility]: 855596) (test code = 47 mL/min >=60 82766-2) Phosphorus, Serum ([facility]: 965701) (test code = 4.4 mg/dl 2.4-4.5 2777-1) BUN/Creatinine Ratio ([facility]: 605551) (test code 13 = 3097-3) BUN (Blood Urea Nitrogen) ([facility]: 036106) (test 17 mg/dl 5.0-20.0 code = 3094-0) Calcium, Serum ([facility]: 297982) (test code = 9.1 mg/dl 8. 2-10.2 08919-3) eGFR ([facility]: 379430) (test code = 29718-5) 41 mL/min >90 Sodium, Serum ([facility]: 475057) (test code = 144 mmol/L 136 -145 2951-2) Chloride, Serum ([facility]: 241381) (test code = 100 mEq/L 9 7.0-107.0 2075-0) Vitamin D, 25-Hydroxy ([facility]: 459441) (93749)2015-09-02 00:00:00 Test Item Value Reference Range Comments Vitamin D, 25-Hydroxy ([facility]: 137448) (8230 33.0 ng/ml 30 -74.0 (test code = 1989-3) CBC with Differential/Platelets ([facility]: 307384) (08133)2015-09-02 00:00:00 Test Item Value Reference Range Comments Hemoglobin ([facility]: 391209) (test code = 11.1 g/dL 14.4-1 6.6 718-7) Red Blood Count (RBC) ([facility]: 804663) 3.77 10 X 6/uL 4.73-5.4 9 (test code = 789-8) White Blood Count (WBC) ([facility]: 164806) 5.9 10 X 9 cells/L 4.5 -11.0 (test code = 6690-2) Monocytes, Absolute ([facility]: 419646) 0.3 K/uL 0.0-4.0 (test code = 742-7) Lymphs ([facility]: 790699) (test code = 37 % 30.0-66.0 736-9) Platelets ([facility]: 725268) (test code = 241 k/uL 165-353 777-3) Immature Cells ([facility]: 456015) (test 0 code = 53028-7) Eosinophils ([facility]: 567726) (test code 5 % 0.0-5.0 = 713-8) Lymphs, Absolute ([facility]: 729352) (test 2.2 K/uL 1.5-4.0 code = 731-0) Immature Grans (Abs) ([facility]: 104470) 0.0 (test code = 09794-0) Neutrophils ([facility]: 070400) (test code 52 % 27.0-63 .0 = 770-8) MCH ([facility]: 234629) (test code = 785-6) 29.4 pg/cell 27-31 Eosinophils, Absolute ([facility]: 766223) 0.3 % 0.0-5.0 (test code = 711-2) Hematocrit ([facility]: 707308) (test code = 34.7 % 42.9-4 9.1 4544-3) MCHC ([facility]: 773365) (test code = 32.0 g/dL 32-36 786-4) MCV ([facility]: 732386) (test code = 787-2) 92 fL 80-95 Monocytes ([facility]: 070694) (test code = 5 5905-5) Neutrophils, Absolute ([facility]: 483840) 3.1 (test code = 751-8) RDW ([facility]: 044999) (test code = 788-0) 13.7 Basophils ([facility]: 973031) (test code = 1 % 0.0-1.0 706-2) Basophils, Absolute ([facility]: 519089) 0.1 % 0.0-1.0 (test code = 704-7) Intact PTH ([facility]: 689904) (06019)2015-09-02 00:00:00 Test Item Value Reference Range Comments Intact PTH ([facility]: 091837) (61384) (test code = 39 pg/mL 1565 2731-8) Assessments Condition Name Status Diagnosis Date Treating Clinici an Secondary hyperparathyroidism of renal Active origin Secondary hyperparathyroidism of renal Active origin High potassium Active Avitaminosis D Active High potassium Active Avitaminosis D Active Hypertensive kidney disease, benign Active Hypertensive kidney disease, benign Active Infection of urinary tract Active Infection of urinary tract Active Chronic kidney disease (CKD), stage III Active (moderate) Chronic kidney disease (CKD), stage III Active (moderate) Encounters Start End Encounter Admission Attending Care Care Encounter Date/Time Date/Time Type Type Clinicians Facility Department ID 2016-09-02 2018-09-07 Registered [facility] [id number] 00:02:00 00:01:00 Recurring JANELL 94 2016-09-01 2016-09-04 Inpatient [facility] [id number] 05:58:00 17:53:00 JANELL 96 2015-09-03 2015-09-03 Outpatient [facility] [id number] 15:58:00 15:58:00 [facility] 2015-01-23 2015-01-23 Outpatient [facility] [id number] 07:56:00 07:56:00 [facility] Immunizations Ordered Immunization Filled Immunization Date Status Commen ts Refusal Reason Name Name Vaccination Unknown Completed Payers Payer Name Policy Type Policy Number Effective Date Expiration D ate Social History This patient has no known social history. Vital Signs Vital Name Observation Time Observation Value Comments WEIGHT 2016-09-01 09:00:00 82.1 kg HEIGHT 2016-09-01 09:00:00 165.004572 cm WEIGHT 2016-09-01 05:58:00 86.800 kg HEIGHT 2016-09-01 05:58:00 165.366989 cm
== END 2020-04-10 10:17 | disposition home or self-care (01) ==
LOC: ER 00:53
DX: E11.65 Type 2 diabetes mellitus with hyperglycemia (principal); N39.0 Urinary tract infection, site not specified; R31.9 Hematuria, unspecified; H53.8 Other visual disturbances; I10 Essential (primary) hypertension; Z91.018 Allergy to other foods
CPT/HCPCS: 99284; 96365; 36415; 82962; 85025; 80053; 81001; J7030; J0696

== ENCOUNTER 2020-04-22 13:54 | Emergency (ER) | payer OTHER ==
[2020-04-22] MEDS ORDERED: ACETAMINOPHEN 325 MG TABLET PO ONE (15:22)
[2020-04-22] MEDS ORDERED: ONDANSETRON 4 MG TAB.RAPDIS PO ONE (15:28)
--- NOTE | 2020-04-22 15:37 | ER Document Report ---
ED Medical Screen (RME) - General Chief Complaint: Fall Stated Complaint: FALL/HEAD INJURY,KNEE PAIN Time Seen by Provider: 04/22/20 15:24 Primary Care Provider: ILANA VILLASEÑOR MD [Primary Care Provider] - Follow up as needed TRAVEL OUTSIDE OF THE [place] IN LAST 30 DAYS: No - HPI Notes: Patient is a 75-year-old female with a history of diabetes and hypertension who presents status post mechanical fall and head injury that occurred just prior to arrival. Patient states she was getting out of her car when she tripped and hit her forehead and landed on her left side. She denies any dizziness or symptoms prior to the fall. She denies loss of consciousness. She reports headache and nausea, as well as left elbow and knee pain. She is not on any blood thinners. - Related Data Allergies/Adverse Reactions: kiwi Allergy (Verified 04/10/20 01:23) Facial edema and rash Past Medical History - Past Medical History Cardiac Medical History: Reports: Hx Hypercholesterolemia, Hx Hypertension Denies: Hx Atrial Fibrillation, Hx Congestive Heart Failure, Hx Coronary Artery Disease, Hx Heart Attack Pulmonary Medical History: Reports: Hx Pneumonia Denies: Hx Asthma, Hx Bronchitis, Hx COPD, Hx Tuberculosis Neurological Medical History: Denies: Hx Cerebrovascular Accident, Hx Migraine, Hx Seizures Endocrine Medical History: Reports: Hx Diabetes Mellitus Type 1, Hx Diabetes Mellitus Type 2 Renal/ Medical History: Denies: Hx Peritoneal Dialysis GI Medical History: Denies: Hx Hepatitis, Hx Hiatal Hernia, Hx Ulcer Musculoskeltal Medical History: Denies Hx Arthritis, Denies Hx Gout, Denies Hx Multiple Sclerosis, Denies Hx Muscular Dystrophy Psychiatric Medical History: Reports: Hx Depression Traumatic Medical History: Denies: Hx Traumatic Brain Injury Infectious Medical History: Denies: Hx Hepatitis Past Surgical History: Reports: Hx Bowel Surgery, Hx Breast Surgery, Hx Orthopedic Surgery - left arm, collar bone, TKR. Denies: Hx Appendectomy, Hx Section, Hx Cholecystectomy, Hx Coronary Artery Bypass Graft, Hx Gastric Bypass Surgery, Hx Herniorrhaphy, Hx Hysterectomy, Hx Mastectomy, Hx Open Heart Surgery, Hx Pacemaker, Hx Tonsillectomy, Hx Tubal Ligation - Immunizations Hx Diphtheria, Pertussis, Tetanus Vaccination: No - unsure Physical Exam - Vital signs Vitals: Temp Pulse Resp BP Pulse Ox 97.3 F 79 19 151/63 H 98 04/22/20 14:32 04/22/20 14:32 04/22/20 14:32 04/22/20 14:32 04/22/20 14:32 - HEENT Head: Other - Hematoma to the forehead - Extremities Elbow: Tender - left Knee: Tender - left Course - Re-evaluation Re-evalutation: I have greeted and performed a rapid initial assessment of this patient. A comprehensive ED assessment and evaluation of the patient, analysis of test results and completion of medical decision making process will be conducted by an additional ED providers. - Vital Signs Vital signs: Temp Pulse Resp BP Pulse Ox 97.3 F 79 19 151/63 H 98 04/22/20 14:32 04/22/20 14:32 04/22/20 14:32 04/22/20 14:32 04/22/20 14:32 Doctor's Discharge - Discharge Referrals: ILANA VILLASEÑOR MD [Primary Care Provider] - Follow up as needed
--- NOTE | 2020-04-22 16:18 | RADIOLOGY REPORT (SQ) ---
EXAM DESCRIPTION: CT HEAD WITHOUT IMAGES COMPLETED DATE/TIME: 04/22/2020 4:08 pm REASON FOR STUDY: head injury COMPARISON: 11/08/2012 TECHNIQUE: Axial images acquired through the brain without intravenous contrast. Images reviewed wi th bone, brain and subdural windows. Additional sagittal and coronal reconstructions were generated. Images stored on PACS. All CT scanners at this facility use dose modulation, iterative reconstruction, and/or weight based d osing when appropriate to reduce radiation dose to as low as reasonably achievable (ALARA). [facility]: Dose Right [facility]: CareDose [facility]: Dose Right [facility]: Teradose 4D [facility]: [employer] RADIATION DOSE: mGy. LIMITATIONS: None. FINDINGS: VENTRICLES: Normal size and contour. CEREBRUM: No masses. No hemorrhage. No midline shift. No evidence for acute infarction. Some decre ased attenuation in the periventricular and subcortical white matter consistent with small vessel dis ease. CEREBELLUM: No masses. No hemorrhage. No alteration of density. No evidence for acute infarction. EXTRAAXIAL SPACES: No fluid collections. No masses. ORBITS AND GLOBE: No intra- or extraconal masses. Normal contour of globe without masses. CALVARIUM: No fracture. PARANASAL SINUSES: No fluid or mucosal thickening. SOFT TISSUES: Soft tissue hematoma overlying the frontal bone. OTHER: No other significant finding. IMPRESSION: Mild small-vessel ischemic changes. No acute intracranial event. Soft tissue hematoma overlying the frontal bone. EVIDENCE OF ACUTE STROKE: NO. COMMENT: Quality ID # [id number]: Final reports with documentation of one or more dose reduction techniques (e.g., Automated exposure control, adjustment of the mA and/or kV according to patient size, use of iterative reconstruction technique) TECHNICAL DOCUMENTATION: JOB ID: [id number] 2010 [employer]- All Rights Reserved Reading location - IP/workstation name: [email or web address]
--- NOTE | 2020-04-22 16:19 | RADIOLOGY REPORT (SQ) ---
EXAM DESCRIPTION: CT CERVICAL SPINE WITHOUT IMAGES COMPLETED DATE/TIME: 04/22/2020 4:08 pm REASON FOR STUDY: fall COMPARISON: None. TECHNIQUE: Axial images acquired through the cervical spine without intravenous contrast. Images re viewed with lung, soft tissue and bone windows. Reconstructed coronal and sagittal MPR images review ed. Images stored on PACS. All CT scanners at this facility use dose modulation, iterative reconstruction, and/or weight based d osing when appropriate to reduce radiation dose to as low as reasonably achievable (ALARA). [facility]: Dose Right [facility]: CareDose [facility]: Dose Right [facility]: Teradose 4D [facility]: [employer] RADIATION DOSE: CT Rad equipment meets quality standard of care and radiation dose reduction techniq ues were employed. CTDIvol: 17.3 - 53.2 mGy. DLP: 1302 mGy-cm. mGy. LIMITATIONS: None. FINDINGS: ALIGNMENT: Anatomic. MINERALIZATION: Normal. VERTEBRAL BODIES: No fractures or dislocation. DISCS: Multilevel disc space narrowing with osteophytes. FACETS, LATERAL MASSES, POSTERIOR ELEMENTS: Facet arthropathy. No fractures. No dislocation. No ac [place] findings. HARDWARE: None in the spine. VISUALIZED RIBS: No fractures. LUNG APICES AND SOFT TISSUES: No significant or acute findings. OTHER: Bilateral calcified thyroid nodules. IMPRESSION: CHRONIC DEGENERATIVE CHANGES. NO ACUTE FINDINGS. TECHNICAL DOCUMENTATION: JOB ID: [id number] Quality ID # [id number]: Final reports with documentation of one or more dose reduction techniques (e.g., Au tomated exposure control, adjustment of the mA and/or kV according to patient size, use of iterative reconstruction technique) 2010 [employer]- All Rights Reserved Reading location - IP/workstation name: [email or web address]
--- NOTE | 2020-04-22 16:34 | RADIOLOGY REPORT (SQ) ---
EXAM DESCRIPTION: FOREARM LEFT COMPLETED DATE/TIME: 04/22/2020 4:25 pm REASON FOR STUDY: fall COMPARISON: None. NUMBER OF VIEWS: Two views. TECHNIQUE: Two radiographic images acquired of the left forearm, including elbow and wrist in at [place] [address] one projection. LIMITATIONS: None. FINDINGS: MINERALIZATION: Normal. BONES: Postsurgical and posttraumatic changes involving the radius and ulna with fixation gloria in the ulna. Remodeling of the radius and ulna. No acute fracture or dislocation. SOFT TISSUES: No obvious swelling or foreign body. OTHER: No other significant finding. IMPRESSION: Postsurgical and posttraumatic changes involving the radius and ulna. No acute findings . TECHNICAL DOCUMENTATION: JOB ID: [id number] 2010 [employer]- All Rights Reserved Reading location - IP/workstation name: [email or web address]
--- NOTE | 2020-04-22 16:35 | RADIOLOGY REPORT (SQ) ---
EXAM DESCRIPTION: ELBOW LEFT OVER 2 VIEWS IMAGES COMPLETED DATE/TIME: 04/22/2020 4:25 pm REASON FOR STUDY: fall COMPARISON: None. NUMBER OF VIEWS: Four views. TECHNIQUE: AP, lateral, and both oblique radiographic images acquired of the left elbow. LIMITATIONS: None. FINDINGS: MINERALIZATION: Normal. BONES: Postsurgical changes in the ulna. No acute fracture or dislocation. JOINT: No effusion. SOFT TISSUES: No soft tissue swelling. No foreign body. OTHER: No other significant finding. IMPRESSION: Postsurgical changes in the ulna. No acute fracture or dislocation. TECHNICAL DOCUMENTATION: JOB ID: [id number] 2010 [employer]- All Rights Reserved Reading location - IP/workstation name: [email or web address]
--- NOTE | 2020-04-22 16:48 | RADIOLOGY REPORT (SQ) ---
EXAM DESCRIPTION: KNEE LEFT 4 VIEW IMAGES COMPLETED DATE/TIME: 04/22/2020 4:39 pm REASON FOR STUDY: Fall, left knee pain COMPARISON: None. NUMBER OF VIEWS: Four views. TECHNIQUE: AP, lateral, and both oblique radiographic images acquired of the left knee. LIMITATIONS: None. FINDINGS: MINERALIZATION: Normal. BONES: No acute fracture or dislocation. No worrisome bone lesions. JOINT: Prior total knee arthroplasty. SOFT TISSUES: No soft tissue swelling. No radio-opaque foreign body. OTHER: No other significant finding. IMPRESSION: Prior total joint replacement. No acute fracture or dislocation. TECHNICAL DOCUMENTATION: JOB ID: [id number] 2010 [employer]- All Rights Reserved Reading location - IP/workstation name: [email or web address]
--- NOTE | 2020-04-22 20:13 | ER Document Report ---
ED General - General Chief Complaint: Fall Stated Complaint: FALL/HEAD INJURY,KNEE PAIN Time Seen by Provider: 04/22/20 15:24 Primary Care Provider: ILANA VILLASEÑOR MD [Primary Care Provider] - Follow up as needed TRAVEL OUTSIDE OF THE [place] IN LAST 30 DAYS: No - HPI Notes: 75-year-old female presents after an accidental fall. Patient states that she was at the bank, she had just stepped out of her son's car and that she tripped over the cement median in the parking spot. She states that she fell to the ground, she hit her forehead and landed onto her left side. She states that she has a mild ache in her left arm, but overall does not complain of anything. She had no loss of consciousness, she denies neck pain. She has been ambulatory since the fall. Unknown last tetanus. - Related Data Allergies/Adverse Reactions: kiwi Allergy (Verified 04/10/20 01:23) Facial edema and rash Past Medical History - General Information source: Patient - Social History Smoking Status: Never Smoker Family History: Reviewed & Not Pertinent Patient has homicidal ideation: No - Past Medical History Cardiac Medical History: Reports: Hx Hypercholesterolemia, Hx Hypertension Denies: Hx Atrial Fibrillation, Hx Congestive Heart Failure, Hx Coronary Artery Disease, Hx Heart Attack Pulmonary Medical History: Reports: Hx Pneumonia Denies: Hx Asthma, Hx Bronchitis, Hx COPD, Hx Tuberculosis Neurological Medical History: Denies: Hx Cerebrovascular Accident, Hx Migraine, Hx Seizures Endocrine Medical History: Reports: Hx Diabetes Mellitus Type 1, Hx Diabetes Mellitus Type 2 Renal/ Medical History: Denies: Hx Peritoneal Dialysis GI Medical History: Denies: Hx Hepatitis, Hx Hiatal Hernia, Hx Ulcer Musculoskeletal Medical History: Denies Hx Arthritis, Denies Hx Gout, Denies Hx Multiple Sclerosis, Denies Hx Muscular Dystrophy Psychiatric Medical History: Reports: Hx Depression Traumatic Medical History: Denies: Hx Traumatic Brain Injury Infectious Medical History: Denies: Hx Hepatitis Past Surgical History: Reports: Hx Bowel Surgery, Hx Breast Surgery, Hx Orthopedic Surgery - left arm, collar bone, TKR. Denies: Hx Appendectomy, Hx Section, Hx Cholecystectomy, Hx Coronary Artery Bypass Graft, Hx Gastric Bypass Surgery, Hx Herniorrhaphy, Hx Hysterectomy, Hx Mastectomy, Hx Op en Heart Surgery, Hx Pacemaker, Hx Tonsillectomy, Hx Tubal Ligation - Immunizations Hx Diphtheria, Pertussis, Tetanus Vaccination: No - unsure Hx Pneumococcal Vaccination: 03/31/11 Review of Systems - Review of Systems Constitutional: No symptoms reported EENT: No symptoms reported Cardiovascular: No symptoms reported Respiratory: No symptoms reported Gastrointestinal: No symptoms reported Genitourinary: No symptoms reported Female Genitourinary: No symptoms reported Musculoskeletal: See HPI Skin: Other - Frank Hematologic/Lymphatic: No symptoms reported Neurological/Psychological: No symptoms reported Physical Exam - Vital signs Vitals: Temp Pulse Resp BP Pulse Ox 97.3 F 79 19 151/63 H 98 04/22/20 14:32 04/22/20 14:32 04/22/20 14:32 04/22/20 14:32 04/22/20 14:32 - General General appearance: Appears well, Alert In distress: None - HEENT Head: Normocephalic, Atraumatic, Ecchymosis - Central forehead Extraocular movements intact: Yes Pupils: PERRL Neck: Other - Full range of motion, no midline tenderness - Respiratory Chest status: Nontender Breath sounds: Normal - Cardiovascular Rhythm: Regular Heart sounds: Normal auscultation - Abdominal Tenderness: Nontender - Extremities Shoulder: Nontender - Bilateral Arm: Tender - Mild tenderness about abrasion to left forearm, Abrasion - Left forearm Elbow: Nontender - With full range of motion Hip: Nontender Knee: Nontender - Neurological Neuro grossly intact: Yes Cognition: Normal Orientation: AAOx4 Fareed Coma Scale Eye Opening: Spontaneous [place] Coma Scale Verbal: Oriented [place] Coma Scale Motor: Obeys Commands [place] Coma Scale Total: 15 Motor strength normal: LUE, RUE, LLE, RLE - Psychological Associated symptoms: Normal affect - Skin Skin Temperature: Warm Course - Re-evaluation Re-evalutation: 75-year-old female presents after she had a fall from standing in a parking lot, she hit her head on concrete and had no loss of consciousness. She is not on any blood thinners. On exam she is alert and well-appearing, she is hemodynamically stable and GCS 15. She does have ecchymosis to her forehead. No midline C-spine tenderness and full range of motion. She is neurologically intact. She has an abrasion to her left forearm and associated mild tenderness, she has preserved range of motion to all of her extremities. Due to the triage process she had imaging done. Her head CT is negative for bleed, her C-spine CT is negative for fracture, her elbow x-ray is negative for fracture and her knee x-ray shows preserved hardware. Patient received Tylenol and Zofran for her symptoms. Tetanus was also updated. Patient was updated on all of the results. Return precautions given, stable at time of discharge. - Vital Signs Vital signs: Temp Pulse Resp BP Pulse Ox 97.3 F 79 19 151/63 H 98 04/22/20 14:32 04/22/20 14:32 04/22/20 14:32 04/22/20 14:32 04/22/20 14:32 Discharge - Discharge Clinical Impression: Fall from standing Qualifiers: Encounter type: initial encounter Qualified Code(s): W19.XXXA - Unspecified fall, initial encounter Traumatic ecchymosis of forehead Qualifiers: Encounter type: initial encounter Qualified Code(s): S00.83XA - Contusion of other part of head, initial encounter Forearm abrasion Qualifiers: Encounter type: initial encounter Laterality: left Qualified Code(s): S50.812A - Abrasion of left forearm, initial encounter Disposition: HOME, SELF-CARE Additional Instructions: You may use [id number] medications for pain control, you can may also apply ice to the bruised. Please have close with your primary care doctor. Return to the emergency department for any concerning worsening symptoms. Referrals: ILANA VILLASEÑOR MD [Primary Care Provider] - Follow up as needed
[2020-04-22] MEDS ORDERED: DIPH/PERTUSS(ACELL)/TETANUS VAC/PF 0.5 ML SYR (>=10YO) IM ONE (20:21)
[2020-04-22 20:50] VITALS: BP 144/62
== END 2020-04-22 20:47 | disposition home or self-care (01) ==
LOC: ER 13:54
DX: S00.83XA Contusion of other part of head, initial encounter (principal); S50.812A Abrasion of left forearm, initial encounter; W01.10XA Fall on same level from slipping, tripping and stumbling with subsequent striking against unspecified object, initial encounter; Y92.481 Parking lot as the place of occurrence of the external cause; E78.00 Pure hypercholesterolemia, unspecified; I10 Essential (primary) hypertension; Z23 Encounter for immunization
CPT/HCPCS: 99285; 90471; 73080; 73090; 73564; 70450; 72125; 90715; A9270 ×2; S0119